=== PATIENT | male | born 1945 | race Caucasian/White ===

== ENCOUNTER 2024-06-08 10:54 | Day surgery (SDC) | payer OTHER, MEDICARE, SELFPAY ==
--- OUTSIDE RECORDS SUMMARY | 2024-06-02 03:49 | XMS_ITS | Continuity of Care Document ---
Author Name [facility] Organization [facility] Care Team Providers Care Memorandum Statement Clerk Name Role Phone [facility] Unavailable Unavailable Problems Combined list of problems from Department of Defense and Veterans Affairs facilities. It does not include entries that were removed or entered in error. 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) Active 976 Condition Aug 16, 2012 Entered By: GAURAV IYER Comment: s/p Photo Therapeutic Keratotomy in 2012 Entered By: GAURAV IYER Comment: Corneal transplant for recurrent ulcers in 2012 Entered By: GAURAV IYER Comment: Catract extraction in 2012 Entered By: GAURAV IYER Comment: Bleropheroplasty in 04/2011 [facility] Adjustment Disorder with Anxiety (ICD-9-CM 309.24) Active Condition [facility] Benign essential hypertension (SNOMED CT 1933798) Active Condition [facility] DJD * (ICD-9-CM 715.90) Active Condition [facility] F5 (Coagulation factor V) (eg, Hereditary Hypercoagulabilit y) Gene Analysis, Lei Active Condition Aug 16, 2012 Entered By: GAURAV IYER Comment: dx in 2009 prior to knee replaceement [facility] History of male erectile disorder (SNOMED CT 380522996) Active Condition [facility] HTN * (ICD-9-CM 401.9) Active Condition [facility] Hyperglycemia * (ICD-9-CM 790.29) Active Condition [facility] Hyperlipidemia (SNOMED CT 80759178) Active Condition [facility] Hyperlipidemia * (ICD-9-CM 272.4) Active Condition [facility] Inguinal hernia, without mention of obstruction or gangrene Active Condition Aug 16, 2012 Entered By: GAURAV IYER Comment: s/p L hernioraphy in 2007 and Rt in 2010 [facility] Keratoconus Nos Active Condition [facility] Kidney stone (SNOMED CT 28209203) Active Condition Aug 16, 2012 Entered By: GAURAV IYER Comment: s/p cystoscopy in 2012 Entered By: GAURAV IYER Comment: recurrence in 2007 but no further interventionsAug 16, 2012 Entered By: GAURAV IYER Comment: CT scan in 01/30 Stable [facility] Nephrolithiasis * (ICD-9-CM 592.0) Active Condition [facility] Osteoarthritis (SNOMED CT 345134652) Active Condition Aug 16, 2012 Entered By: GAURAV IYER Comment: Rt knee injury in 1968. 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 Medication Details Route Status Patient Instructions Prescription Expires Prescription Number Last Dispense Date Ordering Provider Order Date Order Qty Source ASCORBIC ACID 500MG TAB TAKE ONE TABLET BY MOUTH EVERY DAY ORAL ACTIVE JAYLON,ARS HAD 2012 [facility] ASPIRIN 81MG TAB,EC TAKE ONE TABLET BY MOUTH ORAL ACTIVE JAYLON,ARS HAD 2012 [facility] ATORVASTATI N CA 20MG TAB TAKE ONE TABLET BY MOUTH AT BEDTIME (FULL TABLET DOSE) FOR CHOLESTE ROL ORAL ACTIVE 09/21/2024 [id number] JAYLON,ARS HAD 2023 90 [facility] ATORVASTATI N CA 20MG TAB TAKE ONE TABLET BY MOUTH AT BEDTIME (FULL TABLET DOSE) FOR CHOLESTE ROL ORAL DISCONT INUED 01/28/2024 [id number] 4 JAYLON,ARS HAD 2022 90 [facility] EPINEPHRINE (EQV-EPI-PE N) 0.3MG/0.3ML INJECTOR INJECT 1 PEN DIRECTED NEEDED FOR ALLERGIC REACTION ACTIVE 11/24/2024 [id number] 4 JAYLON,ARS HAD 2023 2 [facility] GLUCOSAMINE CAP/TAB TAKE ACTIVE JAYLON,ARS HAD 2012 [facility] HYDROCHLORO THIAZIDE 12.5MG/GAYE NOPRIL 20MG TAB TAKE 1 TABLET BY MOUTH EVERY DAY ORAL DISCONT INUED 05/01/2023 [id number] 3 JAYLON,ARS HAD 2021 90 [facility] HYDROCHLORO THIAZIDE 12.5MG/GAYE NOPRIL 20MG TAB TAKE 1 TABLET BY MOUTH EVERY DAY ORAL 05/05/2024 [id number] 4 JAYLON,ARS HAD 2022 90 [facility] MARINE LIPID (FISH OIL) CAP,ORAL TAKE 3000GRAM BY MOUTH ORAL ACTIVE JAYLON,ARS HAD 2012 [facility] MULTIVITAMI NS CAP/TAB TAKE ONE TABLET BY MOUTH EVERY DAY ORAL ACTIVE JAYLON,ARS HAD 2012 [facility] SILDENAFIL CITRATE 100MG TAB TAKE ONE TABLET BY MOUTH NEEDED 1 HOUR BEFORE ANTICIPA HIGINIO SEXUAL ACTIVITY ORAL 05/05/2024 [id number] 4 JAYLON,ARS HAD 2022 18 [facility] Allergies, Adverse Reactions, Alerts Combined list of allergies from Department of Defense and Veterans Affairs facilities. It does not include entries that were removed or entered in error. Substance Category Reaction Severity Reaction type Status Date Reported Comments Source BEE STINGS Propensity to adverse reaction (finding) active 7 [facility] BEE STINGS Propensity to adverse reaction (finding) Anaphylaxis active 3 [facility] Immunizations Combined list of available immunizations from the Department of Defense and Veterans Affairs facilities. Immunization Series Date Given Administered By Site Reaction Lot Number CVX Code Drug Engraver Apprentice Decorative Status Comments Source INFLUENZA, SPLIT VIRUS, TRIVALENT, PF 2023 KEKE VELIZ LEFT DELTO ID [id number] 140 complet ed [place] [facility] COVID-19 (PFIZER), MRNA, LNP-S, PF, NEAL-SUCROSE, 30 MCG/0.3 ML (AGES 12+ YEARS) 1 2022 SERJIO LAW RIGHT DELTO ID [id number] 309 complet ed [place] [facility] INFLUENZA, HIGH-DOSE, QUADRIVALENT 2022 SERJIO LAW RIGHT DELTO ID [id number] 197 complet ed [facility] [facility] COVID-19 (PFIZER), MRNA, LNP-S, BIVALENT BOOSTER, PF, 30 MCG/0.3 ML DOSE 1 2021 300 complet ed PFR; [id number]; 3 [facility] INFLUENZA VACCINE, QUADRIVALENT, ADJUVANTED 2021 205 complet ed [facility] COVID-19 (PFIZER), MRNA, LNP-S, PF, 30 MCG/0.3 ML DOSE, NEAL-SUCROSE (AGES 12+ YEARS) 4 2021 217 complet ed PFR; [id number]; 2 [place] [facility] COVID-19 (PFIZER), MRNA, LNP-S, PF, 30 MCG/0.3 ML DOSE 3 2020 208 complet ed PFR; [id number]; 1 [place] [facility] INFLUENZA, INJECTABLE, QUADRIVALENT, PRESERVATIVE FREE 2020 150 complet ed [facility] COVID-19 (PFIZER), MRNA, LNP-S, PF, 30 MCG/0.3 ML DOSE 2 2020 208 complet ed PFR; [id number]; 1 [facility] COVID-19 (PFIZER), MRNA, LNP-S, PF, 30 MCG/0.3 ML DOSE 1 2020 208 complet ed PFR; [id number]; 1 [facility] INFLUENZA, INJECTABLE, QUADRIVALENT, PRESERVATIVE FREE 2019 150 complet ed [place] [facility] INFLUENZA, HIGH DOSE SEASONAL 2018 135 complet ed [facility] TD (ADULT) 2015 138 complet ed [employer], [id number], 7 [facility] ZOSTER LIVE 2014 121 complet ed [employer] lot# [id number], expiratio n 06-14-15 [facility] TD (ADULT), 2 LF TETANUS TOXOID, PRESERVATIVE FREE, ADSORBED 2010 09 complet ed [facility] TDAP 2005 115 complet ed [facility] TD(ADULT) UNSPECIFIED FORMULATION 2002 139 complet ed [facility] TD (ADULT), 2 LF TETANUS TOXOID, PRESERVATIVE FREE, ADSORBED 1993 09 complet ed [facility] Results Combined list of recent chemistry, hematology and other laboratory results from Department of Defense and Veterans Affairs, ranging from 15 months to all on record, depending upon the facility. Order Name Results Value Reference Range Date Interpretation Specimen Comments Source PSA PROSTATE SPECIFIC AG [MASS/VOLUM E] IN SERUM OR PLASMA <0.01n g/mL <4.00 - 4.00 09/17 Specimen Type: SERUM No comment entered. Ordering Provider: ANGIE IYER Report Released Date/Time: Aug 05, 2023 05:03 PM Reporting Lab: [facility] [address] Performing Lab: [facility] [address] [facility] HEMOGLOBI N A1C HEMOGLOBIN A1C/HEMOGLO BIN.TOTAL IN BLOOD 5.3 4.0 - 6.0 09/17 Specimen Type: BLOOD Comment: Values obtained from A1C measurement s can vary. For typical A1C assays, a reported value of 7.0 could actually be between 6.7 and 7.3 if measured by a reference method. A reported value of 9.0 could actually be between 8.7 and 9.3. Ref: http://www. ngsp.org/[place] Pdata.asp Ordering Provider: ANGIE IYER Report Released Date/Time: Aug 05, 2023 05:03 PM Reporting Lab: [facility] [address] Performing Lab: [facility] [address] [facility] TSH W/REFLEX TO FREE T4 THYROTROPIN [UNITS/VOLU ME] IN SERUM OR PLASMA 1.61 u[IU]/ mL 0.35 - 4.94 09/17 Specimen Type: PLASMA No comment entered. Ordering Provider: ANGIE IYER Report Released Date/Time: Aug 05, 2023 05:03 PM Reporting Lab: [facility] [address] Performing Lab: [facility] [address] [facility] COMPREHEN SIVE METABOLIC PANEL+MG CREATININE [MASS/VOLUM E] IN SERUM OR PLASMA 1.0 mg/dL 0.7 - 1.2 09/17 Specimen Type: PLASMA No comment entered. Ordering Provider: ANGIE IYER Report Released Date/Time: Aug 05, 2023 05:03 PM Reporting Lab: [facility] [address] Performing Lab: [facility] [address] [facility] COMPREHEN SIVE METABOLIC PANEL+MG UREA NITROGEN [MASS/VOLUM E] IN SERUM OR PLASMA 19 mg/dL 8 - 26 09/17 Specimen Type: PLASMA No comment entered. Ordering Provider: ANGIE IYER Report Released Date/Time: Aug 05, 2023 05:03 PM Reporting Lab: [facility] [address] Performing Lab: [facility] [address] [facility] COMPREHEN SIVE METABOLIC PANEL+MG GLUCOSE [MASS/VOLUM E] IN SERUM OR PLASMA 109 mg/dL 70 - 100 09/17 H Specimen Type: PLASMA No comment entered. Ordering Provider: ANGIE IYER Report Released Date/Time: Aug 05, 2023 05:03 PM Reporting Lab: [facility] [address] Performing Lab: [facility] [address] [facility] COMPREHEN SIVE METABOLIC PANEL+MG SODIUM [MOLES/VOLU ME] IN SERUM OR PLASMA 138 mmol/L 136 - 145 09/17 Specimen Type: PLASMA No comment entered. Ordering Provider: ANGIE IYER Report Released Date/Time: Aug 05, 2023 05:03 PM Reporting Lab: [facility] [address] Performing Lab: [facility] [address] [facility] COMPREHEN SIVE METABOLIC PANEL+MG POTASSIUM [MOLES/VOLU ME] IN SERUM OR PLASMA 4.0 mmol/L 3.5 - 5.1 09/17 Specimen Type: PLASMA No comment entered. Ordering Provider: ANGIE IYER Report Released Date/Time: Aug 05, 2023 05:03 PM Reporting Lab: [facility] [address] Performing Lab: [facility] [address] [facility] COMPREHEN SIVE METABOLIC PANEL+MG CHLORIDE [MOLES/VOLU ME] IN SERUM OR PLASMA 102 mmol/L 98 - 107 09/17 Specimen Type: PLASMA No comment entered. Ordering Provider: ANGIE IYER Report Released Date/Time: Aug 05, 2023 05:03 PM Reporting Lab: [facility] [address] Performing Lab: [facility] [address] [facility] COMPREHEN SIVE METABOLIC PANEL+MG CARBON DIOXIDE, TOTAL [MOLES/VOLU ME] IN SERUM OR PLASMA 26 mmol/L 22 - 29 09/17 Specimen Type: PLASMA No comment entered. Ordering Provider: ANGIE IYER Report Released Date/Time: Aug 05, 2023 05:03 PM Reporting Lab: [facility] [address] Performing Lab: [facility] [address] [facility] COMPREHEN SIVE METABOLIC PANEL+MG CALCIUM [MASS/VOLUM E] IN SERUM OR PLASMA 9.9 mg/dL 8.4 - 10.2 09/17 Specimen Type: PLASMA No comment entered. Ordering Provider: ANGIE IYER Report Released Date/Time: Aug 05, 2023 05:03 PM Reporting Lab: [facility] [address] Performing Lab: [facility] [address] [facility] COMPREHEN SIVE METABOLIC PANEL+MG PROTEIN [MASS/VOLUM E] IN SERUM OR PLASMA 7.1 g/dL 6.0 - 8.3 09/17 Specimen Type: PLASMA No comment entered. Ordering Provider: ANGIE IYER Report Released Date/Time: Aug 05, 2023 05:03 PM Reporting Lab: [facility] [address] Performing Lab: [facility] [address] [facility] COMPREHEN SIVE METABOLIC PANEL+MG ALBUMIN [MASS/VOLUM E] IN SERUM OR PLASMA 4.3 g/dL 3.5 - 5.2 09/17 Specimen Type: PLASMA No comment entered. Ordering Provider: ANGIE IYER Report Released Date/Time: Aug 05, 2023 05:03 PM Reporting Lab: [facility] [address] Performing Lab: [facility] [address] [facility] COMPREHEN SIVE METABOLIC PANEL+MG BILIRUBIN.T OTAL [MASS/VOLUM E] IN SERUM OR PLASMA 0.9 mg/dL 0.2 - 1.2 09/17 Specimen Type: PLASMA No comment entered. Ordering Provider: ANGIE IYER Report Released Date/Time: Aug 05, 2023 05:03 PM Reporting Lab: [facility] [address] Performing Lab: [facility] [address] [facility] COMPREHEN SIVE METABOLIC PANEL+MG MAGNESIUM [MASS/VOLUM E] IN SERUM OR PLASMA 1.8 mg/dL 1.6 - 2.6 09/17 Specimen Type: PLASMA No comment entered. Ordering Provider: ANGIE IYER Report Released Date/Time: Aug 05, 2023 05:03 PM Reporting Lab: [facility] [address] Performing Lab: [facility] [address] [facility] COMPREHEN SIVE METABOLIC PANEL+MG ANION GAP IN SERUM OR PLASMA 10 mmol/L 5 - 15 09/17 Specimen Type: PLASMA No comment entered. Ordering Provider: ANGIE IYER Report Released Date/Time: Aug 05, 2023 05:03 PM Reporting Lab: [facility] [address] Performing Lab: [facility] [address] [facility] COMPREHEN SIVE METABOLIC PANEL+MG ALKALINE PHOSPHATASE [ENZYMATIC ACTIVITY/VO LUME] IN SERUM OR PLASMA 63 U/L 40 - 150 09/17 Specimen Type: PLASMA No comment entered. Ordering Provider: ANGIE IYER Report Released Date/Time: Aug 05, 2023 05:03 PM Reporting Lab: [facility] [address] Performing Lab: [facility] [address] [facility] COMPREHEN SIVE METABOLIC PANEL+MG ALANINE AMINOTRANSF ERASE [ENZYMATIC ACTIVITY/VO LUME] IN SERUM OR PLASMA 27 U/L <55 - 55 09/17 Specimen Type: PLASMA No comment entered. Ordering Provider: ANGIE IYER Report Released Date/Time: Aug 05, 2023 05:03 PM Reporting Lab: [facility] [address] Performing Lab: [facility] [address] [facility] COMPREHEN SIVE METABOLIC PANEL+MG ASPARTATE AMINOTRANSF ERASE [ENZYMATIC ACTIVITY/VO LUME] IN SERUM OR PLASMA 25 U/L <34 - 34 09/17 Specimen Type: PLASMA No comment entered. Ordering Provider: ANGIE IYER Report Released Date/Time: Aug 05, 2023 05:03 PM Reporting Lab: [facility] [address] Performing Lab: [facility] [address] [facility] COMPREHEN SIVE METABOLIC PANEL+MG GLOMERULAR FILTRATION RATE/1.73 SQ M.PREDICTED [VOLUME RATE/AREA] IN SERUM, PLASMA OR BLOOD BY CREATININE- BASED FORMULA (CKD-EPI 2020) 77 60 09/17 Specimen Type: PLASMA No comment entered. Ordering Provider: ANGIE IYER Report Released Date/Time: Aug 05, 2023 05:03 PM Reporting Lab: [facility] [address] Performing Lab: [facility] [address] [facility] LIPID PANEL,NON -FASTING CHOLESTEROL [MASS/VOLUM E] IN SERUM OR PLASMA 174 mg/dL <199 - 199 09/17 Specimen Type: PLASMA No comment entered. Ordering Provider: ANGIE IYER Report Released Date/Time: Aug 05, 2023 05:03 PM Reporting Lab: [facility] [address] Performing Lab: [facility] [address] [facility] LIPID PANEL,NON -FASTING CHOLESTEROL IN HDL [MASS/VOLUM E] IN SERUM OR PLASMA 46 mg/dL 40 09/17 Specimen Type: PLASMA No comment entered. Ordering Provider: ANGIE IYER Report Released Date/Time: Aug 05, 2023 05:03 PM Reporting Lab: [facility] [address] Performing Lab: [facility] [address] [facility] LIPID PANEL,NON -FASTING CHOLESTEROL IN LDL [MASS/VOLUM E] IN SERUM OR PLASMA BY CALCULATION 96 mg/dL <99 - 99 09/17 Specimen Type: PLASMA No comment entered. Ordering Provider: ANGIE IYER Report Released Date/Time: Aug 05, 2023 05:03 PM Reporting Lab: [facility] [address] Performing Lab: [facility] [address] [facility] LIPID PANEL,NON -FASTING CHOLESTEROL IN VLDL [MASS/VOLUM E] IN SERUM OR PLASMA BY CALCULATION 32 mg/dL <29 - 29 09/17 H Specimen Type: PLASMA No comment entered. Ordering Provider: ANGIE IYER Report Released Date/Time: Aug 05, 2023 05:03 PM Reporting Lab: [facility] [address] Performing Lab: [facility] [address] [facility] LIPID PANEL,NON -FASTING CHOLESTEROL NON HDL [MASS/VOLUM E] IN SERUM OR PLASMA 128 mg/dL <129 - 129 09/17 Specimen Type: PLASMA No comment entered. Ordering Provider: ANGIE IYER Report Released Date/Time: Aug 05, 2023 05:03 PM Reporting Lab: [facility] [address] Performing Lab: [facility] [address] [facility] LIPID PANEL,NON -FASTING TRIGLYCERID E [MASS/VOLUM E] IN SERUM OR PLASMA 162 mg/dL <149 - 149 09/17 H Specimen Type: PLASMA No comment entered. Ordering Provider: ANGIE IYER Report Released Date/Time: Aug 05, 2023 05:03 PM Reporting Lab: [facility] [address] Performing Lab: [facility] [address] [facility] Vital Signs Combined list of inpatient and outpatient Vital Signs from Department of Defense and Veterans Affairs, ranging from 12 months to all on record, depending upon the facility. Vital Sign Value Date Comments Source SYSTOLIC BLOOD PRESSURE 162 09/21/2023 13:38:43 [facility] DIASTOLIC BLOOD PRESSURE 96 09/21/2023 13:38:43 [facility] PULSE OXIMETRY 96 09/21/2023 13:38:43 [facility] WEIGHT 206.2 09/21/2023 13:38:43 [facility] BMI 31kg/m2 09/21/2023 13:38:43 [facility] PAIN 0 09/21/2023 13:38:43 [facility] HEIGHT 68.5 09/21/2023 13:38:43 [facility] TEMPERATURE 97.4 09/21/2023 13:38:43 [facility] PULSE 64 09/21/2023 13:38:43 [facility] RESPIRATION 17 09/21/2023 13:38:43 [facility] Encounters Combined list of: 1) Encounters from Department of Veterans Affairs facilities going back up to thelast 18 months. 2) Encounters from the Department of Defense facilities going back up to 280 months. Location Location Details Encounter Type Encounter Number Reason For Visit Attending Provider ADM Date DC Date Status Disposition Source [place] [facility] ADMN SARSCOV2 VACC 1 DOSE [id number] Diagnos is: ICD-10- CM Z23 Encount er for immuniz ation<b r/> Lucy LAW 05/22 [place] [facility] [place] [facility] Outpatient Encounter [id number] 05/22 [facility] [place] [facility] Outpatient Encounter [id number] 06/02 [facility] [place] [facility] Outpatient Encounter [id number] 08/05 [facility] [place] [facility] Outpatient Encounter [id number] DIGNA JACQUES 09/17 [facility] Outpatient Encounter [id number] Diagnos is: ICD-10- CM D07.5 Carcino ma in situ of prostat e
FLORENCIO IYER 09/20 [facility] [place] [facility] Outpatient Encounter [id number] CORBY LOPEZ 01/10 [place] [place] [facility] Outpatient Encounter [id number] Vince GRAHAM 01/11 [place] [facility] [place] [facility] Outpatient Encounter [id number] HERMELINDA MCCULLOUGH SA 01/12 [facility] [place] [facility] Outpatient Encounter [id number] 01/21 [place] [facility] [place] [facility] Outpatient Encounter [id number] Kimberly JAIMES 02/03 [place] [facility] [place] [facility] Outpatient Encounter [id number] 02/03 [place] [facility] [place] [facility] Outpatient Encounter [id number] 03/15 [place] [facility] [facility] OFF/OP EST OCTOBER X REQ PHY/QHP [id number] Diagnos is: ICD-10- CM Z23 Encount er for immuniz ation<b r/> FABIEN VELIZ 03/16 [place] [facility] Social History Combined list of available smoking, tobacco, and other social history from Department of Defense and [facility] facilities. Social History Type Response Date Comment [facility] e Tobacco smoking status [facility]-TOBACCO NEVER USED 09/18/2023 GEORGE Clarke [facility] History of tobacco use [place]-TOBACCO NEVER USED 04/30/2022 [facility] History of tobacco use [place]-TOBACCO NEVER USED 03/04/2021 [facility] History of tobacco use [place]-TOBACCO NEVER USED 09/27/2018 [facility] History of tobacco use 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 [employer] USER 10/14/2017 [facility] History of tobacco use 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 [employer]ENT USER 11/03/2016 [facility] History of tobacco use 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 [employer]ENT USER 10/23/2015 [facility] History of tobacco use 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 [employer]ENT USER 10/25/2014 [facility] History of tobacco use 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 [employer]ENT USER 09/28/2013 [facility] History of tobacco use 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 [employer]ENT USER 08/16/2012 [facility] History of tobacco use 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-USER OF TOBACCO 01/07/2010 [facility] History of tobacco use 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 [employer] USER 07/20/2006 [facility] Advance Directives List of completed, amended, or rescinded Advance Directives on record at Department of [facility] Affairs facilities. An actual copy of the Directive is not included. Date Advance Directive Provider Source 10/08/2021 ADVANCE DIRECTIVE KRISTINE [facility] 06/27/2011 ADVANCE DIRECTIVE DISCUSSION [facility] 06/27/2011 ADVANCE DIRECTIVE KENYA AVILA [facility]
--- OUTSIDE RECORDS SUMMARY | 2024-06-02 03:49 | XMS_ITS | Encounter Summary ---
Author Name [facility] [place] Address [address] [place] [address] Care Team Providers Care Employee Benefits Director Name Role Phone GAURAV IYER Primary Care Provider Unavailabl e Insurance Providers: All historical and current Section Date Range: From patient's date of to the date document was created. This section includes the names of all active insurance providers for the patient. Insurance Provider Type of Coverage Plan Name Start of Policy Coverage End of Policy Coverage Group Number Member ID Insurance Provider's Telephone Number Policy Cazares's Name Patient's Relationship to Policy Cazares BCBS [facility] (WNR) MEDICARE ADVANTAGE [facility]) Jun 22, 2022 [id number] [phone] OLESYA REDDY PATIENT CIGNA RETIREE XOG May 22, 2010 [id number] [phone] OLESYA REDDY PATIENT CIGNA MEDICARE SUPPLEMENT MEDICARE SUPPLEMEN RADHIKA MEDIC ARE SUPPL EMENT Jun 22, 2016 PLAN [place] BASIC [id number] OLESYA REDDY PATIENT MEDICARE (WNR) MEDICARE (M) PART A May 22, 2010 PART A [id number] [phone] OLESYA REDDY PATIENT MEDICARE (WNR) MEDICARE (M) PART B May 22, 2010 PART B [id number] [phone] OLESYA REDDY PATIENT MEDICARE (WNR) MEDICARE (M) PART A May 22, 2010 PART A [id number] [phone] OLESYA REDDY PATIENT MEDICARE (WNR) MEDICARE (M) PART B May 22, 2010 PART B [id number] [phone] OLESYA REDDY PATIENT Selected Encounter This section includes the information on record at [place] for the Encounter. Date/Time Encounter Type Encounter Description Reason Provider Source Sep 18, 2023 03:06 PM Outpatient Encounter PRIMARY CARE/MEDICINE CORI JACQUES Pradeep Encounter Template Text not used by [place] Plan of Treatment: Future Appointments (+ 6 months) and Future Tests (+/- 45 days) The Plan of Treatment section includes future care activities for the patient from all [place] treatmentfacilities. This section includes future appointments and future orders which are active, pending or scheduled. Future Appointments This section includes appointments that were scheduled to occur 6 months from the date of the Encounter, up to a maximum of 20 appointments. The data comes from all [place] treatment facilities. Appointment Date/Time Appointment Type Appointme nt Facility Name Sep 21, 2023 01:30 PM AMBULATORY - MEDICINE [facility] Jan 13, 2024 08:11 AM AMBULATORY - NONE [facility] Lab Results: +/- 30 days of the encounter This section includes the Chemistry and Hematology Lab Results on record with [place] for the patient. Radiology Reports and Pathology Reports are provided separately, in subsequent sections. Lab Results This section contains the Chemistry/Hematology Results that were resulted 30 days before or 30 daysafter the date of the Encounter. Date/Time Source Result Type Result - Unit Interpretation Reference Range Comment Sep 18, 2023 09:46 AM [facility] HEMOGLOBIN A1C Specimen Type: BLOOD Comment: Values obtained from A1C measurements can vary. For typical A1C assays, a reported value of 7.0 could actually be between 6.7 and 7.3 if measured by a reference method. A reported value of 9.0 could actually be between 8.7 and 9.3. Ref: http://www.ngs p.org/CAPdata. asp Ordering Provider: GAURAV IYER Report Released Date/Time: Aug 05, 2023 05:03 PM Reporting Lab: [facility] [id number] Performing Lab: [facility] [id number] HEMOGLOBIN A1C 5.3 4.0-6.0 Sep 18, 2023 09:46 AM [facility] PSA Specimen Type: SERUM No comment entered. Ordering Provider: GAURAV IYER Report Released Date/Time: Aug 05, 2023 05:03 PM Reporting Lab: [facility] [phone] Performing Lab: [facility] [id number] PSA <0.01 ng/mL <4.00 Sep 18, 2023 09:46 AM [facility] TSH W/REFLEX TO FREE T4 Specimen Type: PLASMA No comment entered. Ordering Provider: GAURAV IYER Report Released Date/Time: Aug 05, 2023 05:03 PM Reporting Lab: [facility] [id number] Performing Lab: [facility] [id number] TSH 1.61 u[IU]/mL 0.35-4.94 Sep 18, 2023 09:46 AM [facility] LIPID PANEL,NON-FASTING Specimen Type: PLASMA No comment entered. Ordering Provider: GAURAV IYER Report Released Date/Time: Aug 05, 2023 05:03 PM Reporting Lab: [facility] [id number] Performing Lab: [facility] [phone] CHOLESTEROL 174 mg/dL <199 .HDL 46 mg/dL >40 LDL CALCULATION 96 mg/dL <99 VLDL CALCULATION 32 mg/dL H <29 NON HDL CHOLESTEROL 128 mg/dL <129 TRIG(NON FASTING) 162 mg/dL H <149 Sep 18, 2023 09:46 AM [facility] COMPREHENSIVE METABOLIC PANEL+MG Specimen Type: PLASMA No comment entered. Ordering Provider: GAURAV IYER Report Released Date/Time: Aug 05, 2023 05:03 PM Reporting Lab: [facility] [phone] Performing Lab: [facility] [phone] CREATININE 1.0 mg/dL 0.7-1.2 UREA NITROGEN 19 mg/dL 8-26 GLUCOSE 109 mg/dL H 70-100 SODIUM 138 mmol/L 136-145 POTASSIUM 4.0 mmol/L 3.5-5.1 CHLORIDE 102 mmol/L 98-107 CO2 26 mmol/L 22-29 CALCIUM 9.9 mg/dL 8.4-10.2 PROTEIN,TOTAL 7.1 g/dL 6.0-8.3 ALBUMIN 4.3 g/dL 3.5-5.2 BILIRUBIN, TOTAL 0.9 mg/dL 0.2-1.2 MAGNESIUM 1.8 mg/dL 1.6-2.6 ANION GAP 10 mmol/L 5-15 ALKALINE PHOSPHATASE 63 U/L 40-150 ALT/SGPT 27 U/L <55 AST/SGOT 25 U/L <34 .CREAT EGFR(CKD-EPI) 77 >60 Social History: Smoking Status (Most current) and Tobacco Use (All prior to encounter date) This section includes the most current, and the historical, smoking and tobacco- related health factors from the [place] facility where the Encounter took place. Current Smoking Status This section includes the most current smoking, or tobacco-related health factor, from the [place] facility where the Encounter took place. Date/Time Current Smoking Status Comment Facil ity Sep 18, 2023 03:06 PM [place]-TOBAC[place] NEVER USED [facility] Tobacco Use History This section includes a history of the smoking, or tobacco-related health factors, that were collected on or before the date of the Encounter. The data comes from the [place] facility where the Encounter took place. Date/Time Smoking Status/Tobacco Use Comment F krystal Mar 04, 2021 12:55 PM [place]-TOBAC[place] NEVER USED [facility] Advance Directives: All historical and current Section Date Range: From patient's date of to the date document was created. This section includes ALL of a patient's completed or amended [place] Advance and Rescinded Directives. The entries below indicate that a directive exists for the patient, but an actual copy is not included with this document. The data comes from all [place] facilities. Date Advance Directives Provider Source Oct 08, 2021 ADVANCE DIRECTIVE KRISTINE PINK [facility] Oct 08, 2021 ADVANCE DIRECTIVE DISCUSSION Patsy PINK [facility] Jun 27, 2011 ADVANCE DIRECTIVE DISCUSSION [facility] Jun 27, 2011 ADVANCE DIRECTIVE KENYA AVILA [facility] Encounter Notes: All associated encounter notes This section contains the clinical notes associated to the Encounter. Date/Time Encounter Note(s) Provider Source Sep 18, 2023 03:12 PM ADVANCE DIRECTIVE: LOCAL TITLE: AD NOTIFICATION AND SCREENING STANDARD TITLE: ADVANCE DIRECTIVE DATE OF NOTE: SEP 18, 2023@15:12 ENTRY DATE: SEP 18, 2023@15:12:19 AUTHOR: CORI JACQUES EXP COSIGNER: URGENCY: STATUS: COMPLETED ADVANCE DIRECTIVE NOTIFICATION: Patient was given written notification of the following rights: 1. Accept or refuse any medical treatment. 2. Complete a durable power of commonwealth attorney for health care. 3. Complete a living will. ADVANCE DIRECTIVE SCREENING: Does patient have an Advance Directive? The patient has an Advance Directive. Does the patient wish to make any changes or revoke their current Advance Directive? No changes requested at this time. /brissa/ CORI JACQUES LPN INSTALLER APPRENTICE Signed: 09/18/2023 15:12 [facility] Sep 18, 2023 03:06 PM PRIMARY CARE NURSI NG NOTE: LOCAL TITLE: [facility] NURSING PROGRESS NOTE STANDARD TITLE: PRIMARY CARE NURSING NOTE DATE OF NOTE: SEP 18, 2023@15:06 ENTRY DATE: SEP 18, 2023@15:06:29 AUTHOR: CORI JACQUES EXP COSIGNER: URGENCY: STATUS: COMPLETED [facility] NURSING PROGRESS NOTE Has ADDENDA Alcohol Use Screen (AUDIT-C): Alcohol Screen: SCREEN FOR ALCOHOL (AUDIT-C) An alcohol screening test (AUDIT-C) was negative (score=1). 1. How often did you have a drink containing alcohol in the past year? Consider a drink to be a 12 ounce can or bottle of regular beer, 8 ounces of malt liquor, a 5 ounce glass of table wine, or a 1.5 ounce shot of liquor (like scotch, gin, or vodka). Monthly or less 2. How many drinks containing alcohol did you have on a typical day when you were drinking in the past year? One or two drinks 3. How often did you have six or more drinks on one occasion in the past year? Never PTSD Screening: PC-PTSD-5 A PTSD screening test (PC-PTSD-5) was negative (score=0). IN THE PAST MONTH, have you ever had any experience that was so frightening, horrible or traumatic. For example: A serious accident or fire a physical or sexual assault or abuse An earthquake or flood A war Seeing someone be killed or seriously injured Having a loved one through homicide or suicide 1. Have you ever experienced this kind of event? NO 2. Had nightmares about the event(s) or thought about the event(s) when you did not want to? Response not required due to responses to other questions. 3. Tried hard not to think about the event(s) or went out of your way to avoid situations that reminded you of the event(s)? Response not required due to responses to other questions. 4. Been constantly on guard, watchful, or easily startled? Response not required due to responses to other questions. 5. Chancellor numb or detached from people, activities, or your surroundings? Response not required due to responses to other questions. 6. Chancellor guilty or unable to stop blaming yourself or others for the event(s) or any problems the event(s) may have caused? Response not required due to responses to other questions. Nursing Annual Screening: Fall History Screen During the past 12 months, have you had any falls? Patient reports having had 2 or more falls within the past 12 months. MEDICATIONS: Patient is on one of the following medication classes: Antihypertensives, Antidepressants, Antipsychotics, Diuretics, or Controlled substance medication used for pain. Script Talk Screen Are you able to read your prescription bottles with your glasses, magnifiers or other aids? Yes or patient not taking any prescriptions. Skin Screen Patient reports any current pressure ulcers, a history of pressure ulcers, or a wound from a nurses medical assistants phlebotomists or Patient is bed-confined or a wheelchair-user or Patient requires assistance to transfer/change position No, Skin Screen is Negative Home Abuse/Violence Screen Is your home free of abuse and violence? Yes MOVE! Program Screen Body Mass Index (BMI)= 29.7 [place]: Collection DT Specimen Test Name Result Units Ref Range 04/30/2022 13:42 BLOOD !! HEMOGLOBIN A1C 5.0 % 4.0 - 6.0 !! Indicates COMMENTS AVAILABLE...Refer to Interim Lab Report. [place] Hgb A1C: No data available Ramer Hgb A1C: No data available Point of Care Hgb A1C: POC HGB A1C____ Outpatient Nutrition Screen Body Mass Index (BMI)= 29.7 [place]: Collection DT Specimen Test Name Result Units Ref Range 04/30/2022 13:42 BLOOD !! HEMOGLOBIN A1C 5.0 % 4.0 - 6.0 !! Indicates COMMENTS AVAILABLE...Refer to Interim Lab Report. Bakari Frias Hgb A1C: No data available Ramer Hgb A1C: No data available Point of Care Hgb A1C: POC HGB A1C____ Is patient's BMI less than 18.5? No Does patient have swallowing, coughing, or chewing problems affecting oral intake? No Has patient experienced unplanned weight loss or gain greater than 10 pounds over the last 2 months? No Is patient's Hgb A1C (Glycosylated Hemoglobin) greater than 9.5? Information not available Is patient receiving Total Parenteral Nutrition (TPN) or Tube Feedings? No Patient Health Education Screen BARRIERS/SPECIAL NEEDS: No barriers identified PREFERRED STYLE OF LEARNING: No preference stated Client Assistive Service (LYNNE) Screen Does the patient require assistance with outpatient visit? No Tobacco Use Screening: The patient has never used tobacco. Homelessness/Food Insecurity Screen: In the past 2 months, have you been living in stable housing that you own, rent, or stay in as part of a household? Yes - Living in stable housing. Are you worried or concerned that in the next 2 months you may NOT have stable housing that you own, rent, or stay in as part of a household? No - Not worried about housing near future The reports the following: Within the past 12 months, you worried whether your food would run out before you got money to buy more. Never true Within the past 12 months, the food you bought just didn't last and you didn't have money to get more. Never true Food Assistance Programs [facility] Food Assistance Programs [facility] /brissa/ CORI JACQUES LPN, LPN Signed: 09/18/2023 15:09 09/18/2023 ADDENDUM STATUS: COMPLETED Sexual Orientation: The patient thinks of their sexual orientation as: Straight or Heterosexual /brissa/ CORI JACQUES LPN, LPN Signed: 09/18/2023 15:[address] [facility]
--- OUTSIDE RECORDS SUMMARY | 2024-06-02 03:49 | XMS_ITS | Encounter Summary ---
Author Name [facility] [place] Address [address] [place] [address] Care Team Providers Care Business Development Executive Name Role Phone GAURAV IYER Primary Care [...] Name Patient's Relationship to Policy Cazares BCBS [facility] ([facility]) MEDICARE ADVANTAGE [facility] ([facility]) Jun 22, 2022 [id number] [phone] OLESYA REDDY PATIENT CIGNA RETIREE ALLIA [employer] May 22, 2010 [id number] OLESYA REDDY PATIENT CIGNA MEDICARE SUPPLEMENT MEDICARE SUPPLEMEN RADHIKA MEDIC ARE SUPPL EMENT Jun 22, 2016 PLAN [place] BASIC [id number] OLESYA REDDY PATIENT MEDICARE (WNR) MEDICARE (M) PART A May 22, 2010 PART A [id number] [phone] OLESYA REDDY PATIENT MEDICARE (WNR) MEDICARE (M) PART B May 22, 2010 PART B [id number] [phone] OLESYA REDDY PATIENT MEDICARE (WNR) MEDICARE (M) PART A May 22, 2010 PART A [id number] OLESYA REDDY PATIENT MEDICARE (WNR) MEDICARE (M) PART B May 22, 2010 PART B [id number] OLESYA REDDY PATIENT Selected Encounter This section includes the information on record at [place] for the Encounter. Date/Time Encounter Type Encounter Description Reason Pro vider Source Aug 05, 2023 09:16 AM Outpatient Encounter TELEPHONE TRIAGE IHE Encounter Template Text not used by [place] Plan of Treatment: Future Appointments (+ 6 months) and Future Tests (+/- 45 days) The Plan of Treatment section includes future care activities for the patient from all [place] treatmentfacilities. This section includes future appointments and future orders which are active, pending or scheduled. Future Appointments This section includes appointments that were scheduled to occur 6 months from the date of the Encounter, up to a maximum of 20 appointments. The data comes from all [place] treatment facilities. Appointment Date/Time Appointment Type Appointme nt Facility Name Sep 18, 2023 09:45 AM AMBULATORY - NONE [facility] Sep 21, 2023 01:30 PM [facility]ATORY - MEDICINE [facility] Jan 13, 2024 08:11 AM AMBULATORY - NONE [facility] Social History: Smoking Status (Most current) and Tobacco Use (All prior to encounter date) This section includes the most current, and the historical, smoking and tobacco- related health factors from the [place] facility where the Encounter took place. Current Smoking Status This section includes the most current smoking, or tobacco-related health factor, from the [place] facility where the Encounter took place. Date/Time Current Smoking Status Comment Facil ity Mar 04, 2021 12:55 PM [place]TO[place] NEVER USED [facility] Advance Directives: All historical and current Section Date Range: From patient's date of to the date document was created. This section includes ALL of a patient's completed or amended [place] Advance and Rescinded Directives. The entries below indicate that a directive exists for the patient, but an actual copy is not included with this document. The data comes from all [place] facilities. Date Advance Directives Provider Source Oct 08, 2021 ADVANCE DIRECTIVE DISCUSSION WILKEMEYER,Patsy BOTELLO [facility] Oct 08, 2021 ADVANCE DIRECTIVE CATERINAKRISTINE SCHOFIELD [facility] Jun 27, 2011 ADVANCE DIRECTIVE DISCUSSION KENYA AVILA [facility] Jun 27, 2011 ADVANCE DIRECTIVE KENYA AVILA [facility] Encounter Notes: All associated encounter notes This section contains the clinical notes associated to the Encounter. Date/Time Encounter Note(s) Provider Source Aug 05, 2023 05:04 PM ADDENDUM: LOCAL TITLE: Addendum STANDARD TITLE: ADDENDUM DATE OF NOTE: AUG 05, 2023@17:04:03 ENTRY DATE: AUG 05, 2023@17:04:03 AUTHOR: GAURAV IYER EXP COSIGNER: URGENCY: STATUS: COMPLETED annual' labs ordered as requested [place] interested in getting labs PRIOR to his visit on 09/21/23 Will request PACT MSA to please reach out to and schedule a lab appointment. /brissa/ GAURAV IYER MD STAFF PHYSICAN Signed: 08/05/2023 17:05 Receipt Acknowledged By: 08/06/2023 12:10 /brissa/ DIVINA DUKE MSA --- Original Document --- 08/05/23 CCC: SCHEDULING ADMINISTRATION: Primary Care Call Center Primary Care Provider Call. Please contact at the following number:[phone] called in to schedule annual and requested to have labs prior to appt. Notified the that no lab orders were in at this time but I would put in a note for him requesting them. can be reached at the phone number above. This note was created by a V23 [facility] AMSA/LUIS. Please do not alert this insurance underwriter sales by adding as a signer for future communications. Alerts are not monitored by this user, please reach out to [facility] Leadership instead if indicated. /brissa/ JOSE CARMONA [facility] AMSA Signed: 08/05/2023 09:18 Receipt Acknowledged By: 08/05/2023 16:59 /brissa/ EPHRAIM HURD REGISTERED NURSE 08/05/2023 ADDENDUM STATUS: COMPLETED will alert pcp of request. /brissa/ EPHRAIM HURD REGISTERED NURSE Signed: 08/05/2023 17:00 Receipt Acknowledged By: 08/05/2023 17:03 /brissa/ GAURAV IYER MD STAFF GAURAV HERNANDEZ [facility] Aug 05, 2023 05:00 PM ADDENDUM: LOCAL TITLE: Addendum STANDARD TITLE: ADDENDUM DATE OF NOTE: AUG 05, 2023@17:00:01 ENTRY DATE: AUG 05, 2023@17:00:01 AUTHOR: EPHRAIM HURD COSIGNER: URGENCY: STATUS: COMPLETED will alert pcp of request. /phoenix HURD REGISTERED NURSE Signed: 08/05/2023 17:00 Receipt Acknowledged By: 08/05/2023 17:03 /brissa/ GAURAV IYER MD STAFF LARRY --- Original Document --- 08/05/23 CCC: SCHEDULING ADMINISTRATION: Primary Care Call Center Primary Care Provider Call. Please contact at the following number:[phone] called in to schedule annual and requested to have labs prior to appt. Notified the that no lab orders were in at this time but I would put in a note for him requesting them. [place] can be reached at the phone number above. This note was created by a 3 [facility] Call [facility] ELIAS/LUIS. Please do not alert this insurance underwriter sales by adding as a signer for future communications. Alerts are not monitored by this user, please reach out to [facility] Leadership instead if indicated. /es/ JOSE CARMONA [facility] ELIAS Signed: 08/05/2023 09:18 Receipt Acknowledged By: 08/05/2023 16:59 /brissa/ EPHRAIM HURD REGISTERED NURSE 08/05/2023 ADDENDUM STATUS: UNSIGNED You may not VIEW this UNSIGNED Addendum. SEBREEEPHRAIM [facility] Aug 05, 2023 09:16 AM ADMINISTRATIVE NOT E: LOCAL TITLE: CCC: SCHEDULING ADMINISTRATION STANDARD TITLE: ADMINISTRATIVE NOTE DATE OF NOTE: AUG 05, 2023@09:16 ENTRY DATE: AUG 05, 2023@09:16:13 AUTHOR: JOSE BUCKLEY EXP COSIGNER: URGENCY: STATUS: COMPLETED CCC: SCHEDULING ADMINISTRATION Has ADDENDA Primary Care Call Center Primary Care Provider Call. Please contact at the following number:[phone] [place] called in to schedule annual and requested to have labs prior to appt. Notified the that no lab orders were in at this time but I would put in a note for him requesting them. can be reached at the phone number above. This note was created by a [facility]23 [facility] AMSA/LUIS. Please do not alert this insurance underwriter sales by adding as a signer for future communications. Alerts are not monitored by this user, please reach out to [facility] Leadership instead if indicated. /phoenix CARMONA [facility] AMSA Signed: 08/05/2023 09:18 Receipt Acknowledged By: 08/05/2023 16:59 /brissa/ EPHRAIM HURD REGISTERED NURSE 08/05/2023 ADDENDUM STATUS: COMPLETED will alert pcp of request. /phoenix HURD REGISTERED NURSE Signed: 08/05/2023 17:00 Receipt Acknowledged By: 08/05/2023 17:03 /brissa/ GAURAV IYER MD STAFF PHYSICAN 08/05/2023 ADDENDUM STATUS: COMPLETED annual' labs ordered as requested [place] interested in getting labs PRIOR to his visit on 09/21/23 Will request PACT MSA to please reach out to and schedule a lab appointment. /phoenix IYER MD STAFF PHYSICWENDY Signed: 08/05/2023 17:05 Receipt Acknowledged By: * AWAITING SIGNATURE * DIVINA EDWARDS DAJEE Z [facility]
--- OUTSIDE RECORDS SUMMARY | 2024-06-02 03:51 | XMS_ITS | Encounter Summary ---
Author Name [facility] [place] Address [address] [place] [address] Care Team Providers Care Poultry Hatchery Supervisor Name Role Phone GAURAV IYER Primary Care [...] Name Patient's Relationship to Policy Cazares BCBS [facility] (WNR) MEDICARE ADVANTAGE [facility] ([facility] Jun 22, 2022 [id number] [phone] OLESYA REDDY PATIENT CIGNA RETIREE ALLIA NT TECH May 22, 2010 [id number] [phone] OLESYA REDDY PATIENT CIGNA MEDICARE SUPPLEMENT MEDICARE SUPPLEMEN RADHIKA MEDIC ARE SUPPL EMENT Jun 22, 2016 PLAN [place] BASIC [id number] OLESYA REDDY PATIENT MEDICARE (WNR) MEDICARE (M) PART A May 22, 2010 PART A [id number] OLESYA REDDY PATIENT MEDICARE (WNR) MEDICARE (M) PART B May 22, 2010 PART B [id number] [phone] OLESYA REDDY PATIENT MEDICARE (WNR) MEDICARE (M) PART A May 22, 2010 PART A [id number] OLESYA REDDY PATIENT MEDICARE (WNR) MEDICARE (M) PART B May 22, 2010 PART B [id number] OLESYA REDDY PATIENT Selected Encounter This section includes the information on record at [place] for the Encounter. Date/Time Encounter Type Encounter Description Reason Provider Source Mar 16, 2024 02:11 PM OFF/OP EST OCTOBER X REQ PHY/QHP PRIMARY CARE/MEDICINE ICD-10-CM Z23 Encounter for immunization KEKE MCNEIL Patsy Terrazas IHE Encounter Template Text not used by [place] Assessments - Encounter Diagnoses This section includes the primary and secondary diagnoses documented for the Encounter. Date/Time Primary/Secondary Diagnosis Diagnosis Name Provider Source Mar 16, 2024 02:12 PM PRIMARY Encounter for immunization FABIEN MCNEILORAPatsy Terrazas [place] ([facility]) Plan of Treatment: Future Appointments (+ 6 months) and Future Tests (+/- 45 days) The Plan of Treatment section includes future care activities for the patient from all [place] treatmentfacilities. This section includes future appointments and future orders which are active, pending or scheduled. Future Appointments This section includes appointments that were scheduled to occur 6 months from the date of the Encounter, up to a maximum of 20 appointments. The data comes from all [place] treatment facilities. Appointment Date/Time Appointment Type Appointme nt Facility Name Apr 19, 2024 01:10 PM AMBULATORY - NONE [facility] Immunizations: All administered on the encounter date This section contains immunizations associated to the Encounter. Immunization Series Date Issued Reaction Comments INFLUENZA, SPLIT VIRUS, TRIVALENT, PF Mar 16 Advance Directives: All historical and current Section Date Range: From patient's date of to the date document was created. This section includes ALL of a patient's completed or amended [place] Advance and Rescinded Directives. The entries below indicate that a directive exists for the patient, but an actual copy is not included with this document. The data comes from all [place] facilities. Date Advance Directives Provider Source Oct 08, 2021 ADVANCE DIRECTIVE DISCUSSION Patsy PINK [facility] Oct 08, 2021 ADVANCE DIRECTIVE KRISTINE PINK [facility] Jun 27, 2011 ADVANCE DIRECTIVE DISCUSSION [facility] Jun 27, 2011 ADVANCE DIRECTIVE KENYA AVILA [facility] Encounter Notes: All associated encounter notes This section contains the clinical notes associated to the Encounter. 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 The patient/caregiver denied any prior severe reaction to this vaccine or its components or a severe allergic reaction, such as anaphylaxis, to any vaccine or any injectable therapy. The patient/caregiver gave verbal consent to receive the vaccine. /brissa/ SELMA MCNEIL LPN LPN Signed: 03/16/2024 14:12 SELMA MCNEIL ([facility])
--- OUTSIDE RECORDS SUMMARY | 2024-06-02 03:51 | XMS_ITS | Encounter Summary ---
Author Name [facility] [place] Organization [facility] [place] Address [address] [place] [address] Care Team Providers Care Metal Bending Machine Operator Name Role Phone GAURAV IYER Primary Care [...] Name Patient's Relationship to Policy Cazares BCBS [facility] (WNR) MEDICARE ADVANTAGE [facility] ([facility]) Jun 22, 2022 [id number] [phone] OLESYA REDDY PATIENT CIGNA RETIREE [employer] May 22, 2010 [id number] OLESYA REDDY PATIENT CIGNA MEDICARE SUPPLEMENT MEDICARE SUPPLEMEN RADHIKA MEDIC ARE SUPPL EMENT Jun 22, 2016 PLAN [place] BASIC [id number] OLESYA REDDY PATIENT MEDICARE (WNR) MEDICARE (M) PART A May 22, 2010 PART A [id number] OLESYA REDDY PATIENT MEDICARE (WNR) MEDICARE (M) PART B May 22, 2010 PART B [id number] OLESYA REDDY PATIENT MEDICARE (WNR) MEDICARE (M) PART A May 22, 2010 PART A [id number] [phone] OLESYA REDDY PATIENT MEDICARE (WNR) MEDICARE (M) PART B May 22, 2010 PART B [id number] [phone] OLESYA REDDY PATIENT Selected Encounter This section includes the information on record at [place] for the Encounter. Date/Time Encounter Type Encounter Description Reason Provider Source Feb 04, 2024 09:41 AM Outpatient Encounter COMMUNITY CARE CONSULT ROCHELLE JAIMES Pradeep Encounter Template Text not used by [place] Plan of Treatment: Future Appointments (+ 6 months) and Future Tests (+/- 45 days) The Plan of Treatment section includes future care activities for the [facility] [place] [facility]. This section includes future appointments and future orders which are active, pending or scheduled. Future Appointments This section includes appointments that were scheduled to occur 6 months from the date of the Encounter, up to a maximum of 20 appointments. The data comes from all [place] treatment facilities. Appointment Date/Time Appointment Type Appointme nt Facility Name Apr 19, 2024 01:10 PM [facility] Active, Pending, and Scheduled Orders This section includes a listing of several types of active, pending, and scheduled orders, including clinic medications orders, diagnostic test orders, procedure orders and consult orders; where the start date of the order is 45 days before the date of the Encounter or 45 days after the date of theEncounter. The data comes from all [facility]. Test Date/Time Test Type Test Details Facility Name Jan 13, 2024 04:15 PM Consult Order COMMUNITY CARE-ORTHO SURG Cons Silvering Applicator's Choice [facility] Social History: Smoking Status (Most current) and Tobacco Use (All prior to encounter date) This section includes the most current, and the historical, smoking and tobacco- related health factors from the [place] facility where the Encounter took place. Current Smoking Status This section includes the most current smoking, or tobacco-related health factor, from the [place] facility where the Encounter took place. Date/Time Current Smoking Status Comment Garett rowley Sep 18, 2023 03:06 PM VA-TOBACCO NEVER USED [facility] Tobacco Use History This section includes a history of the smoking, or tobacco-related health factors, that were collected on or before the date of the Encounter. The data comes from the [place] facility where the Encounter took place. Date/Time Smoking Status/Tobacco Use Comment F acility Mar 04, 2021 12:55 PM VA-TOBACCO NEVER USED [facility] Advance Directives: All historical and current Section Date Range: From patient's date of to the date document was created. This section includes ALL of a patient's completed or amended [place] Advance and Rescinded Directives. The entries below indicate that a directive exists for the patient, but an actual copy is not included with this document. The data comes from all [facility]. Date Advance Directives Provider Source Oct 08, 2021 ADVANCE DIRECTIVE [facility]RISTINE [facility]INK [facility] Oct 08, 2021 ADVANCE DIRECTIVE DISCUSSION Patsy PINK [facility] Jun 27, 2011 ADVANCE DIRECTIVE DISCUSSION KENYA AVILA [facility] Jun 27, 2011 ADVANCE DIRECTIVE KENYA AVILA [facility] Radiology Reports: +/- 30 days of the encounter Radiology Reports For cases when an order for radiology services may have been completed prior to the date of the Encounter, the report list includes the Radiology Reports that were completed up to 30 days before dateof the Encounter. For cases when an order for radiology services may have been completed after the date of the Encounter, the report list also includes the Radiology Reports that were completed up to30 days after date of the Encounter. The data comes from all [place] treatment facilities. Date/Time Radiology Report Provider Source Jan 11, 2024 01:12 PM NON [place] KNEE LEFT: OLESYA REDDY [id number] -[id number] M Ex Date: JAN 11, 2024@13:12 Req Phys: GAURAV IYER Loc: [facility] XRAY GENERAL AM (Req'g Loc Img Loc: OUTSOURCE MAIN X-RAY Service: Unknown (Case [id number] COMPLETE) NON VA KNEE LEFT (RAD Detailed) CPT:26594 Reason for Study: OUTSIDE STUDY Clinical History: OUTSIDE STUDY Report Status: Electronically Filed Date Reported: JAN 13, 2024 Report: This is an outside Imaging study and/or report imported for continuity of patient care. This Imaging study and/or report was not reviewed or verified by a [place] Radiologist. Impression: This is an outside Imaging study and/or report imported for continuity of patient care. This Imaging study and/or report was not reviewed or verified by a [place] Radiologist. Primary Diagnostic Code: VERIFIED BY: / *ELECTRONICALLY FILED* [facility] Encounter Notes: All associated encounter notes This section contains the clinical notes associated to the Encounter. Date/Time Encounter Note(s) Provider Source Feb 04, 2024 09:41 AM NONVA NOTE: LOCAL TITLE: COMMUNITY CARE-CARE COORDINATION PLAN NOTE STANDARD TITLE: NONVA NOTE DATE OF NOTE: FEB 04, 2024@09:41 ENTRY DATE: FEB 04, 2024@09:41:15 AUTHOR: ROCHELLE JAIMES EXP COSIGNER: URGENCY: STATUS: COMPLETED SUBJECT: Community Care Orthopedic Surgery Consult No: [id number] Community Care Consult: Community Care Orthopedic Surgery Consult No: [id number] Chief Complaint: 78 years Male left knee giving out on him, tenderness and swelling to entire knee; Patient Admitted? No Level of Care Coordination Moderate Care Coordination was determined from: Chart Review Facility Community Care Office Contact Care Coordination Point of Contact: Rosanne Springer Services: Basic Care Coordination Services Monitoring and coordination of Rehab/PT Services Direct communication to referring provider Care management, if appropriate Plan: assessed as needing moderate care coordination which may include disease management, health/wellness promotion and education concerning this episode of care. and/or caregiver provided direct contact information for community care department by letter. This letter assists with any follow up needs or additional requests for services. [place] to schedule and attend appt. Records will be reviewed by clinical staff and future needs/updated plan of care determined at that time. Multiple comorbidities noted. Proceed with scheduling Placed as HR-High risk consult Placed on [facility] Same Day Tracker Recent ER visit. /brissa/ Rochelle Jaimes RN, BSN, CCM mini bar attendant Dryer Operator Signed: 02/04/2024 09:43 ROCHELLE JAIMES [facility]
--- OUTSIDE RECORDS SUMMARY | 2024-06-02 03:51 | XMS_ITS | Encounter Summary ---
Author Name [facility] [place] Organization [facility] [place] Address [address] [place] [address] Care Team Providers Care Transcription Specialist Name Role Phone GAURAV IYER Primary Care [...] Name Patient's Relationship to Policy Cazares BCBS [facility] (WNR) MEDICARE ADVANTAGE [facility] ([facility]) Jun 22, 2022 [id number] [phone] OLESYA REDDY PATIENT CIGNA RETIREE [employer] May 22, 2010 [id number] [phone] OLESYA REDDY PATIENT CIGNA MEDICARE SUPPLEMENT MEDICARE SUPPLEMEN RADHIKA MEDIC ARE SUPPL EMENT Jun 22, 2016 PLAN [place] BASIC [id number] OLESYA REDDY PATIENT MEDICARE (WNR) MEDICARE (M) PART A May 22, 2010 PART A [id number] OLESYA REDDY PATIENT MEDICARE (WNR) MEDICARE (M) PART B May 22, 2010 PART B [id number] OLESYA REDDY PATIENT MEDICARE (WNR) MEDICARE (M) PART A May 22, 2010 PART A [id number] [phone] OLESYA REDDY PATIENT MEDICARE (WNR) MEDICARE (M) PART B May 22, 2010 PART B [id number] [phone] OLESYA REDDY PATIENT Selected Encounter This section includes the information on record at [place] for the Encounter. Date/Time Encounter Type Encounter Description Reason Pro vider Source Mar 15, 2024 02:59 PM Outpatient Encounter COMMUNITY CARE CONSULT IHE Encounter Template Text not used by [place] Plan of Treatment: Future Appointments (+ 6 months) and Future Tests (+/- 45 days) The Plan of Treatment section includes future care activities for the patient from all [place] treatmentfacilities. This section includes future appointments and future orders which are active, pending or scheduled. Future Appointments This section includes appointments that were scheduled to occur 6 months from the date of the Encounter, up to a maximum of 20 appointments. The data comes from all [place] treatment facilities. Appointment Date/Time Appointment Type Appointme nt Facility Name Apr 19, 2024 01:10 PM AMBULATORY - NONE [facility] Social History: Smoking Status (Most current) and Tobacco Use (All prior to encounter date) This section includes the most current, and the historical, smoking and tobacco- related health factors from the [place] facility where the Encounter took place. Current Smoking Status This section includes the most current smoking, or tobacco-related health factor, from the [place] facility where the Encounter took place. Date/Time Current Smoking Status Comment Garett itmicky Sep 18, 2023 03:06 PM VA-TOBACCO NEVER USED [facility] Tobacco Use History This section includes a history of the smoking, or tobacco-related health factors, that were collected on or before the date of the Encounter. The data comes from the [place] facility where the Encounter took place. Date/Time Smoking Status/Tobacco Use Comment F acility Mar 04, 2021 12:55 PM [place]-TOBACCO NEVER USED [facility] Advance Directives: All historical and current Section Date Range: From patient's date of to the date document was created. This section includes ALL of a patient's completed or amended [place] Advance and Rescinded Directives. The entries below indicate that a directive exists for the patient, but an actual copy is not included with this document. The data comes from all [place] facilities. Date Advance Directives Provider Source Oct 08, 2021 ADVANCE DIRECTIVE KRISTINE PINK [facility] Oct 08, 2021 ADVANCE DIRECTIVE DISCUSSION Patsy PINK [facility] Jun 27, 2011 ADVANCE DIRECTIVE DISCUSSION [facility] Jun 27, 2011 ADVANCE DIRECTIVE KENYA AVILA [facility] Encounter Notes: All associated encounter notes This section contains the clinical notes associated to the Encounter. Date/Time Encounter Note(s) Provider Source Mar 15, 2024 02:59 PM NONVA NOTE: LOCAL TITLE: COMMUNITY CARE PRE-AUTH LETTER (AUTOPRINT) STANDARD TITLE: NONVA NOTE DATE OF NOTE: MAR 15, 2024@14:59 ENTRY DATE: MAR 15, 2024@14:59:19 AUTHOR: ELVIS RUBIO COSIGNER: URGENCY: STATUS: COMPLETED Feb OLESYA REDDY [address] [place] [address] [address] [place], [place] [address] Dear OLESYA REDDY, Your VA provider has referred you to a provider within the community for care. Your medical care for Orthopedic has been authorized with the community care provider listed below. DO NOT REPORT TO THE [place] [facility] Provider info: Care has been approved for the following vendor: Office name, address, and phone number: [address] [address] PH: [phone] Please contact the identified provider to schedule your community appointment. If you need assistance with this appointment, please call your facility community care office [facility] Office of Community Care at [phone] during the hours of 8:30AM - 3:00PM. Please follow up with your local [facility] community care office once this is scheduled. This step is needed to ensure your referral duration is maximized and the [place] has accurate referral information for billing purposes. Authorization Number: [id number] Referral Issue Date: Jan Expiration Date: Jul (subject to change based on first appointment) If you are unable to schedule this appointment or the appointment is no longer needed, please contact the community provider above for notification/rescheduling and then call the [facility] Office of Community Care at [phone] during the hours of 8:30AM - 3:00PM. If you need additional care/services not mentioned above or your authorization has and additional care is needed, please contact your primary care provider for a new referral. To review all care/service(s) approved under your referral, please go to the following link: [employer] Portal([email or web address]) Co-Payments: If you are required to pay a VA co-payment, you will be billed by the [place] for each authorized visit that you attend. However, you are NOT REQUIRED to make co-payments to a community provider. Thank you for the opportunity to serve you. Sincerely, [place] Community Care ([facility]) /brissa/ ELVIS RUBIO Signed: 03/15/2024 15:00 ELVIS RUBIO [facility]
--- OUTSIDE RECORDS SUMMARY | 2024-06-02 03:53 | XMS_ITS | Encounter Summary ---
Author Name [facility] [place] Organization [facility] [place] [facility] [place] Address [address] [place] [address] Care Team Providers Care Industrial Maintenance Technician Name Role Phone GAURAV IYER Primary Care [...] Name Patient's Relationship to Policy Cazares BCBS [facility] (WNR) MEDICARE ADVANTAGE [facility] Jun 22, 2022 [id number] [phone] OLESYA REDDY PATIENT CIGNA RETIREE [employer] May 22, 2010 [id number] OLESYA REDDY PATIENT CIGNA MEDICARE SUPPLEMENT MEDICARE SUPPLEMEN [place] MEDIC ARE SUPPL EMENT Jun 22, 2016 PLAN [place] BASIC [id number] OLESYA REDDY PATIENT MEDICARE (WNR) MEDICARE (M) PART A May 22, 2010 PART A [id number] OLESYA REDDY PATIENT MEDICARE (WNR) MEDICARE (M) PART B May 22, 2010 PART B [id number] OLESYA REDDY PATIENT MEDICARE (WNR) MEDICARE (M) PART A May 22, 2010 PART A [id number] [phone] OLESYA REDDY PATIENT MEDICARE (WNR) MEDICARE (M) PART B May 22, 2010 PART B [id number] [phone] OLESYA REDDY PATIENT Selected Encounter This section includes the information on record at [place] for the Encounter. 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 Date/Time Primary/Secondary Diagnosis Diagnosis Name Provider Source Sep 21, 2023 02:13 PM PRIMARY Carcinoma in situ of prostate JAYLONGAURAV [facility] Sep 21, 2023 02:13 PM SECONDARY Calculus of kidney ANGIE IYERD [facility] Sep 21, 2023 02:13 PM SECONDARY Essential (primary) hypertension JAYLONGAURAV [facility] Sep 21, 2023 02:13 PM SECONDARY Hyperlipidemia, unspecified JAYLON,GAURAV [facility] Sep 21, 2023 02:13 PM SECONDARY Other male erectile dysfunction JAYLONGAURAV [facility] Plan of Treatment: Future Appointments (+ 6 months) and Future Tests (+/- 45 days) The Plan of Treatment section includes future care activities for the patient from all [place] treatmentfacilities. This section includes future appointments and future orders which are active, pending or scheduled. Future Appointments This section includes appointments that were scheduled to occur 6 months from the date of the Encounter, up to a maximum of 20 appointments. The data comes from all [place] treatment facilities. Appointment Date/Time Appointment Type Appointme nt Facility Name Jan 13, 2024 08:11 AM AMBULATORY - [facility] Lab Results: +/- 30 days of the encounter This section includes the Chemistry and Hematology Lab Results on record with [place] for the patient. Radiology Reports and Pathology Reports are provided separately, in subsequent sections. Lab Results This section contains the Chemistry/Hematology Results that were resulted 30 days before or 30 daysafter the date of the Encounter. Date/Time Source Result Type Result - Unit Interpretation Reference Range Comment Sep 18, 2023 09:46 AM [facility] HEMOGLOBIN A1C Specimen Type: BLOOD Comment: Values [...] Aug 05, 2023 05:03 PM Reporting Lab: [facility] [id number] Performing Lab: [facility] [id number] HEMOGLOBIN A1C 5.3 4.0-6.0 Sep 18, 2023 09:46 AM [facility] PSA Specimen Type: SERUM No comment entered. Ordering Provider: GAURAV IYER Report Released Date/Time: Aug 05, 2023 05:03 PM Reporting Lab: [facility] [address] Performing Lab: [facility] [address] PSA <0.01 ng/mL <4.00 Sep 18, 2023 09:46 AM [facility] TSH W/REFLEX TO FREE T4 Specimen Type: PLASMA No comment entered. Ordering Provider: GAURAV IYER Report Released Date/Time: Aug 05, 2023 05:03 PM Reporting Lab: [facility] [id number] Performing Lab: [facility] [address] TSH 1.61 u[IU]/mL 0.35-4.94 Sep 18, 2023 09:46 AM [facility] LIPID PANEL,NON-FASTING Specimen Type: PLASMA No comment entered. Ordering Provider: GAURAV IYER Report Released Date/Time: Aug 05, 2023 05:03 PM Reporting Lab: [facility] [address] Performing Lab: [facility] [address] CHOLESTEROL 174 mg/dL <199 .HDL 46 mg/dL >40 LDL CALCULATION 96 mg/dL <99 VLDL CALCULATION 32 mg/dL H <29 NON HDL CHOLESTEROL 128 mg/dL <129 TRIG(NON FASTING) 162 mg/dL H <149 Sep 18, 2023 09:[address] [facility] COMPREHENSIVE METABOLIC PANEL+MG Specimen Type: PLASMA No comment entered. Ordering Provider: GAURAV IYER Report Released Date/Time: Aug 05, 2023 05:03 PM Reporting Lab: [facility] [phone] Performing Lab: [facility] [address] CREATININE 1.0 mg/dL 0.7-1.2 UREA NITROGEN 19 [...] 25 U/L <34 .CREAT EGFR(CKD-EPI) 77 >60 Vital Signs: All taken on the encounter date This section contains inpatient and outpatient Vital Signs collected on the date of the Encounter. Date/Time Temperature Pulse Blood Pressure Respiratory Rate SP02 Pain Height Weight Body Mass Index Source Sep 21, 2023 01:43 PM 151/97 [facility] Sep 21, 2023 01:38 PM 97.4 64 162/96 17 96 0 68.5 206.2 31 [facility] Social History: Smoking Status (Most current) and Tobacco Use (All prior to encounter date) This section includes the most current, and the historical, smoking and tobacco- related health factors from the [place] facility where the Encounter took place. Current Smoking Status This section includes the most current smoking, or tobacco-related health factor, from the [place] facility where the Encounter took place. Date/Time Current Smoking Status Comment Garett rowley Apr 30, 2022 01:00 PM VA-TOBACCO NEVER USED [facility] Tobacco Use History This section includes a history of the smoking, or tobacco-related health factors, that were collected on or before the date of the Encounter. The data comes from the [place] facility where the Encounter took place. Date/Time Smoking Status/Tobacco Use Comment F acility Sep 27, 2018 11:23 AM VA-TOBACCO NEVER USED [facility] Oct 14, 2017 09:48 AM 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CCO USER [facility] November 03, 2016 07:58 AM 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CCO USER [facility] October 23, 2015 02:00 PM 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CCO USER [facility] October 25, 2014 10:45 AM 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CCO USER [facility] Sep 28, 2013 10:25 AM 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CCO USER [facility] Aug 16, 2012 09:37 AM 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CCO USER [facility] Advance Directives: All historical and current Section Date Range: From patient's date of to the date document was created. This section includes ALL of a patient's completed or amended [place] Advance and Rescinded Directives. The entries below indicate that a directive exists for the patient, but an actual copy is not included with this document. The data comes from all [place] facilities. Date Advance Directives Provider Source Oct 08, 2021 ADVANCE DIRECTIVE KRISTINE PINK [facility] Oct 08, 2021 ADVANCE DIRECTIVE DISCUSSION Patsy PINK [facility] Jun 27, 2011 ADVANCE DIRECTIVE DISCUSSION KENYA AVILA [facility] Jun 27, 2011 ADVANCE DIRECTIVE KENYA AVILA [facility] Encounter Notes: All associated encounter notes This section contains the clinical notes associated to the Encounter. Date/Time Encounter Note(s) Provider Source Sep 21, 2023 01:50 PM INTERNAL MEDICINE NOTE: LOCAL TITLE: MEDICINE CLINIC NOTE STANDARD TITLE: INTERNAL MEDICINE NOTE DATE OF NOTE: SEP 21, 2023@13:50 ENTRY DATE: SEP 21, 2023@13:50:34 AUTHOR: GAURAV IYER EXP COSIGNER: URGENCY: STATUS: COMPLETED Nurse's notes reviewed. Chief complaint: Comanage care HPI/ROS: 78 years old comanaged with Amarilis López/ [facility] Still at [facility] Known h/o prostate cancer, HTN, HL, osteoarthritis, ED No new health issues or medications. 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) Kidney stone ([facility] 25710847) Prostate cancer ([facility] 581353056) Inguinal hernia, without mention of obstruction or gangrene (ICD-9-CM 550.90) Osteoarthritis ([facility] 597775740) Pain in joint involving shoulder region (ICD-9-CM 719.41) F5 (Coagulation factor V) (eg, HereditarBenign essential hypertension ([facility] 1527667) Hyperlipidemia ([facility] 29787081) History of male erectile disorder ([facility] 334859987) Partner relationship problem ([facility] 600481Swbvyiwj to potentially hazardous substance ([facility] [id number]) Allergies: BEE STINGS (Aug 16, 2012) Active and Recently Outpatient Medications (including Supplies): Active Outpatient Medications Status 1) ATORVASTATIN CALCIUM 20MG TAB TAKE ONE TABLET BY ACTIVE MOUTH AT BEDTIME (FULL TABLET DOSE) FOR CHOLESTEROL 2) EPINEPHRINE (EQV-EPI-PEN) 0.3MG/0.3ML INJECT 1 PEN ACTIVE DIRECTED NEEDED FOR ALLERGIC REACTION 3) HCTZ 12.5/LISINOPRIL 20MG TAB TAKE 1 TABLET BY MOUTH ACTIVE EVERY DAY 4) SILDENAFIL CITRATE 100MG TAB TAKE ONE TABLET BY MOUTH ACTIVE NEEDED 1 HOUR BEFORE ANTICIPATED SEXUAL ACTIVITY Active Non-VA Medications Status 1) Non-VA ASCORBIC ACID 500MG TAB 500 MG MOUTH EVERY DAY ACTIVE 2) Non-VA ASPIRIN 81MG EC TAB 81 MG MOUTH ACTIVE 3) Non-VA GLUCOSAMINE CAP/TAB ACTIVE 4) Non-VA MARINE LIPID (FISH OIL) CAP,ORAL 3000GRAM ACTIVE MOUTH 5) Non-VA MULTIVITAMIN CAP/TAB 1 TABLET MOUTH EVERY DAY ACTIVE 10 Total Medications Family/Social History: () Not applicable to today's visit. EXAM: VS: Temp: 97.4 F [36.3 C] (09/21/2023 13:38) BP: 151/97 (09/21/2023 13:43) Pulse:64 (09/21/2023 13:38) Resp: 17 (09/21/2023 13:38) Pain: 0 (09/21/2023 13:38) Weight: WEIGHTS IN LAST 6 MONTHS: 206.2 (SEP 21, 2023@13:38:43) General Appearance:NAD Mental Status:Alert and oriented Neck:No JVD Cardiac:RRR No murmur JVP: Lungs:Clear No wheezing Abdomen:Soft NT Extremities:No edema Data/Labs: The OBJECT HEMOGLOBIN Z3A--LYY is INACTIVE...Contact IRM. Lipids: CHOLESTEROL 174 (09/18/23) HDL 46 (09/18/23) LDL CALCULATION 96 (09/18/23) LDL Measured: TRIGLYCERIDE____ SMA-7: SODIUM 138 (09/18/23) POTASSIUM 4.0 (09/18/23) CHLORIDE 102 (09/18/23) CO2 26 (09/18/23) UREA NITROGEN 19 (09/18/23) CREATININE 1.0 (09/18/23) GLUCOSE 109 H (09/18/23) LFTs: SGOT 25 (09/18/23) SGPT 27 (09/18/23) Assessment and Plan: 78 years old here for re establish care comanaged care - LMD Dr Ang [[facility] clinic . Also followed by multiple subspecialists in community HTN currently on lisinopril /hctz BP borderline But home BP reported optimal Feels his home monitor us accurate. He will monitor home BP and CB if elevated. H/o Nephrolithisis inital episode 05/2006 requiring cystoscopic removal. Then had another spell 6 mm stone which required removal again by Urogoist at [facility] Had another episode in 07/2016 when sponatneously passed 3 mm stone. He seen Urologist at [facility] . Another ureteroscopy in december [address] Quiroz at [facility] in [facility] removed a 10 mm stone. Most recent intervention in October 2020 required Cystourethroscopy with retrograde pyelogram, holmium laser lithotripsy of urethral calculus with stent on left. He stays well hydrated. Urine and stone analysis was done through Urologist also H/o Bee sting allergy Dx after allergy testing in 1998.Recieved desensitization through [facility] in [id number]. Carries Epipen. HL Now on atorvastatin Tolerating well. Recent LDL optimal CaP s/p Radical prostatectomy in 11/2004- Dr Palmer of [facility]. His PSA stable [low] Seen urology in community. PSA < 0.01. 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 He has seen orthopedics at [place]. Then seen Dr Viramontes at [facility] for second opinion. 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 TKA in 2009 by Ezequiel Manning in [place], [place] Doing well. No recent knee injection H/o Factor V leiden with sister and Niece also has Hetrozygous Factor V Leiden defiency. 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 F/u in 04/2018 No polyps removed but advised f/u after 5 years.He declined f/u /brissa/ GAURAV IYER MD STAFF PHYSICAN Signed: 09/21/2023 14:13 GAURAV IYER [facility] Sep 21, 2023 01:40 PM PRIMARY CARE NURSI MALICK NOTE: LOCAL TITLE: [facility] NURSING PROGRESS NOTE STANDARD TITLE: PRIMARY CARE NURSING NOTE DATE OF NOTE: SEP 21, 2023@13:40 ENTRY DATE: SEP 21, 2023@13:41 AUTHOR: JERRY,HIEN R EXP COSIGNER: URGENCY: STATUS: COMPLETED TYPE OF VISIT: Appointment Check In Type of appointment: In-person appointment REASON FOR VISIT: Annual. Comanged [facility]. ALLERGIES: BEE STINGS (Aug 16, 2012) VITAL SIGNS: Blood Pressure: 162/96 (09/21/2023 13:38) Pulse: 64 (09/21/2023 13:38) Respiration: 17 (09/21/2023 13:38) Temperature: 97.4 F [36.3 C] (09/21/2023 13:38) Weight: 206.2 lb [93.53 kg] (09/21/2023:38) Height: 68.5 in [174.0 cm] (09/21/2023:) BMI: 31.0 O2 Sat: 96% (09/21/2023:38) Pain: 0 (09/21/2023:) PAIN SCREEN: Patient is not having significant pain that they wish to discuss with their provider today. MEDICATION Active Outpatient Medications (including Supplies): ATORVASTATIN CALCIUM 20MG TAB TAKE ONE TABLET BY MOUTH AT ACTIVE BEDTIME (FULL TABLET DOSE) FOR CHOLESTEROL EPINEPHRINE (EQV-EPI-PEN) 0.3MG/0.3ML INJECT 1 PEN ACTIVE DIRECTED NEEDED FOR ALLERGIC REACTION HCTZ 12.5/LISINOPRIL 20MG TAB TAKE 1 TABLET BY MOUTH EVERY ACTIVE DAY SILDENAFIL CITRATE 100MG TAB TAKE ONE TABLET BY MOUTH ACTIVE NEEDED 1 HOUR BEFORE ANTICIPATED SEXUAL ACTIVITY Non-VA ASCORBIC ACID 500MG TAB 500 MG MOUTH EVERY DAY ACTIVE Non-VA ASPIRIN 81MG EC TAB 81 MG MOUTH ACTIVE Non-VA GLUCOSAMINE CAP/TAB ACTIVE Non-VA MARINE LIPID (FISH OIL) CAP,ORAL 3000GRAM MOUTH ACTIVE Non-VA MULTIVITAMIN CAP/TAB 1 TABLET MOUTH EVERY DAY ACTIVE Non-VA ZZINV-PAXLOVID [id number] DAILY PKT ACCORDING ACTIVE TO DIRECTIONS IN PACKAGE MOUTH TWICE A DAY Over the Counter/Herbal Medications: The patient states that they take some outside medications and/or herbals. Suicide Screen: C-SSRS Screening [place] Suicide Severity Rating Scale (C-SSRS) screener 1. Over the past month, have you wished you were or wished you could go to sleep and not wake up? No 2. Over the past month, have you had any actual thoughts of killing yourself? No 3. Over the past month, have you been thinking about how you might do this? Response not required due to responses to other questions. 4. Over the past month, have you had these thoughts and had some intention of acting on them? Response not required due to responses to other questions. 5. Over the past month, have you started to work out or worked out the details of how to kill yourself? Response not required due to responses to other questions. 6. If yes, at any time in the past month did you intend to carry out this plan? Response not required due to responses to other questions. 7. In your lifetime, have you ever done anything, started to do anything, or prepared to do anything to end your life (for example, collected pills, obtained a gun, gave away valuables, went to the roof but didn't jump)? No 8. If YES, was this within the past 3 months? Response not required due to responses to other questions. Depression Screening: Perform PHQ-2 A PHQ-2 screen was performed. The score was 0 which is a negative screen for depression. Over the past two weeks, how often have you been bothered by the following problems? 1. Little interest or pleasure in doing things Not at all 2. Feeling down, depressed, or hopeless Not at all Herpes Zoster (Shingles) Vaccine: The patient declines to receive the recommended dose of zoster (shingles) vaccine. Immunization: ZOSTER RECOMBINANT Refusal Reason: PATIENT DECISION Patient refuses all immunization(s) in the ZOSTER group Date Documented: 09/21/23 13:42 Pneumococcal Conjugate Vaccine (PCV15/PCV20): Refuses PCV vaccine Immunization: PNEUMOCOCCAL CONJUGATE, UNSPECIFIED FORMULATION Refusal Reason: PATIENT DECISION Patient refuses all immunization(s) in the PneumoPCV group Date Documented: 09/21/23 13:42 /brissa/ HIEN EDWARDS LPN LICENSED PRACTICAL NURSE Signed: 09/21/2023 13:42 HIEN EDWARDS OC
[2024-06-08] VITALS (23 sets, daily range): BP systolic 71–167; BP diastolic 51–102; PULSE 55–89; RESP 12–20; TEMP 35.5–37.1; O2SAT 90–98; BMI 28.8
--- OUTSIDE RECORDS SUMMARY | 2024-06-08 10:59 | XMS_ITS | Encounter Summary ---
Author Name [facility] Organization [facility] [place] Address [address] [place] [address] Care Team Providers Care Mounting Inspector Name Role Phone GAURAV IYER Primary Care [...] Name Patient's Relationship to Policy Cazares BCBS [facility] (WNR) MEDICARE ADVANTAGE [facility] Jun 22, 2022 [id number] [phone] OLESYA REDDY PATIENT CIGNA RETIREE [employer] May 22, 2010 [id number] [phone] OLESYA REDDY PATIENT CIGNA MEDICARE SUPPLEMENT MEDICARE SUPPLEMEN RADHIKA MEDIC ARE SUPPL EMENT Jun 22, 2016 PLAN [place] BASIC [id number] OLESYA REDDY PATIENT MEDICARE (WNR) MEDICARE (M) PART B May 22, 2010 PART B [id number] OLESYA REDDY PATIENT MEDICARE (WNR) MEDICARE (M) PART A May 22, 2010 PART A [id number] OLESYA REDDY PATIENT MEDICARE (WNR) MEDICARE (M) PART A May 22, 2010 PART A [id number] OLESYA REDDY PATIENT MEDICARE (WNR) MEDICARE (M) PART B May 22, 2010 PART B [id number] [phone] OLESYA REDDY PATIENT Selected Encounter This section includes the information on record at MD for the Encounter. Date/Time Encounter Type Encounter Description Reason Provider Source Feb 04, 2024 09:41 AM Outpatient Encounter COMMUNITY CARE CONSULT ROCHELLE JAIMES Pradeep Encounter Template Text not used by MD Plan of Treatment: Future Appointments (+ 6 months) and Future Tests (+/- 45 days) The Plan of Treatment section includes future care activities for the [facility] This section includes future appointments and future orders which are active, pending or scheduled. Future Appointments This section includes appointments that were scheduled to occur 6 months from the date of the Encounter, up to a maximum of 20 appointments. The data comes from all MD treatment facilities. Appointment Date/Time Appointment Type Appointme nt Facility Name Apr 19, 2024 01:10 PM [facility] Active, Pending, and Scheduled Orders This section includes a listing of several types of active, pending, and scheduled orders, including clinic medications orders, diagnostic test orders, procedure orders and consult orders; where the start date of the order is 45 days before the date of the Encounter or 45 days after the date of theEncounter. The data comes from all [facility]. Test Date/Time Test Type Test Details Facility Name Jan 13, 2024 04:15 PM Consult Order COMMUNITY CARE-ORTHO SURG Cons Divorce Attorney's Choice [facility] Social History: Smoking Status (Most current) and Tobacco Use (All prior to encounter date) This section includes the most current, and the historical, smoking and tobacco- related health factors from the MD facility where the Encounter took place. Current Smoking Status This section includes the most current smoking, or tobacco-related health factor, from the MD facility where the Encounter took place. Date/Time Current Smoking Status Comment Garett rowley Sep 18, 2023 03:06 PM VA-TOBACCO NEVER USED [facility] Tobacco Use History This section includes a history of the smoking, or tobacco-related health factors, that were collected on or before the date of the Encounter. The data comes from the MD facility where the Encounter took place. Date/Time Smoking Status/Tobacco Use Comment F acility Mar 04, 2021 12:55 PM VA-TOBACCO NEVER USED [facility] Advance Directives: All historical and current Section Date Range: From patient's date of to the date document was created. This section includes ALL of a patient's completed or amended MD Advance and Rescinded Directives. The entries below indicate that a directive exists for the patient, but an actual copy is not included with this document. The data comes from all [facility]. Date Advance Directives Provider Source Oct 08, 2021 ADVANCE DIRECTIVE KRISTINE PINK [facility] Oct 08, 2021 ADVANCE DIRECTIVE DISCUSSION Patsy PINK [facility] Jun 27, 2011 ADVANCE DIRECTIVE DISCUSSION KENYA AVILA [facility] Jun 27, 2011 ADVANCE DIRECTIVE KENYA AVILA [facility] Radiology Reports: +/- 30 days of the [...] the Encounter. The data comes from all MD treatment facilities. Date/Time Radiology Report Provider Source Jan 11, 2024 01:12 PM NON MD KNEE LEFT: OLESYA REDDY [id number] M Ex Date: JAN 11, 2024@13:12 Req Phys: GAURAV IYER Loc: [facility] XRAY GENERAL AM (Req'g Loc Img Loc: OUTSOURCE MAIN X-RAY Service: Unknown (Case [id number] COMPLETE) NON VA KNEE LEFT (RAD Detailed) CPT:02130 Reason for Study: OUTSIDE STUDY Clinical History: OUTSIDE STUDY Report Status: Electronically Filed Date Reported: JAN 13, 2024 Report: This is an outside Imaging study and/or report imported for continuity of patient care. This Imaging study and/or report was not reviewed or verified by a MD Radiologist. Impression: This is an outside Imaging study and/or report imported for continuity of patient care. This Imaging study and/or report was not reviewed or verified by a MD Radiologist. Primary Diagnostic Code: VERIFIED BY: / *ELECTRONICALLY FILED* [facility] Encounter Notes: All associated encounter [...] SUBJECT: Community Care Orthopedic Surgery Consult No: [id number] Community Care Consult: Community Care Orthopedic Surgery Consult No: [id number] Chief Complaint: 78 years Male left knee [...] up needs or additional requests for services. [place] to schedule and attend appt. Records will be reviewed by clinical staff and future needs/updated plan of care determined at that time. Multiple comorbidities noted. Proceed with scheduling Placed as HR-High risk consult Placed on [facility] Same Day Tracker Recent ER visit. /brissa/ Rochelle Jaimes RN, BSN, CCM post doc fellowship Operations And Maintenance Technican Signed: 02/04/2024 09:43 ROCHELLE JAIMES [facility]
--- OUTSIDE RECORDS SUMMARY | 2024-06-08 10:59 | XMS_ITS | Encounter Summary ---
Author Name [facility] ([place]) Organization [facility] [place] Address [address] [place] [address] Care Team Providers Care Crusher Tender Name Role Phone GAURAV IYER Primary Care [...] Name Patient's Relationship to Policy Cazares BCBS [facility] (WN) MEDICARE ADVANTAGE [facility] ([facility]) Jun 22, 2022 [id number] [phone] OLESYA REDDY PATIENT CIGNA RETIREE ALLIA [employer] May 22, 2010 [id number] OLESYA REDDY PATIENT CIGNA MEDICARE SUPPLEMENT MEDICARE SUPPLEMEN RADHIKA MEDIC ARE SUPPL EMENT Jun 22, 2016 [place]AN [place] BASIC [id number] OLESYA REDDY PATIENT MEDICARE (WNR) MEDICARE (M) PART B May 22, 2010 PART B [id number] OLESYA REDDY PATIENT MEDICARE (WN) MEDICARE (M) PART A May 22, 2010 PART A [id number] OLESYA REDDY PATIENT MEDICARE (WNR) MEDICARE (M) PART A May 22, 2010 PART A [id number] OLESYA REDDY PATIENT MEDICARE (WNR) MEDICARE (M) PART B May 22, 2010 PART B [id number] [phone] OLESYA REDDY PATIENT Selected Encounter This section includes the information on record at MD for the Encounter. Date/Time Encounter Type Encounter Description Reason Pro vider Source Aug 05, 2023 09:16 AM Outpatient Encounter TELEPHONE TRIAGE IHE Encounter Template Text not used by MD Plan of Treatment: Future Appointments (+ 6 months) and Future Tests (+/- 45 days) The Plan of Treatment section includes future care activities for the patient from all MD treatmentfacilities. This section includes future appointments and [...] 2024 08:11 AM AMBULATORY - NONE [facility] Social History: Smoking Status (Most current) and [...] this document. The data comes from all MD facilities. Date Advance Directives Provider Source Oct 08, 2021 ADVANCE DIRECTIVE KRISTINE PINK [facility] Oct 08, 2021 ADVANCE DIRECTIVE DISCUSSION Patsy PINK [facility] Jun 27, 2011 ADVANCE DIRECTIVE DISCUSSION KENYA AVILA [facility] Jun 27, 2011 ADVANCE DIRECTIVE KENYA AVILA [facility] Encounter Notes: All associated encounter notes This section contains the clinical notes associated to the Encounter. Date/Time Encounter Note(s) Provider Source Aug 05, 2023 05:04 PM ADDENDUM: LOCAL TITLE: Addendum STANDARD TITLE: ADDENDUM DATE OF NOTE: AUG 05, 2023@17:04:03 ENTRY DATE: AUG 05, 2023@17:04:03 AUTHOR: GAURAV IYER EXP COSIGNER: URGENCY: STATUS: COMPLETED annual' labs ordered as requested [place] interested in getting labs PRIOR to his visit on 09/21/23 Will request PACT MSA to please reach out to and schedule a lab appointment. /brissa/ GAURAV IYER MD STAFF PHYSICAN Signed: 08/05/2023 17:05 Receipt Acknowledged By: 08/06/2023 12:10 /brissa/ DIVINA DUKE MSA --- Original Document --- 08/05/23 CCC: SCHEDULING ADMINISTRATION: Primary Care Call Center Primary Care Provider Call. Please contact at the following number:[phone] called in to schedule annual and requested to have labs prior to appt. Notified the that no lab orders were in at this time but I would put in a note for him requesting them. can be reached at the phone number above. This note was created by a V23 [facility] Call Center AMSA/LUIS. Please do not alert this automatic typewriter inspector by adding as a signer for future communications. Alerts are not monitored by this user, please reach out to [facility] Leadership instead if indicated. /brissa/ JOSE CARMONA 23 [facility] AMSA Signed: 08/05/2023 09:18 Receipt Acknowledged By: [...] Provider Call. Please contact at the following number:[phone] called in to schedule annual and requested to have labs prior to appt. Notified the that no lab orders were in at this time but I would put in a note for him requesting them. [place] can be reached at the phone number above. This note was created by a 3 [facility] Call Center ELIAS/LUIS. Please do not alert this automatic typewriter inspector by adding as a signer for future communications. Alerts are not monitored by this user, please reach out to [facility] Leadership instead if indicated. /es/ JOSE CARMONA 23 [facility] ELIAS Signed: 08/05/2023 09:18 Receipt Acknowledged By: 08/05/2023 16:59 /brissa/ EPHRAIM HURD REGISTERED NURSE 08/05/2023 ADDENDUM STATUS: UNSIGNED You may not VIEW this UNSIGNED Addendum. [facility] Aug 05, 2023 09:16 AM ADMINISTRATIVE NOT E: LOCAL TITLE: CCC: SCHEDULING ADMINISTRATION STANDARD TITLE: ADMINISTRATIVE NOTE DATE OF NOTE: AUG 05, 2023@09:16 ENTRY DATE: AUG 05, 2023@09:16:13 AUTHOR: JOSE BUCKLEY EXP COSIGNER: URGENCY: STATUS: COMPLETED CCC: SCHEDULING ADMINISTRATION Has ADDENDA Primary Care Call Center Primary Care Provider Call. Please contact at the following number:[phone] [place] called in to schedule annual and requested to have labs prior to appt. Notified the that no lab orders were in at this time but I would put in a note for him requesting them. can be reached at the phone number above. This note was created by a V23 [facility] AMSA/LUIS. Please do not alert this automatic typewriter inspector by adding as a signer for future communications. Alerts are not monitored by this user, please reach out to [facility] Leadership instead if indicated. /phoenix CARMONA 23 [facility] AMSA Signed: 08/05/2023 09:18 Receipt Acknowledged By: 08/05/2023 16:59 /brissa/ EPHRAIM HURD REGISTERED NURSE 08/05/2023 ADDENDUM STATUS: COMPLETED will alert pcp of request. /phoneix HURD REGISTERED NURSE Signed: 08/05/2023 17:00 Receipt Acknowledged By: 08/05/2023 17:03 /brissa/ GAURAV IYER MD STAFF PHYSICAN 08/05/2023 ADDENDUM STATUS: COMPLETED annual' labs ordered as requested [place] interested in getting labs PRIOR to his visit on 09/21/23 Will request PACT MSA to please reach out to and schedule a lab appointment. /phoenix IYER MD STAFF PHYSICWENDY Signed: 08/05/2023 17:05 Receipt Acknowledged By: * AWAITING SIGNATURE * DIVINA EDWARDS DAJEE Z [facility]
--- OUTSIDE RECORDS SUMMARY | 2024-06-08 10:59 | XMS_ITS | Encounter Summary ---
Author Name [facility] [facility] [place] Organization [facility] [place] Address [address] [place] [address] Care Team Providers Care Asset Protection Agent Name Role Phone GAURAV IYER Primary Care [...] Name Patient's Relationship to Policy Cazares BCBS [facility] (WNR) MEDICARE ADVANTAGE [facility] ([facility]) Jun 22, 2022 [id number] [phone] OLESYA REDDY PATIENT CIGNA RETIREE [email or web address] May 22, 2010 [id number] OLESYA REDDY PATIENT CIGNA MEDICARE SUPPLEMENT MEDICARE SUPPLEMEN RADHIKA MEDIC ARE SUPPL EMENT Jun 22, 2016 PLAN [place] BASIC [id number] OLESYA REDDY PATIENT MEDICARE (WNR) MEDICARE (M) PART A May 22, 2010 PART A [id number] OLESYA REDDY PATIENT MEDICARE (WNR) MEDICARE (M) PART B May 22, 2010 PART B [id number] OLESYA REDDY PATIENT MEDICARE (WNR) MEDICARE (M) PART A May 22, 2010 PART A [id number] OLESYA REDDY PATIENT MEDICARE (WNR) MEDICARE (M) PART B May 22, 2010 PART B [id number] OLESYA REDDY PATIENT Selected Encounter This section includes the information on record at SD for the Encounter. Date/Time Encounter Type Encounter Description Reason Provider Source Sep 18, 2023 03:06 PM Outpatient Encounter PRIMARY CARE/MEDICINE CORI JACQUES Pradeep Encounter Template Text not used by SD Plan of Treatment: Future Appointments (+ 6 months) and Future Tests (+/- 45 days) The Plan of Treatment section includes future care activities for the patient from all [place] treatmentfacilities. This section includes future appointments and future orders which are active, pending or scheduled. Future Appointments This section includes appointments that were scheduled to occur 6 months from the date of the Encounter, up to a maximum of 20 appointments. The data comes from all [place] treatment facilities. Appointment Date/Time Appointment Type Appointme nt Facility Name Sep 21, 2023 01:30 PM [facility] Jan 13, 2024 08:11 AM AMBULATORY - NONE [place] [facility] Lab Results: +/- 30 days of the encounter This section includes the Chemistry and Hematology Lab Results on record with SD for the patient. Radiology Reports and Pathology Reports are provided separately, in subsequent sections. Lab Results This section contains the Chemistry/Hematology Results that were resulted 30 days before or 30 daysafter the date of the Encounter. Date/Time Source Result Type Result - Unit Interpretation Reference Range Comment Sep 18, 2023 09:46 AM [facility] PSA Specimen Type: SERUM No comment entered. Ordering Provider: GAURAV IYER Report Released Date/Time: Aug 05, 2023 05:03 PM Reporting Lab: [facility] [phone] Performing Lab: [facility] [id number] PSA <0.01 ng/mL <4.00 Sep 18, 2023 09:46 AM [facility] HEMOGLOBIN A1C Specimen Type: BLOOD Comment: Values [...] Aug 05, 2023 05:03 PM Reporting Lab: [facility] [id number] Performing Lab: [facility] [phone] HEMOGLOBIN A1C 5.3 4.0-6.0 Sep 18, 2023 09:46 AM [facility] TSH W/REFLEX TO FREE T4 Specimen Type: PLASMA No comment entered. Ordering Provider: GAURAV IYER Report Released Date/Time: Aug 05, 2023 05:03 PM Reporting Lab: [facility] [id number] Performing Lab: [facility] [phone] TSH 1.61 u[IU]/mL 0.35-4.94 Sep 18, 2023 09:46 AM [facility] LIPID PANEL,NON-FASTING Specimen Type: PLASMA No comment entered. Ordering Provider: GAURAV IYER Report Released Date/Time: Aug 05, 2023 05:03 PM Reporting Lab: [facility] [id number] Performing Lab: [facility] [address] CHOLESTEROL 174 mg/dL <199 .HDL 46 mg/dL >40 LDL CALCULATION 96 mg/dL <99 VLDL CALCULATION 32 mg/dL H <29 NON HDL CHOLESTEROL 128 mg/dL <129 TRIG(NON FASTING) 162 mg/dL H <149 Sep 18, 2023 09:46 AM [facility] COMPREHENSIVE METABOLIC PANEL+MG Specimen Type: PLASMA No comment entered. Ordering Provider: GAURAV IYER Report Released Date/Time: Aug 05, 2023 05:03 PM Reporting Lab: [facility] [address] Performing Lab: [facility] [address] CREATININE 1.0 mg/dL 0.7-1.2 UREA NITROGEN 19 [...] and tobacco- related health factors from the [place] facility where the Encounter took place. Current Smoking Status This section includes the most current smoking, or tobacco-related health factor, from the [place] facility where the Encounter took place. Date/Time Current Smoking Status Comment Facil ity Sep 18, 2023 03:06 PM SD-TOBACCO NEVER USED [facility] Tobacco Use History This section includes a history of the smoking, or tobacco-related health factors, that were collected on or before the date of the Encounter. The data comes from the SD facility where the Encounter took place. Date/Time Smoking Status/Tobacco Use Comment F krystal Mar 04, 2021 12:55 PM SD-TOBACCO NEVER USED [facility] Advance Directives: All historical and current Section Date Range: From patient's date of to the date document was created. This section includes ALL of a patient's completed or amended [place] Advance and Rescinded Directives. The entries below indicate that a directive exists for the patient, but an actual copy is not included with this document. The data comes from all [place] facilities. Date Advance Directives Provider Source Oct 08, 2021 ADVANCE DIRECTIVE KRISTINE PINK [facility] Oct 08, 2021 ADVANCE DIRECTIVE DISCUSSION Patsy PINK [facility] Jun 27, 2011 ADVANCE DIRECTIVE DISCUSSION [facility] Jun 27, 2011 ADVANCE DIRECTIVE KENYA AVILA [facility] Encounter Notes: All associated encounter notes [...] treatment. 2. Complete a durable power of estate attorney for health care. 3. Complete a living will. ADVANCE DIRECTIVE SCREENING: Does patient have an Advance Directive? The patient has an Advance Directive. Does the patient wish to make any changes or revoke their current Advance Directive? No changes requested at this time. /brissa/ CORI JACQUES LPN HAMMERER HELPER Signed: 09/18/2023 15:12 [facility]I [facility] Sep 18, 2023 03:06 PM PRIMARY [...] due to responses to other questions. 5. [place] numb or detached from people, activities, or your surroundings? Response not required due to responses to other questions. 6. [place] guilty or unable to stop blaming yourself [...] pressure ulcers, or a wound from a medical services coordinator or Patient is bed-confined or a wheelchair-user or Patient requires assistance to transfer/change position No, Skin Screen is Negative Home Abuse/Violence Screen Is your home free of abuse and violence? Yes MOVE! Program Screen Body Mass Index (BMI)= 29.7 [place]: Collection DT Specimen Test Name Result Units Ref Range 04/30/2022 13:42 BLOOD !! HEMOGLOBIN A1C 5.0 % 4.0 - 6.0 !! Indicates COMMENTS AVAILABLE...Refer to Interim Lab Report. [place] Hgb A1C: No data available [place] Hgb A1C: No data available Point of Care Hgb A1C: POC HGB A1C____ Outpatient Nutrition Screen Body Mass Index (BMI)= 29.7 [place]: Collection DT Specimen Test Name Result Units Ref Range 04/30/2022 13:42 BLOOD !! HEMOGLOBIN A1C 5.0 % 4.0 - 6.0 !! Indicates COMMENTS AVAILABLE...Refer to Interim Lab Report. Bakari Frias Hgb A1C: No data available [place] Hgb A1C: No data available Point of [...] LEARNING: No preference stated Client Assistive Service (YLNNE) Screen Does the patient require assistance with [...] get more. Never true Food Assistance Programs [facility] Food Assistance Programs [facility] /brissa/ CORI JACQUES LPN, LPN Signed: 09/18/2023 15:09 09/18/2023 ADDENDUM STATUS: COMPLETED Sexual Orientation: The patient thinks of their sexual orientation as: Straight or Heterosexual /brissa/ CORI JACQUES LPN, LPN Signed: 09/18/2023 15:12 CORI JACQUES [facility]
--- OUTSIDE RECORDS SUMMARY | 2024-06-08 10:59 | XMS_ITS | Encounter Summary ---
Author Name Department of [place] Organization [place] Address [address] [place] [address] Care Team Providers Care Application Trainer Name Role Phone GAURAV IYER Primary Care [...] Name Patient's Relationship to Policy Cazares BCBS [facility] (WNR) MEDICARE ADVANTAGE [facility] ([facility]) Jun 22, 2022 [id number] [phone] OLESYA REDDY PATIENT CIGNA RETIREE ALLIA NT TECH May 22, 2010 [id number] OLESYA REDDY PATIENT CIGNA MEDICARE SUPPLEMENT MEDICARE SUPPLEMEN RADHIKA MEDIC ARE SUPPL EMENT Jun 22, 2016 [place]AN [place] BASIC [id number] OLESYA REDDY PATIENT MEDICARE (WNR) MEDICARE (M) PART A May 22, 2010 PART A [id number] OLESYA REDDY PATIENT MEDICARE (WNR) MEDICARE (M) PART B May 22, 2010 PART B [id number] OLESYA REDDY PATIENT MEDICARE (WNR) MEDICARE (M) PART A May 22, 2010 PART A [id number] [phone] OLESYA REDDY PATIENT MEDICARE (WNR) MEDICARE (M) PART B May 22, 2010 PART B [id number] [phone] OLESYA REDDY PATIENT Selected Encounter This section includes the information on record at [place] for the Encounter. Date/Time Encounter Type Encounter Description Reason Provider Source Mar 16, 2024 02:11 PM OFF/OP EST OCTOBER X REQ PHY/QHP PRIMARY CARE/MEDICINE ICD-10-CM Z23 Encounter for immunization KEKE MCNEIL Patsy Terrazas IHE Encounter Template Text not used by [place] Assessments - Encounter Diagnoses This section includes [...] care activities for the patient from all [place] treatmentfacilities. This section includes future appointments and future orders which are active, pending or scheduled. Future Appointments This section includes appointments that were scheduled to occur 6 months from the date of the Encounter, up to a maximum of 20 appointments. The data comes from all [place] treatment facilities. Appointment Date/Time Appointment Type Appointme nt Facility Name Apr 19, 2024 01:10 PM AMBULATORY - NONE [facility] Immunizations: All administered on the encounter date This section contains immunizations associated to the Encounter. Immunization Series Date Issued Reaction Comments INFLUENZA, SPLIT VIRUS, TRIVALENT, PF Mar 16 Advance Directives: All historical and current Section Date Range: From patient's date of to the date document was created. This section includes ALL of a patient's completed or amended [place] Advance and Rescinded Directives. The entries below indicate that a directive exists for the patient, but an actual copy is not included with this document. The data comes from all [place] facilities. Date Advance Directives Provider Source Oct 08, 2021 ADVANCE DIRECTIVE DISCUSSION Patsy PINK [facility] Oct 08, 2021 ADVANCE DIRECTIVE KRISTINE PINK [facility] Jun 27, 2011 ADVANCE DIRECTIVE DISCUSSION [facility] Jun 27, 2011 ADVANCE DIRECTIVE KENYA AVILA [facility] Encounter Notes: All associated encounter [...] PF Date Administered: Mar 16, 2024 14:11 Fur Floor Worker: [employer]ov[employer] Lot: [id number] Exp Date: Dec 19, 2024 NDC: [id number] Admin Route/Site: INTRAMUSCULAR/LEFT DELTOID Dosage: 0.5mL Vaccine Information Statement(s): INFLUENZA(FLU) VACC(INACTIVATED OR RECOMBINANT)VIS Jan 25, 2021 ([place]) Order By: Policy Administered By: Selma Mcneil [...] LPN LPN Signed: 03/16/2024 14:12 SELMA MCNEIL ([facility])
--- OUTSIDE RECORDS SUMMARY | 2024-06-08 10:59 | XMS_ITS | Encounter Summary ---
Author Name [facility] [facility] [place] Address [address] [place] [address] Care Team Providers Care Heating Repair Technician Name Role Phone GAURAV IYER Primary [...] Name Patient's Relationship to Policy Cazares BCBS [facility] (WNR) MEDICARE ADVANTAGE [facility] ([facility]) Jun 22, 2022 [id number] [phone] OLESYA REDDY PATIENT CIGNA RETIREE Tagstr May 22, 2010 [id number] [phone] OLESYA REDDY PATIENT CIGNA MEDICARE SUPPLEMENT MEDICARE SUPPLEMEN [facility] MEDIC ARE SUPPL EMENT Jun 22, 2016 [place]AN [place] [id number] OLESYA REDDY PATIENT MEDICARE (WNR) MEDICARE (M) PART A May 22, 2010 PART A [id number] [phone] OLESYA REDDY PATIENT MEDICARE (WNR) MEDICARE (M) PART B May 22, 2010 PART B [id number] [phone] OLESYA REDDY PATIENT MEDICARE (WNR) MEDICARE (M) PART A May 22, 2010 PART A [id number] [phone] OLESYA REDDY PATIENT MEDICARE (WNR) MEDICARE (M) PART B May 22, 2010 PART B [id number] OLESYA REDDY PATIENT Selected Encounter This section includes the information on record at [place] for the Encounter. Date/Time Encounter Type Encounter Description Reason Pro vider Source Mar 15, 2024 02:59 PM Outpatient Encounter COMMUNITY CARE CONSULT IHE Encounter Template Text not used by [place] Plan of Treatment: Future Appointments (+ 6 months) and Future Tests (+/- 45 days) The Plan of Treatment section includes future care activities for the patient from all [place] treatmentfacilities. This section includes future appointments and future orders which are active, pending or scheduled. Future Appointments This section includes appointments that were scheduled to occur 6 months from the date of the Encounter, up to a maximum of 20 appointments. The data comes from all [place] treatment facilities. Appointment Date/Time Appointment Type Appointme nt Facility Name Apr 19, 2024 01:10 PM AMBULATORY - NONE [facility] Social History: Smoking Status (Most current) and Tobacco Use (All prior to encounter date) This section includes the most current, and the historical, smoking and tobacco- related health factors from the [place] facility where the Encounter took place. Current Smoking Status This section includes the most current smoking, or tobacco-related health factor, from the [place] facility where the Encounter took place. Date/Time Current Smoking Status Comment Garett itmicky Sep 18, 2023 03:06 PM VA-TOBACCO NEVER USED [facility] Tobacco Use History This section includes a history of the smoking, or tobacco-related health factors, that were collected on or before the date of the Encounter. The data comes from the [place] facility where the Encounter took place. Date/Time Smoking Status/Tobacco Use Comment F acility Mar 04, 2021 12:55 PM [place]-TO[place] NEVER USED [facility] Advance Directives: All historical and current Section Date Range: From patient's date of to the date document was created. This section includes ALL of a patient's completed or amended [place] Advance and Rescinded Directives. The entries below indicate that a directive exists for the patient, but an actual copy is not included with this document. The data comes from all [place] facilities. Date Advance Directives Provider Source Oct 08, 2021 ADVANCE DIRECTIVE KRISTINE PINK [facility] Oct 08, 2021 ADVANCE DIRECTIVE DISCUSSION Patsy PINK [facility] Jun 27, 2011 AD[facility] DIRECT[facility] Jun 27, 2011 ADVANCE DIRECTIVE KENYA AVILA [facility] Encounter Notes: All associated encounter notes This section contains the clinical notes associated to the Encounter. Date/Time Encounter Note(s) Provider Source Mar 15, 2024 02:59 PM NONVA NOTE: LOCAL TITLE: COMMUNITY CARE PRE-AUTH LETTER (AUTOPRINT) STANDARD TITLE: NONVA NOTE DATE OF NOTE: MAR 15, 2024@14:59 ENTRY DATE: MAR 15, 2024@14:59:19 AUTHOR: ELVIS RUBIO COSIGNER: URGENCY: STATUS: COMPLETED Feb OLESYA REDDY [address] [place] [address] [address] [place], [place] [address] Dear OLESYA REDDY, Your VA provider has referred you to a provider within the community for care. Your medical care for Orthopedic has been authorized with the community care provider listed below. DO NOT REPORT TO THE [place] [facility] Provider info: Care has been approved for the following vendor: Office name, address, and phone number: [address] [address] PH: [phone] Please contact the identified provider to schedule your community appointment. If you need assistance with this appointment, please call your facility community care office [facility] Office of Community Care at [phone] during the hours of 8:30AM - 3:00PM. Please follow up with your local [facility] community care office once this is scheduled. This step is needed to ensure your referral duration is maximized and the [place] has accurate referral information for billing purposes. Authorization Number: [id number] Referral Issue Date: Jan Expiration Date: Jul (subject to change based on first appointment) If you are unable to schedule this appointment or the appointment is no longer needed, please contact the community provider above for notification/rescheduling and then call the [facility] Office of Community Care at [phone] during the hours of 8:30AM - 3:00PM. If you need additional care/services not mentioned above or your authorization has and additional care is needed, please contact your primary care provider for a new referral. To review all care/service(s) approved under your referral, please go to the following link: [employer] [facility]([email or web address]) Co-Payments: If you are required to pay a VA co-payment, you will be billed by the [place] for each authorized visit that you attend. However, you are NOT REQUIRED to make co-payments to a community provider. Thank you for the opportunity to serve you. Sincerely, [place] Community [facility] ([facility]) /brissa/ ELVIS RUBIO Signed: 03/15/2024 15:00 ELVIS RUBIO [facility]
--- OUTSIDE RECORDS SUMMARY | 2024-06-08 10:59 | XMS_ITS | Continuity of Care Document ---
Author Name [facility] Organization [facility] Care Team Providers Care Calibration Laboratory Technician Name Role Phone [facility] Unavailable Unavailable Problems Combined list of problems from Department of Defense and Veterans Affairs facilities. It does not include entries that were removed or entered in error. 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) Active 976 Condition Aug 16, 2012 Entered By: GAURAV IYER Comment: s/p Photo Therapeutic Keratotomy in 2012 Entered By: GAURAV IYER Comment: Corneal transplant for recurrent ulcers in 2012 Entered By: GAURAV IYER Comment: Catract extraction in 2012 Entered By: GAURAV IYER Comment: Bleropheroplasty in 04/2011 [facility] Adjustment Disorder with Anxiety (ICD-9-CM 309.24) Active Condition [facility] Benign essential hypertension (SNOMED CT 5674902) Active Condition [facility] DJD * (ICD-9-CM 715.90) Active Condition [facility] F5 (Coagulation factor V) (eg, Hereditary Hypercoagulabilit y) Gene Analysis, Lei Active Condition Aug 16, 2012 Entered By: GAURAV IYER Comment: dx in 2009 prior to knee replaceement [facility] History of male erectile disorder (SNOMED CT 379907518) Active Condition [facility] HTN * (ICD-9-CM 401.9) Active Condition [facility] Hyperglycemia * (ICD-9-CM 790.29) Active Condition [facility] Hyperlipidemia (SNOMED CT 17383988) Active Condition [facility] Hyperlipidemia * (ICD-9-CM 272.4) Active Condition [facility] Inguinal hernia, without mention of obstruction or gangrene Active Condition Aug 16, 2012 Entered By: GAURAV IYER Comment: s/p L hernioraphy in 2007 and Rt in 2010 [facility] Keratoconus Nos Active Condition [facility] Kidney stone (SNOMED CT 47568465) Active Condition Aug 16, 2012 Entered By: GAURAV IYER Comment: s/p cystoscopy in 2012 Entered By: GAURAV IYER Comment: recurrence in 2007 but no further interventionsAug 16, 2012 Entered By: GAURAV IYER Comment: CT scan in 01/30 Stable [facility] Nephrolithiasis * (ICD-9-CM 592.0) Active Condition [facility] Osteoarthritis (SNOMED CT 573955142) Active Condition Aug 16, 2012 Entered By: GAURAV IYER Comment: Rt knee injury in 1968. 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 [facility] Medications Combined list of outpatient medications from [...] DOSE) FOR CHOLESTE ROL ORAL ACTIVE 09/21/2024 [id number] 4 JAYLON,ARS HAD 2023 90 [facility] ATORVASTATI N CA 20MG TAB TAKE ONE TABLET BY MOUTH AT BEDTIME (FULL TABLET DOSE) FOR CHOLESTE ROL ORAL DISCONT INUED 01/28/2024 [id number] 4 JAYLON,ARS HAD 2022 90 [facility] EPINEPHRINE (EQV-EPI-PE N) 0.3MG/0.3ML INJECTOR INJECT 1 PEN DIRECTED NEEDED FOR ALLERGIC REACTION ACTIVE 11/24/2024 [id number] 4 JAYLON,ARS HAD 2023 2 [facility] GLUCOSAMINE CAP/TAB TAKE ACTIVE JAYLON,ARS HAD 2012 [facility] HYDROCHLORO THIAZIDE 12.5MG/GAYE NOPRIL 20MG TAB TAKE 1 TABLET BY MOUTH EVERY DAY ORAL 05/05/2024 [id number] JAYLON,ARS HAD 2022 90 [facility] MARINE LIPID (FISH OIL) CAP,ORAL TAKE 3000GRAM BY MOUTH ORAL ACTIVE JAYLON,ARS HAD 2012 [facility] MULTIVITAMI NS CAP/TAB TAKE ONE TABLET BY MOUTH EVERY DAY ORAL ACTIVE JAYLON,ARS HAD 2012 [facility] SILDENAFIL CITRATE 100MG TAB TAKE ONE TABLET BY MOUTH NEEDED 1 HOUR BEFORE ANTICIPA HIGINIO SEXUAL ACTIVITY ORAL 05/05/2024 [id number] 4 JAYLON,ARS HAD 2022 18 [facility] Allergies, Adverse Reactions, Alerts Combined list of allergies from Department of Defense and Veterans Affairs facilities. It does not include entries that were removed or entered in error. Substance Category Reaction Severity Reaction type Status Date Reported Comments Source [place] Propensity to adverse reaction (finding) active 7 [facility] BEE STINGS Propensity to adverse reaction (finding) Anaphylaxis active 3 [facility] Immunizations Combined list of available immunizations from the Department of Defense and Veterans Affairs facilities. Immunization Series Date Given Administered By Site Reaction Lot Number CVX Code Drug Program Specialist Status Comments Source INFLUENZA, SPLIT VIRUS, TRIVALENT, PF 2023 KEKE VELIZ LEFT DELTO ID [id number] 140 complet ed [place] [facility] COVID-19 (PFIZER), MRNA, LNP-S, PF, NEAL-SUCROSE, 30 MCG/0.3 ML (AGES 12+ YEARS) 1 2022 SERJIO LAW RIGHT DELTO ID [id number] 309 complet ed [place] [facility] INFLUENZA, HIGH-DOSE, QUADRIVALENT 2022 SERJIO LAW RIGHT DELTO ID [id number] 197 complet ed [place] [facility] COVID-19 (PFIZER), MRNA, LNP-S, BIVALENT BOOSTER, PF, 30 MCG/0.3 ML DOSE 1 2021 300 complet ed PFR; [id number]; 3 [facility] INFLUENZA VACCINE, QUADRIVALENT, ADJUVANTED 2021 205 complet ed [facility] COVID-19 (PFIZER), MRNA, LNP-S, PF, 30 MCG/0.3 ML DOSE, NEAL-SUCROSE (AGES 12+ YEARS) 4 2021 217 complet ed PFR; [id number]; 2 [place] [facility] COVID-19 (PFIZER), MRNA, LNP-S, PF, 30 MCG/0.3 ML DOSE 3 2020 208 complet ed PFR; [id number]; 1 [place] [facility] INFLUENZA, INJECTABLE, QUADRIVALENT, PRESERVATIVE FREE 2020 150 complet ed [facility] COVID-19 (PFIZER), MRNA, LNP-S, PF, 30 MCG/0.3 ML DOSE 2 2020 208 complet ed PFR; [id number]; 1 [facility] COVID-19 (PFIZER), MRNA, LNP-S, PF, 30 MCG/0.3 ML DOSE 1 2020 208 complet ed PFR; [id number]; 1 [facility] INFLUENZA, INJECTABLE, QUADRIVALENT, PRESERVATIVE FREE 2019 150 complet ed [place] [facility] INFLUENZA, HIGH DOSE SEASONAL 2018 135 complet ed [facility] TD (ADULT) 2015 138 complet ed [employer], [id number], 7 [facility] ZOSTER LIVE 2014 121 complet ed [employer] lot# [id number], expiratio n 06-14- [facility] TD (ADULT), 2 LF TETANUS TOXOID, PRESERVATIVE FREE, ADSORBED 2010 09 complet ed [facility] TDAP 2005 115 complet ed [facility] TD(ADULT) UNSPECIFIED FORMULATION 2002 139 complet ed [facility] TD (ADULT), 2 LF TETANUS TOXOID, PRESERVATIVE FREE, ADSORBED 1993 09 complet ed [facility] Results Combined list of recent chemistry, hematology and other laboratory results from Department of Defense and Veterans Affairs, ranging from 15 months to all on record, depending upon the facility. Order Name Results Value Reference Range Date Interpretation Specimen Comments Source HEMOGLOBI N A1C HEMOGLOBIN A1C/HEMOGLO BIN.TOTAL IN [...] Aug 05, 2023 05:03 PM Reporting Lab: [facility] [address] Performing Lab: [facility] [address] [facility] PSA PROSTATE SPECIFIC AG [MASS/VOLUM E] IN SERUM OR PLASMA <0.01n g/mL <4.00 - 4.00 09/17 Specimen Type: SERUM No comment entered. Ordering Provider: ANGIE IYER Report Released Date/Time: Aug 05, 2023 05:03 PM Reporting Lab: [facility] [address] Performing Lab: [facility] [address] [facility] TSH W/REFLEX TO FREE T4 THYROTROPIN [UNITS/VOLU ME] IN SERUM OR PLASMA 1.61 u[IU]/ mL 0.35 - 4.94 09/17 Specimen Type: PLASMA No comment entered. Ordering Provider: ANGIE IYER Report Released Date/Time: Aug 05, 2023 05:03 PM Reporting Lab: [facility] [address] Performing Lab: [facility] [address] [facility] COMPREHEN SIVE METABOLIC PANEL+MG CREATININE [MASS/VOLUM E] IN SERUM OR PLASMA 1.0 mg/dL 0.7 - 1.2 09/17 Specimen Type: PLASMA No comment entered. Ordering Provider: ANIGE IYER Report Released Date/Time: Aug 05, 2023 05:03 PM Reporting Lab: [facility] [address] Performing Lab: [facility] [address] [facility] COMPREHEN SIVE METABOLIC PANEL+MG UREA NITROGEN [MASS/VOLUM E] IN SERUM OR PLASMA 19 mg/dL 8 - 26 09/17 Specimen Type: PLASMA No comment entered. Ordering Provider: ANGIE IYER Report Released Date/Time: Aug 05, 2023 05:03 PM Reporting Lab: [facility] [address] Performing Lab: [facility] [address] [facility] COMPREHEN SIVE METABOLIC PANEL+MG GLUCOSE [MASS/VOLUM E] IN SERUM OR PLASMA 109 mg/dL 70 - 100 09/17 H Specimen Type: PLASMA No comment entered. Ordering Provider: ANGIE IYER Report Released Date/Time: Aug 05, 2023 05:03 PM Reporting Lab: [facility] [address] Performing Lab: [facility] [address] [facility] COMPREHEN SIVE METABOLIC PANEL+MG SODIUM [MOLES/VOLU ME] IN SERUM OR PLASMA 138 mmol/L 136 - 145 09/17 Specimen Type: PLASMA No comment entered. Ordering Provider: ANGIE IYER Report Released Date/Time: Aug 05, 2023 05:03 PM Reporting Lab: [facility] [address] Performing Lab: [facility] [address] [facility] COMPREHEN SIVE METABOLIC PANEL+MG POTASSIUM [MOLES/VOLU ME] IN SERUM OR PLASMA 4.0 mmol/L 3.5 - 5.1 09/17 Specimen Type: PLASMA No comment entered. Ordering Provider: ANGIE IYER Report Released Date/Time: Aug 05, 2023 05:03 PM Reporting Lab: [facility] [address] Performing Lab: [facility] [address] [facility] COMPREHEN SIVE METABOLIC PANEL+MG CHLORIDE [MOLES/VOLU ME] IN SERUM OR PLASMA 102 mmol/L 98 - 107 09/17 Specimen Type: PLASMA No comment entered. Ordering Provider: ANGIE IYER Report Released Date/Time: Aug 05, 2023 05:03 PM Reporting Lab: [facility] [address] Performing Lab: [facility] [address] [facility] COMPREHEN SIVE METABOLIC PANEL+MG CARBON DIOXIDE, TOTAL [MOLES/VOLU ME] IN SERUM OR PLASMA 26 mmol/L 22 - 29 09/17 Specimen Type: PLASMA No comment entered. Ordering Provider: ANGIE IYER Report Released Date/Time: Aug 05, 2023 05:03 PM Reporting Lab: [facility] [address] Performing Lab: [facility] [address] [facility] COMPREHEN SIVE METABOLIC PANEL+MG CALCIUM [MASS/VOLUM E] IN SERUM OR PLASMA 9.9 mg/dL 8.4 - 10.2 09/17 Specimen Type: PLASMA No comment entered. Ordering Provider: ANGIE IYER Report Released Date/Time: Aug 05, 2023 05:03 PM Reporting Lab: [facility] [address] Performing Lab: [facility] [address] [facility] COMPREHEN SIVE METABOLIC PANEL+MG PROTEIN [MASS/VOLUM E] IN SERUM OR PLASMA 7.1 g/dL 6.0 - 8.3 09/17 Specimen Type: PLASMA No comment entered. Ordering Provider: ANGIE IYER Report Released Date/Time: Aug 05, 2023 05:03 PM Reporting Lab: [facility] [address] Performing Lab: [facility] [address] [facility] COMPREHEN SIVE METABOLIC PANEL+MG ALBUMIN [MASS/VOLUM E] IN SERUM OR PLASMA 4.3 g/dL 3.5 - 5.2 09/17 Specimen Type: PLASMA No comment entered. Ordering Provider: ANGIE IYER Report Released Date/Time: Aug 05, 2023 05:03 PM Reporting Lab: [facility] [address] Performing Lab: [facility] [address] [facility] COMPREHEN SIVE METABOLIC PANEL+MG BILIRUBIN.T OTAL [MASS/VOLUM E] IN SERUM OR PLASMA 0.9 mg/dL 0.2 - 1.2 09/17 Specimen Type: PLASMA No comment entered. Ordering Provider: ANGIE IYER Report Released Date/Time: Aug 05, 2023 05:03 PM Reporting Lab: [facility] [address] Performing Lab: [facility] [address] [facility] COMPREHEN SIVE METABOLIC PANEL+MG MAGNESIUM [MASS/VOLUM E] IN SERUM OR PLASMA 1.8 mg/dL 1.6 - 2.6 09/17 Specimen Type: PLASMA No comment entered. Ordering Provider: ANGIE IYER Report Released Date/Time: Aug 05, 2023 05:03 PM Reporting Lab: [facility] [address] Performing Lab: [facility] [address] [facility] COMPREHEN SIVE METABOLIC PANEL+MG ANION GAP IN SERUM OR PLASMA 10 mmol/L 5 - 15 09/17 Specimen Type: PLASMA No comment entered. Ordering Provider: ANGIE IYER Report Released Date/Time: Aug 05, 2023 05:03 PM Reporting Lab: [facility] [address] Performing Lab: [facility] [address] [facility] COMPREHEN SIVE METABOLIC PANEL+MG ALKALINE PHOSPHATASE [ENZYMATIC ACTIVITY/VO LUME] IN SERUM OR PLASMA 63 U/L 40 - 150 09/17 Specimen Type: PLASMA No comment entered. Ordering Provider: ANGIE IYER Report Released Date/Time: Aug 05, 2023 05:03 PM Reporting Lab: [facility] [address] Performing Lab: [facility] [address] [facility] COMPREHEN SIVE METABOLIC PANEL+MG ALANINE AMINOTRANSF ERASE [ENZYMATIC ACTIVITY/VO LUME] IN SERUM OR PLASMA 27 U/L <55 - 55 09/17 Specimen Type: PLASMA No comment entered. Ordering Provider: ANGIE IYER Report Released Date/Time: Aug 05, 2023 05:03 PM Reporting Lab: [facility] [address] Performing Lab: [facility] [address] [facility] COMPREHEN SIVE METABOLIC PANEL+MG ASPARTATE AMINOTRANSF ERASE [ENZYMATIC ACTIVITY/VO LUME] IN SERUM OR PLASMA 25 U/L <34 - 34 09/17 Specimen Type: PLASMA No comment entered. Ordering Provider: ANGIE IYER Report Released Date/Time: Aug 05, 2023 05:03 PM Reporting Lab: [facility] [address] Performing Lab: [facility] [address] [facility] COMPREHEN SIVE METABOLIC PANEL+MG GLOMERULAR FILTRATION RATE/1.73 SQ M.PREDICTED [VOLUME RATE/AREA] IN SERUM, PLASMA OR BLOOD BY CREATININE- BASED FORMULA (CKD-EPI 2020) 77 60 09/17 Specimen Type: PLASMA No comment entered. Ordering Provider: ANGIE IYER Report Released Date/Time: Aug 05, 2023 05:03 PM Reporting Lab: [facility] [address] Performing Lab: [facility] [address] [facility] LIPID PANEL,NON -FASTING CHOLESTEROL [MASS/VOLUM E] IN SERUM OR PLASMA 174 mg/dL <199 - 199 09/17 Specimen Type: PLASMA No comment entered. Ordering Provider: ANGIE IYER Report Released Date/Time: Aug 05, 2023 05:03 PM Reporting Lab: [facility] [address] Performing Lab: [facility] [address] [facility] LIPID PANEL,NON -FASTING CHOLESTEROL IN HDL [MASS/VOLUM E] IN SERUM OR PLASMA 46 mg/dL 40 09/17 Specimen Type: PLASMA No comment entered. Ordering Provider: ANGIE IYER Report Released Date/Time: Aug 05, 2023 05:03 PM Reporting Lab: [facility] [address] Performing Lab: [facility] [address] [facility] LIPID PANEL,NON -FASTING CHOLESTEROL IN LDL [MASS/VOLUM E] IN SERUM OR PLASMA BY CALCULATION 96 mg/dL <99 - 99 09/17 Specimen Type: PLASMA No comment entered. Ordering Provider: ANGIE IYER Report Released Date/Time: Aug 05, 2023 05:03 PM Reporting Lab: [facility] [address] Performing Lab: [facility] [address] [facility] LIPID PANEL,NON -FASTING CHOLESTEROL IN VLDL [MASS/VOLUM E] IN SERUM OR PLASMA BY CALCULATION 32 mg/dL <29 - 29 09/17 H Specimen Type: PLASMA No comment entered. Ordering Provider: ANGIE IYER Report Released Date/Time: Aug 05, 2023 05:03 PM Reporting Lab: [facility] [address] Performing Lab: [facility] [address] [facility] LIPID PANEL,NON -FASTING CHOLESTEROL NON HDL [MASS/VOLUM E] IN SERUM OR PLASMA 128 mg/dL <129 - 129 09/17 Specimen Type: PLASMA No comment entered. Ordering Provider: ANGIE IYER Report Released Date/Time: Aug 05, 2023 05:03 PM Reporting Lab: [facility] [address] Performing Lab: [facility] [address] [facility] LIPID PANEL,NON -FASTING TRIGLYCERID E [MASS/VOLUM E] IN SERUM OR PLASMA 162 mg/dL <149 - 149 09/17 H Specimen Type: PLASMA No comment entered. Ordering Provider: ANGIE IYER Report Released Date/Time: Aug 05, 2023 05:03 PM Reporting Lab: [facility] [address] Performing Lab: [facility] [address] [facility] Vital Signs Combined list of inpatient and [...] [facility] RESPIRATION 17 09/21/2023 13:38:43 [facility] Encounters Combined list of: 1) Encounters from Department of Veterans Affairs facilities going back up to thelast 18 months. 2) Encounters from the Department of Defense facilities going back up to 280 months. Location Location Details Encounter Type Encounter Number Reason For Visit Attending Provider ADM Date DC Date Status Disposition Source [place] [facility] ADMN SARSCOV2 VACC 1 DOSE [id number] Diagnos is: ICD-10- CM Z23 Encount er for immuniz ation<b r/> Lucy LAW 05/22 [place] [facility] [place] [facility] Outpatient Encounter [id number] 05/22 [facility] [place] [facility] Outpatient Encounter [id number] 06/02 [place] [facility] [place] [facility] Outpatient Encounter [id number] 08/05 [facility] [place] [facility] Outpatient Encounter [id number] DIGNA JACQUES 09/17 [facility] Outpatient Encounter [id number] Diagnos is: ICD-10- CM D07.5 Carcino ma in situ of prostat e
FLORENCIO IYER 09/20 [facility] [place] [facility] Outpatient Encounter [id number] CORBY LOPEZ 01/10 [place] [facility] [place] [facility] Outpatient Encounter [id number] Vince GRAHAM 01/11 [facility] [place] [facility] Outpatient Encounter [id number] HERMELINDA MCCULLOUGH SA 01/12 [facility] [place] [facility] Outpatient Encounter [id number] 01/21 [place] [facility] [place] [facility] Outpatient Encounter [id number] Kimberly JAIMES 02/03 [facility] [place] [facility] Outpatient Encounter [id number] 02/03 [facility] [place] [facility] Outpatient Encounter [id number] 03/15 [facility] [place] [facility] OFF/OP EST MAY X REQ PHY/QHP [id number] Diagnos is: ICD-10- CM Z23 Encount er for immuniz ation<b r/> KEREN,FABIEN ORAH A 03/16 [place] [facility] Social History Combined list of available smoking, tobacco, and other social history from Department of Defense and [facility] facilities. Social History Type Response Date Comment [facility] e 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 11/03/2016 [facility] History of tobacco use 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 10/23/2015 [facility] History of tobacco use 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 10/25/2014 [facility] History of tobacco use 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 An actual copy of the Directive is not included. Date Advance Directive Provider Source 10/08/2021 ADVANCE DIRECTIVE KRISTINE PINK [facility] 06/27/2011 ADVANCE DIRECTIVE DISCUSSION KENYA AVILA [facility] 06/27/2011 ADVANCE DIRECTIVE KENYA AVILA [facility]
--- OUTSIDE RECORDS SUMMARY | 2024-06-08 10:59 | XMS_ITS | Encounter Summary ---
Author Name [facility] [place] [facility] [place] Address [address] [place] [address] Care Team Providers Care Spray I Painter Name Role Phone GAURAV IYER Primary Care [...] Name Patient's Relationship to Policy Cazares BCBS [facility] (WNR) MEDICARE ADVANTAGE [facility] Jun 22, 2022 [id number] [phone] OLESYA REDDY PATIENT CIGNA RETIREE [employer] May 22, 2010 [id number] OLESYA REDDY PATIENT CIGNA MEDICARE SUPPLEMENT MEDICARE SUPPLEMEN [place] MEDIC ARE SUPPL EMENT Jun 22, 2016 PLAN [place] BASIC [id number] OLESYA REDDY PATIENT MEDICARE (WNR) MEDICARE (M) PART A May 22, 2010 PART A [id number] [phone] OLESYA REDDY PATIENT MEDICARE (WNR) MEDICARE (M) PART B May 22, 2010 PART B [id number] [phone] OLESYA REDDY PATIENT MEDICARE (WNR) MEDICARE (M) PART A May 22, 2010 PART A [id number] [phone] OLESYA REDDY PATIENT MEDICARE (WNR) MEDICARE (M) PART B May 22, 2010 PART B [id number] OLESYA REDDY PATIENT Selected Encounter This section includes the information on record at [place] for the Encounter. Date/Time Encounter Type Encounter Description Reason Pro vider Source Feb 04, 2024 11:57 AM Outpatient Encounter COMMUNITY CARE CONSULT IHE Encounter Template Text not used by [place] Plan of Treatment: Future Appointments (+ 6 months) and Future Tests (+/- 45 days) The Plan of Treatment section includes future care activities for the patient from all [place] [facility]. This section includes future appointments and future orders which are active, pending or scheduled. Future Appointments This section includes appointments that were scheduled to occur 6 months from the date of the Encounter, up to a maximum of 20 appointments. The data comes from all [place] treatment facilities. Appointment Date/Time Appointment Type Appointme nt Facility Name Apr 19, 2024 01:10 PM [facility] Active, Pending, and Scheduled Orders This section includes a listing of several types of active, pending, and scheduled orders, including clinic medications orders, diagnostic test orders, procedure orders and consult orders; where the start date of the order is 45 days before the date of the Encounter or 45 days after the date of theEncounter. The data comes from all [place] treatment [facility]. Test Date/Time Test Type Test Details Facility Name Jan 13, 2024 04:15 PM Consult Order COMMUNITY CARE-ORTHO SURG Cons [employer] Choice [facility] Social History: Smoking Status (Most current) and Tobacco Use (All prior to encounter date) This section includes the most current, and the historical, smoking and tobacco- related health factors from the [place] facility where the Encounter took place. Current Smoking Status This section includes the most current smoking, or tobacco-related health factor, from the [place] facility where the Encounter took place. Date/Time Current Smoking Status Comment Facil amrik Sep 18, 2023 03:06 PM VA-TOBACCO NEVER USED [facility] Tobacco Use History This section includes a history of the smoking, or tobacco-related health factors, that were collected on or before the date of the Encounter. The data comes from the [place] facility where the Encounter took place. Date/Time Smoking Status/Tobacco Use Comment F acility Mar 04, 2021 12:55 PM VA-TOBACCO NEVER USED [facility] Advance Directives: All historical and current Section Date Range: From patient's date of to the date document was created. This section includes ALL of a patient's completed or amended [place] Advance and Rescinded Directives. The entries below indicate that a directive exists for the patient, but an actual copy is not included with this document. The data comes from all [facility]. Date Advance Directives Provider Source Oct 08, 2021 ADVANCE DIRECTIVE KRISTINE PINK [facility] Oct 08, 2021 ADVANCE DIRECTIVE DISCUSSION Patsy PINK [facility] Jun 27, 2011 ADVANCE DIRECTIVE DISCUSSION KENYA AVILA [facility] Jun 27, 2011 ADVANCE DIRECTIVE KENYA AVILA [facility] Radiology Reports: +/- 30 days of the [...] the Encounter. The data comes from all [place] treatment facilities. Date/Time Radiology Report Provider Source Jan 11, 2024 01:12 PM NON [place] KNEE LEFT: OLESYA REDDY [id number] -[id number] M Ex Date: JAN 11, 2024@13:12 Req Phys: GAURAV IYER Pat Loc: [facility] XRAY GENERAL AM (Req'g Loc Img Loc: OUTSOURCE MAIN X-RAY Service: Unknown (Case [id number] COMPLETE) NON VA KNEE LEFT (RAD Detailed) CPT:47839 Reason for Study: OUTSIDE STUDY Clinical History: OUTSIDE STUDY Report Status: Electronically Filed Date Reported: JAN 13, 2024 Report: This is an outside Imaging study and/or report imported for continuity of patient care. This Imaging study and/or report was not reviewed or verified by a [place] Radiologist. Impression: This is an outside Imaging study and/or report imported for continuity of patient care. This Imaging study and/or report was not reviewed or verified by a [place] Radiologist. Primary Diagnostic Code: VERIFIED BY: / *ELECTRONICALLY FILED* [facility] Encounter Notes: All associated encounter notes This section contains the clinical notes associated to the Encounter. Date/Time Encounter Note(s) Provider Source Feb 04, 2024 11:57 AM NONVA NOTE: LOCAL TITLE: COMMUNITY CARE PRE-AUTH LETTER (AUTOPRINT) STANDARD TITLE: NONVA NOTE DATE OF NOTE: FEB 04, 2024@11:57 ENTRY DATE: FEB 04, 2024@11:57:52 AUTHOR: YASMEEN MEJIAS COSIGNER: URGENCY: STATUS: COMPLETED Jan OLESYA REDDY [address] [place] [address] [place] [address] Dear OLESYA REDDY, Your [facility] provider has referred you to a provider within the community for care. Your medical care for ORTHOPEDICS has been authorized with the community care provider listed below. DO NOT REPORT TO THE [place] [facility] Provider info: Care has been approved for the following vendor: Office name, address, and phone number: [address] [address] PH: [phone] Please contact the identified provider to schedule your community appointment. If you need assistance with this appointment, please call your facility community care office [facility] at [phone] during the hours of 8:30AM - 3:00PM. Please follow up with your local [facility] community care office once this is scheduled. This step is needed to ensure your referral duration is maximized and the [place] has accurate referral information for billing purposes. Authorization Number: [id number] Referral Issue Date: Jan Expiration Date: Jul (subject to change based on first appointment) If you are unable to schedule this appointment or the appointment is no longer needed, please contact the community provider above for notification/rescheduling and then call the [facility] Community [facility] at [phone] during the hours of 8:30AM - 3:00PM. If you need additional care/services not mentioned above or your authorization has and additional care is needed, please contact your primary care provider for a new referral. To review all care/service(s) approved under your referral, please go to the following link: [employer] Co-Payments: If you are required to pay a VA co-payment, you will be billed by the [place] for each authorized visit that you attend. However, you are NOT REQUIRED to make co-payments to a community provider. Thank you for the opportunity to serve you. Sincerely, [place] Community Care ([facility]) /brissa/ YASMEEN MEJIAS DEFENSE ANALYST Signed: 02/04/2024 11:58 YASMEEN MEJIAS [facility]
--- OUTSIDE RECORDS SUMMARY | 2024-06-08 11:00 | XMS_ITS | Encounter Summary ---
Author Name [facility] [place] Organization [facility] [place] Address [address] [place] [address] Care Team Providers Care [employer] Principal Name Role Phone GAURAV IYER Primary Care [...] Relationship to Policy Cazares BCBS [facility] ([facility]) MEDICARE ADVANTAGE [facility] ([facility]) Jun 22, 2022 [id number] [phone] OLESYA REDDY PATIENT CIGNA RETIREE ALLIA Okeyko May 22, 2010 [id number] OLESYA REDDY PATIENT CIGNA MEDICARE SUPPLEMENT MEDICARE SUPPLEMEN RADHIKA MEDIC ARE SUPPL EMENT Jun 22, 2016 PLAN AL BASIC [id number] OLESYA REDDY PATIENT MEDICARE (WNR) MEDICARE (M) PART A May 22, 2010 PART A [id number] OLESYA REDDY PATIENT MEDICARE (WNR) MEDICARE (M) PART B May 22, 2010 PART B [id number] OLESYA REDDY PATIENT MEDICARE (WNR) MEDICARE (M) PART A May 22, 2010 PART A [id number] [phone] OLESYA REDDY PATIENT MEDICARE (WNR) MEDICARE (M) PART B May 22, 2010 PART B [id number] OLESYA REDDY PATIENT Selected Encounter This section includes the information on record at [place] for the Encounter. Date/Time Encounter Type Encounter Description Reason Provider Source Jan 12, 2024 12:46 PM Outpatient Encounter TELEPHONE TRIAGE TATIANA GRAHAM [facility] Encounter Template Text not used by [place] Plan of Treatment: Future Appointments (+ 6 months) and Future Tests (+/- 45 days) The Plan of Treatment section includes future care activities for the patient from [facility] [place] [facility] This section includes future appointments and future orders which are active, pending or scheduled. Future Appointments This section includes appointments that were scheduled to occur 6 months from the date of the Encounter, up to a maximum of 20 appointments. The data comes from all [facility] facilities. Appointment Date/Time Appointment Type Appointme nt Facility Name Jan 13, 2024 08:11 AM AMBULATORY - NONE [facility] Apr 19, 2024 01:10 PM AMBULATORY - NONE [facility] Active, Pending, and Scheduled Orders This section includes a listing of several types of active, pending, and scheduled orders, including clinic medications orders, diagnostic test orders, procedure orders and consult orders; where thestart date of the order is 45 days before the date of the Encounter or 45 days after the date of the Encounter. The data comes from all [facility] facilities. Test Date/Time Test Type Test Details Facility Name Jan 13, 2024 04:15 PM Consult Order COMMUNITY CARE-ORTHO SURG Cons Computer Information Systems Instructor's Choice [facility] Social History: Smoking Status (Most current) and Tobacco Use (All prior to encounter date) This section includes the most current, and the historical, smoking and tobacco- related health factors from the [place] facility where the Encounter took place. Current Smoking Status This section includes the most current smoking, or tobacco-related health factor, from the [place] facility where the Encounter took place. Date/Time Current Smoking Status Comment Garett rowley Sep 18, 2023 03:06 PM VA-TOBACCO NEVER USED [facility] Tobacco Use History This section includes a history of the smoking, or tobacco-related health factors, that were collected on or before the date of the Encounter. The data comes from the [place] facility where the Encounter took place. Date/Time Smoking Status/Tobacco Use Comment Raman rice Mar 04, 2021 12:55 PM VA-TOBACCO NEVER USED [facility] Advance Directives: All historical and current Section Date Range: From patient's date of to the date document was created. This section includes ALL of a patient's completed or amended [place] Advance and Rescinded Directives. The entries below indicate that a directive exists for the patient, but an actual copy is not included with this document. The data comes from all [facility]. Date Advance Directives Provider Source Oct 08, 2021 ADVANCE DIRECTIVE KRISTINE PINK [facility] Oct 08, 2021 ADVANCE DIRECTIVE DISCUSSION Patsy PINK [facility] Jun 27, 2011 ADVANCE DIRECTIVE DISCUSSION KENYA AVILA [facility] Jun 27, 2011 ADVANCE DIRECTIVE KENYA AVILA [facility] Radiology Reports: +/- 30 days of the [...] the Encounter. The data comes from all [place] treatment facilities. Date/Time Radiology Report Provider Source Jan 11, 2024 01:12 PM NON VA KNEE LEFT: OLESYA REDDY [id number] -1945 M Ex Date: JAN 11, 2024@13:12 Req Phys: GAURAV IYER Pat Loc: [facility] XRAY GENERAL AM (Req'g Loc Img Loc: OUTSOURCE MAIN X-RAY Service: Unknown (Case [id number] COMPLETE) NON VA KNEE LEFT (RAD Detailed) CPT:38124 Reason for Study: OUTSIDE STUDY Clinical History: OUTSIDE STUDY Report Status: Electronically Filed Date Reported: JAN 13, 2024 Report: This is an outside Imaging study and/or report imported for continuity of patient care. This Imaging study and/or report was not reviewed or verified by a [place] Radiologist. Impression: This is an outside Imaging study and/or report imported for continuity of patient care. This Imaging study and/or report was not reviewed or verified by a [place] Radiologist. Primary Diagnostic Code: VERIFIED BY: / *ELECTRONICALLY FILED* [facility] Encounter Notes: All associated encounter notes This section contains the clinical notes associated to the Encounter. Date/Time Encounter Note(s) Provider Source Jan 13, 2024 09:08 AM ADDENDUM: LOCAL TITLE: Addendum STANDARD TITLE: ADDENDUM DATE OF NOTE: JAN 13, 2024@09:08:38 ENTRY DATE: JAN 13, 2024@09:08:39 AUTHOR: ISAIAH ORTIZ COSIGNER: URGENCY: STATUS: COMPLETED Called pt at [phone]. Apologized to pt about not calling back yesterday, was working on trying to get his imaging sent to us so Ortho consult can be place. Informed pt this sign writer letterer or painter was connecting with someone through the [place] to have the imaging transferred to us since we have the written report of it already. While on the phone with pt, imaging came through and this sign writer letterer or painter verified this. Informed pt this sign writer letterer or painter would alert to place Ortho consult to review and advise on, then Ortho would review it and consult on what could/should be done. Pt reported he understood. This sign writer letterer or painter offered to call pt once consult was placed, pt reported as long as it was ordered, he was fine with just knowing that. Pt reported that he lives in [place] 90% of the time and would like to transfer to the [facility]. This sign writer letterer or painter connected with Faculty Research Assistant and was informed that no travel consult was needed as it is in the same [place] and they will be able to see the records from [facility] and [facility]. This sign writer letterer or painter would have our MSA update his residential address to match his mailing address. Pt reported he understood everything, no questions/concerns, agreed w/plan and was thankful for all the help. Alerting to place Orhto consult. Imaging is available in [place]. x-ray report from [facility]: XR KNEE LEFT 3 VIEWS HISTORY: 78 years Male left knee giving out on him, tenderness and swelling to entire knee; WEIGHT BEARING XRAYS PLEASE COMPARISON: None TECHNIQUE: Left knee 3 views weightbearing. FINDINGS: There is severe medial compartment joint space narrowing. There is chondrocalcinosis. There is patellofemoral osteophytosis of mild severity. There is a small joint effusion. Alerting MSA to please update pt's residential address to be: [address] [place], [place] [address] [address] /es/ ISAIAH ORTIZ RN REGISTERED NURSE Signed: 01/13/2024 10:33 Receipt Acknowledged By: 01/13/2024 16:16 /es/ GAURAV IYER MD STAFF PHYSICAN 01/14/2024 13:57 /es/ DIVINA DUKE MSA --- Original Document --- 01/12/24 CCC: CLINICAL TRIAGE: Patient Demographics Patient Name: OLESYA REDDY Patient Primary Address: [address] [place] [address] [address] [place] [address] Patient Primary Phone: [phone] Patient : 1945 Patient Age: 78 Caller/Recipient Relation to Patient: Self Emergency Contact: GRACE REDDY Nursing Plan and Disposition Other course(s) of action Generated msg to PACT/Provider Nurse Summary Nurse Summary: PATIENT CONCERN/DURATION/ONSET: [place] [facility]. Got xrays done and told vet he needs to have an Ortho doc review them. How does vet get the XRays sent to his PCP? WHAT HAS PATIENT TRIED TO TREAT THE SYMPTOMS: went [place] yesterday - see 01/11/24 triage note HISTORY/PREVIOUS TREATMENT: HTN, hyperlipidemia, prostate Ca, osteoarthritis WHAT IS PATIENT GOAL FOR THE CALL: Got xrays done and told vet he needs to have an Ortho doc review them. How does hilary get the XRays sent to his PCP? Was Virtual Care Visit considered (TELE or VVC)? no PAINTER HAND DISPOSITION: Triage recommendation is: Transferred vet to [facility] Referral Case Management [phone], to initiate the process of [facility]. Provided [facility] AMADA [phone] and fax number for all [facility] PACT CBOC teams per Co Managed care SOP [phone]. [place]yt very upset about being on the phone for past 2 hours, passed from dept to dept without a resolution to his issue, offered to send to Patient advocate and vet declined. Vet angry about the inability to contact his CBOC directly as he feels this would have resolved his issue quickly, states it has affected his mental health, offered to transfer him to the mental health dept, vet declined. His voice was calm throughout the call, he expressed his frustrations to this RN, thanked RN for her assistance. Message Hair Baler to PCP to notify of this interaction and need for Ortho referral, advise contact from PACT > 24 hours. Please contact vet after getting the xrays to notify him of how to get the Ortho referral process done. Vet verbalizes understanding of plan of care. Best contact for [place] is [phone] (Verified). This note was created by a [address] director river restoration. Please do not alert this nurse by adding as a signer for future communications. Alerts are not monitored by this user, please reach out to [facility] Leadership instead if indicated. Clinical Contact Center Codes Clinic/Location: [address] PHONE [facility] RN /brissa/ TATIANA GRAHAM [employer] [address], CHARLIE MCCRARY [place] Signed: 01/12/2024 11:46 01/12/2024 ADDENDUM STATUS: COMPLETED [place] called in reference to the message below. [place] was transferred to [facility]. requesting a call EDITH> /es/ M WONG BUTLER3 [facility] MSA Signed: 01/12/2024 12:12 Receipt Acknowledged By: 01/13/2024 08:55 /brissa/ ISAIAH ORTIZ RN REGISTERED NURSE ISAIAH ORTIZ [facility] Jan 12, 2024 12:11 PM ADDENDUM: LOCAL TITLE: Addendum STANDARD TITLE: ADDENDUM DATE OF NOTE: JAN 12, 2024@12:11:17 ENTRY DATE: JAN 12, 2024@12:11:18 AUTHOR: YOANDY BACK COSIGNER: URGENCY: STATUS: COMPLETED called in reference to the message below. was transferred to [facility]. [place] requesting a call EDITH> /es/ M WONG VISN23 [facility] MSA Signed: 01/12/2024 12:12 Receipt Acknowledged By: 01/13/2024 08:55 /phoenix ORTIZ RN REGISTERED NURSE --- Original Document --- 01/12/24 CCC: CLINICAL TRIAGE: Patient Demographics Patient Name: OLESYA REDDY Patient Primary Address: [address] [place] [address] [address] [place] [address] Patient Primary Phone: [phone] Patient : 1945 Patient Age: 78 Caller/Recipient Relation to Patient: Self Emergency Contact: GRACE REDDY Nursing Plan and Disposition Other course(s) of action Generated msg to PACT/Provider Nurse Summary Nurse Summary: PATIENT CONCERN/DURATION/ONSET: [place] went [facility]. Got xrays done and told vet he needs to have an Ortho doc review them. How does vet get the XRays sent to his PCP? WHAT HAS PATIENT TRIED TO TREAT THE SYMPTOMS: went to non [place] yesterday - see 01/11/24 triage note HISTORY/PREVIOUS TREATMENT: HTN, hyperlipidemia, prostate Ca, osteoarthritis WHAT IS PATIENT GOAL FOR THE CALL: Got xrays done and told vet he needs to have an Ortho doc review them. How does vet get the XRays sent to his PCP? Was Virtual Care Visit considered (TELE or VVC)? no PAINTER HAND DISPOSITION: Triage recommendation is: Transferred vet to [facility] Referral Case Management [phone], to initiate the process of getting [facility]. Provided [facility] AMADA [phone] and fax number for all [facility] PACT CBOC teams per [facility] Managed care SOP [phone]. Vet very upset about being on the phone for past 2 hours, passed from dept to dept without a resolution to his issue, offered to send to Patient advocate and vet declined. Vet angry about the inability to contact his CBOC directly as he feels this would have resolved his issue quickly, states it has affected his mental health, offered to transfer him to the mental health dept, vet declined. His voice was calm throughout the call, he expressed his frustrations to this RN, thanked RN for her assistance. Message Hair Baler to PCP to notify of this interaction and need for Ortho referral, advise contact from PACT > 24 hours. Please contact vet after getting the xrays to notify him of how to get the Ortho referral process done. Vet verbalizes understanding of plan of care. Best contact for is [phone] (Verified). This note was created by a [address] director river restoration. Please do not alert this nurse by adding as a signer for future communications. Alerts are not monitored by this user, please reach out to [facility] Connect Leadership instead if indicated. Clinical Contact Center Codes Clinic/Location: V23 [facility] PHONE [facility] RN /es/ CHARLIE PERAZA [place] V23 [facility], CHARLIE MCCRARY [place] Signed: 01/12/2024 11:46 01/12/2024 ADDENDUM STATUS: UNSIGNED You may not VIEW this UNSIGNED Addendum. YOANDY BACK [facility] Jan 12, 2024 11:46 AM RN PROGRESS NOTE: LOCAL TITLE: CCC: CLINICAL TRIAGE STANDARD TITLE: RN PROGRESS NOTE DATE OF NOTE: JAN 12, 2024@11:46:20 ENTRY DATE: JAN 12, 2024@11:46:20 AUTHOR: TATIANA GRAHAM EXP COSIGNER: URGENCY: STATUS: COMPLETED CCC: CLINICAL TRIAGE Has ADDENDA Patient Demographics Patient Name: OLESYA REDDY Patient Primary Address: [address] [place] [address] [address] [place] [address] Patient Primary Phone: [phone] Patient : 1945 Patient Age: 78 Caller/Recipient Relation to Patient: Self Emergency Contact: GRACE REDDY Nursing Plan and Disposition Other course(s) of action Generated msg to PACT/Provider Nurse Summary Nurse Summary: PATIENT CONCERN/DURATION/ONSET: [place] [facility]. Got xrays done and told vet he needs to have an Ortho doc review them. How does vet get the XRays sent to his PCP? WHAT HAS PATIENT TRIED TO TREAT THE SYMPTOMS: went to [facility] yesterday - see 01/11/24 triage note HISTORY/PREVIOUS TREATMENT: HTN, hyperlipidemia, prostate Ca, osteoarthritis WHAT IS PATIENT GOAL FOR THE CALL: Got xrays done and told vet he needs to have an Ortho doc review them. How does vet get the XRays sent to his PCP? Was Virtual Care Visit considered (TELE or VVC)? no PAINTER HAND DISPOSITION: Triage recommendation is: Transferred vet to [facility] Referral Case Management [phone], to initiate the process of getting [facility]. Provided [facility] [phone] and fax number for all [facility] PACT CBOC teams per [place] Managed care SOP [phone]. Hilary very upset about being on the phone for past 2 hours, passed from dept to dept without a resolution to his issue, offered to send to Patient advocate and vet declined. Vet angry about the inability to contact his CBOC directly as he feels this would have resolved his issue quickly, states it has affected his mental health, offered to transfer him to the mental health dept, vet declined. His voice was calm throughout the call, he expressed his frustrations to this RN, thanked RN for her assistance. Message Hair Baler to PCP to notify of this interaction and need for Ortho referral, advise contact from PACT > 24 hours. Please contact vet after getting the xrays to notify him of how to get the Ortho referral process done. Vet verbalizes understanding of plan of care. Best contact for [place] is [phone] (Verified). This note was created by a [address] director river restoration. Please do not alert this nurse by adding as a signer for future communications. Alerts are not monitored by this user, please reach out to [facility] Leadership instead if indicated. Clinical Contact Center Codes Clinic/Location: [address] PHONE [facility] RN /brissa/ CHARLIE PERAZA MA [facility] Health Connect, CHARLIE MCCRARY [place] Signed: 01/12/2024 11:46 01/12/2024 ADDENDUM STATUS: COMPLETED called in reference to the message below. [place] was transferred to [facility]. [place] requesting a call EDITH> /brissa/ Russ WONG VISN23 [facility] Signed: 01/12/2024 12:12 Receipt Acknowledged By: 01/13/2024 08:55 /brissa/ ISAIAH ORTIZ RN REGISTERED NURSE 01/13/2024 ADDENDUM STATUS: COMPLETED Called pt at [phone]. Apologized to pt about not calling back yesterday, was working on trying to get his imaging sent to us so Ortho consult can be place. Informed pt this sign writer letterer or painter was connecting with someone through the [place] to have the imaging transferred to us since we have the written report of it already. While on the phone with pt, imaging came through and this sign writer letterer or painter verified this. Informed pt this sign writer letterer or painter would alert to place Ortho consult to review and advise on, then Ortho would review it and consult on what could/should be done. Pt reported he understood. This sign writer letterer or painter offered to call pt once consult was placed, pt reported as long as it was ordered, he was fine with just knowing that. Pt reported that he lives in [place] 90% of the time and would like to transfer to the [facility]. This sign writer letterer or painter connected with Faculty Research Assistant and was informed that no travel consult was needed as it is in the same [place] and they will be able to see the records from [facility] and [facility]. This sign writer letterer or painter would have our MSA update his residential address to match his mailing address. Pt reported he understood everything, no questions/concerns, agreed w/plan and was thankful for all the help. Alerting to place Orhto consult. Imaging is available in [place]. x-ray report from [facility]: XR KNEE LEFT 3 VIEWS HISTORY: 78 years Male left knee giving out on him, tenderness and swelling to entire knee; WEIGHT BEARING XRAYS PLEASE COMPARISON: None TECHNIQUE: Left knee 3 views weightbearing. FINDINGS: There is severe medial compartment joint space narrowing. There is chondrocalcinosis. There is patellofemoral osteophytosis of mild severity. There is a small joint effusion. Alerting [facility] to please update pt's residential address to be: [address] [place] [id number] /brissa/ ISAIAH ORTIZ RN REGISTERED NURSE Signed: 01/13/2024 10:33 Receipt Acknowledged By: * AWAITING SIGNATURE * GAURAV IYER * AWAITING SIGNATURE * DIVINA EDWARDS,TATIANA Whatley [facility]
--- OUTSIDE RECORDS SUMMARY | 2024-06-08 11:00 | XMS_ITS | Encounter Summary ---
Author Name [facility] [place] [facility] [place] Address [address] [place] [address] Care Team Providers Care Telephone Order Clerk Room Service Name Role Phone GAURAV IYER Primary Care [...] Policy Cazares BCBS [facility] ([facility]) MEDICARE ADVANTAGE [facility] ([facility]) Jun 22, 2022 [id number] [phone] OLESYA REDDY PATIENT CIGNA RETIREE ALLIA [employer] May 22, 2010 [id number] [phone] OLESYA REDDY PATIENT CIGNA MEDICARE SUPPLEMENT MEDICARE SUPPLEMEN RADHIKA MEDIC ARE SUPPL EMENT Jun 22, 2016 PLAN [place] BASIC [id number] OLESYA REDDY PATIENT MEDICARE (WNR) MEDICARE (M) PART A May 22, 2010 PART A [id number] OLESYA REDDY PATIENT MEDICARE (WNR) MEDICARE (M) PART B May 22, 2010 PART B [id number] OLESYA REDDY PATIENT MEDICARE (WNR) MEDICARE (M) PART A May 22, 2010 PART A [id number] OLESYA REDDY PATIENT MEDICARE (WNR) MEDICARE (M) PART B May 22, 2010 PART B [id number] OLESYA REDDY PATIENT Selected Encounter This section includes the information on record at [place] for the Encounter. Date/Time Encounter Type Encounter Description Reason Provider Source Jan 11, 2024 10:53 AM Outpatient Encounter TELEPHONE TRIAGE JED LOPEZ Encounter Template Text not used by [place] Plan of Treatment: Future Appointments (+ 6 months) and Future Tests (+/- 45 days) The Plan of Treatment section includes future care activities for the patient from [facility] [place] [facility] This section includes future appointments and future [...] 13, 2024 08:11 AM [facility] Apr 19, 2024 01:10 PM AMBULATORY - NONE [facility] Active, Pending, and Scheduled Orders This section includes a listing of several types of active, pending, and scheduled orders, including clinic medications orders, diagnostic test orders, procedure orders and consult orders; where the start date of the order is 45 days before the date of the Encounter or 45 days after the date of theEncounter. The data comes from all [place] treatment facilities. Test Date/Time Test Type Test Details Facility Name Jan 13, 2024 04:15 PM Consult Order COMMUNITY CARE-ORTHO SURG Cons Donor Services Coordinator's Choice [facility] Social History: Smoking Status (Most [...] 18, 2023 03:06 PM VA-TOBACCO NEVER USED [facility] Tobacco Use History This section includes a history of the smoking, or tobacco-related health factors, that were collected on or before the date of the Encounter. The data comes from the [place] facility where the Encounter took place. Date/Time Smoking Status/Tobacco Use Comment Raman rice Mar 04, 2021 12:55 PM VA-TOBACCO NEVER USED [facility] Advance Directives: All historical and current Section Date Range: From patient's date of to the date document was created. This section includes ALL of a patient's completed or amended [place] Advance and Rescinded Directives. The entries below indicate that a directive exists for the patient, but an actual copy is not included with this document. The data comes from all [facility]. Date Advance Directives Provider Source Oct 08, 2021 ADVANCE DIRECTIVE DISCUSSION Patsy PINK [facility] Oct 08, 2021 ADVANCE DIRECTIVE KRISTINE PINK [employer] Jun 27, 2011 ADVANCE DIRECTIVE DISCUSSION KENYA AVILA [facility] Jun 27, 2011 ADVANCE DIRECTIVE KENYA AVILA [facility] Radiology Reports: +/- 30 days of [...] the Encounter. The data comes from all [place] treatment facilities. Date/Time Radiology Report Provider Source Jan 11, 2024 01:12 PM NON VA KNEE LEFT: OLESYA REDDY [id number] -1945 M Ex Date: JAN 11, 2024@13:12 Req Phys: GAURAV IYER Pat Loc: [facility] XRAY GENERAL AM (Req'g Loc Img Loc: OUTSOURCE MAIN X-RAY Service: Unknown (Case [id number] COMPLETE) NON VA KNEE LEFT (RAD Detailed) CPT:39976 Reason for Study: OUTSIDE STUDY Clinical History: OUTSIDE STUDY Report Status: Electronically Filed Date Reported: JAN 13, 2024 Report: This is an outside Imaging study and/or report imported for continuity of patient care. This Imaging study and/or report was not reviewed or verified by a [place] Radiologist. Impression: This is an outside Imaging study and/or report imported for continuity of patient care. This Imaging study and/or report was not reviewed or verified by a [place] Radiologist. Primary Diagnostic Code: VERIFIED BY: / *ELECTRONICALLY FILED* [facility] Encounter Notes: All associated encounter notes This section contains the clinical notes associated to the Encounter. Date/Time Encounter Note(s) Provider Source Jan 11, 2024 10:53 AM RN PROGRESS NOTE: LOCAL TITLE: CCC: CLINICAL TRIAGE STANDARD TITLE: RN PROGRESS NOTE DATE OF NOTE: JAN 11, 2024@10:53:34 ENTRY DATE: JAN 11, 2024@10:53:34 AUTHOR: JED LOPEZ COSIGNER: URGENCY: STATUS: COMPLETED Patient Demographics Patient Name: OLESYA REDDY Patient Primary Address: [address] [place] [address] [address] [place] [address] Patient Primary Phone: [phone] Patient : 1945 Patient Age: 78 Caller/Recipient Relation to Patient: Self Emergency Contact: GRACE REDDY Triage Summary Conducted triage/discussed symptoms Pain Score: 4 Utilized the Triage Tool: Yes Chief Complaint: Knee Injury System WHEN: Within 3 Days Nurse's Recommendation / WHEN: Within 3 Days System WHERE: Clinic Nurse's Recommendation / WHERE: [facility]gent [facility] Patient Disposition Patient/Caregiver agrees to plan of care: Yes Nursing Plan and Disposition Referred patient to higher level of care Instructed to go to Urgent Care (UC) Advised of [place] [facility] Benefits Other Other Description: Given [place] Change Release Manager number to find the closest in network UC to him. Other course(s) of action Provided guidance for worsening symptoms: *Caller/Patient* advised to call facilities [place] Clinical Contact Center or seek immediate medical attention for new or worsening symptoms Nurse Summary Nurse Summary: PATIENT CONCERN/DURATION/ONSET: c/o injury to the LEFT knee 5 days ago when he was lifting furniture and the LEFT knee ''buckled'' laterally. He reports the knee has some swelling to the lateral and medial sides, denies any redness or heat to the knee. He complains of pain at ''4''/10 at its worst, some slight discomfort when walking and he is limping. WHAT HAS PATIENT TRIED TO TREAT THE SYMPTOMS: spoke to son who is an orthopedic surgeon and was told he will need x-rays of the knee. HISTORY/PREVIOUS TREATMENT: DJD, HTN, HLD, Osteoarthritis WHAT IS PATIENT GOAL FOR THE CALL: [place]ero requesting to have knee x-rays done at a clinic close to him - he is presently at his address in [place], [place]. Was Care Now considered (TELE or VVC)? 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 [facility] declined appointment with PCP as it is over 3 hours from him, he is requesting to be seen at a closer clinic. Informed the availability approved Network Urgent Care under the [place]. Estero provided with [place] [employer] block placer number [phone], Press 1 for [place], Press 5 for location of UC/Pharmacy approved under [place] nearest them. Advised they will not pay a copayment at time of visit. A network UC provider may write a prescription for up to a 14-day supply. Call [phone] while at either facility if any issues arise. In ineligible, encouraged to seek care at nearest [facility] ER. May use local ER without guarantee of payment; provided with 72 hour non-VA ER Community Care # of [phone]. Estero verbalizes understanding. Best contact for is (Verified). also questioned how he could get a referral to an orthopedic if he should need one. He agrees to be seen at and if they recommend orthopedics, was instructed to call back to the triage line to request [facility] referral. Verbalized understanding. This note was created by a [facility] mobile device engineer. Please do not alert this nurse by adding as a signer for future communications. Alerts are not monitored by this user, please reach out to [facility] Leadership instead if indicated. Clinical Contact Center Codes Clinic/Location: [facility]SP PHONE CCC RN TXCC Triage Complete Triage Date: 01/11/2024, 10:51 AM Triage Note: Phone Triage 11 Jan 2024 15:29:15 +0000 [facility] Demographics 78 y/o Male Results CC: Knee Injury Software suggested: Within 3 Days Software suggested follow-up location: Clinic, consider [facility] care Values and Measures Duration of CC: 5 Days Positive Responses HPI: knee swelling, worsening, since the injury Negative Responses Denies: HPI: decreased range of motion in knee, unable to flex to 90 degrees since injury Denies: HPI: fibular tenderness, severe Denies: HPI: foot drop, since the injury Denies: HPI: knee erythema, worsening, since the injury Denies: HPI: knee injury, unable to move knee, since the injury Denies: HPI: knee injury, within past 2 days Denies: HPI: knee pain, severe Denies: HPI: knee pain, worsening, since the injury Denies: HPI: leg weakness, since the injury Denies: HPI: numbness, foot or leg, since the knee injury Denies: HPI: patellar tenderness, severe Denies: HPI: unable to bear weight on injury Denies: HPI: wound, skin penetration [facility] Education Verbal Education Provided for: Knee Injury Home Care Education Log Notify your provider if you have a knee injury and any of the following: Worsening knee pain Tenderness over the bones of the knee Worsening knee swelling /es/ DEMETRA DÍAZ, RN REGISTERED NURSE, 3 [facility] Signed: 01/11/2024 10:53 JED LOPEZ [facility]
--- OUTSIDE RECORDS SUMMARY | 2024-06-08 11:00 | XMS_ITS | Encounter Summary ---
Author Name [facility] [place] [facility] [place] [facility] [place] Address [address] [place] [address] Care Team Providers Care Firebrick And Refractory Tile Repairer Name Role Phone GAURAV IYER Primary Care [...] Name Patient's Relationship to Policy Cazares BCBS [facility] (WNR) MEDICARE ADVANTAGE [facility] (WN) Jun 22, 2022 [id number] [phone] OLESYA REDDY PATIENT CIGNA RETIREE ALLIA [employer] May 22, 2010 [id number] [phone] OLESYA REDDY PATIENT CIGNA MEDICARE SUPPLEMENT MEDICARE SUPPLEMEN [employer]HIKA MEDIC ARE SUPPL EMENT Jun 22, 2016 PLAN [place] BASIC [id number] OLESYA REDDY PATIENT MEDICARE (WNR) MEDICARE (M) PART A May 22, 2010 PART A [id number] OLESYA REDDY PATIENT MEDICARE (WNR) MEDICARE (M) PART B May 22, 2010 PART B [id number] OLESYA REDDY PATIENT MEDICARE (WNR) MEDICARE (M) PART A May 22, 2010 PART A [id number] 40A OLESYA REDDY PATIENT MEDICARE (WNR) MEDICARE (M) PART B May 22, 2010 PART B [id number] 40A OLESYA REDDY PATIENT Selected Encounter This section includes the information on record at [place] for the Encounter. Date/Time Encounter Type Encounter Description Reason Provider Source Jan 13, 2024 08:11 AM Outpatient Encounter ADMIN PAT ACTIVTIES (MASNONCT) SHYANN MCCULLOUGH Encounter Template Text not used by [place] Plan of Treatment: Future Appointments (+ 6 months) and Future Tests (+/- 45 days) The Plan of Treatment section includes future care activities for the patient from all [place] treatmentfacilities. This section includes future appointments and future orders which are active, pending or scheduled. Future Appointments This section includes appointments that were scheduled to occur 6 months from the date of the Encounter, up to a maximum of 20 appointments. The data comes from all [place] treatment facilities. Appointment Date/Time Appointment Type Appointme nt Facility Name Apr 19, 2024 01:10 PM [facility] Active, Pending, and Scheduled Orders This section includes a listing of several types of active, pending, and scheduled orders, including clinic medications orders, diagnostic test orders, procedure orders and consult orders; where the start date of the order is 45 days before the date of the Encounter or 45 days after the date of theEncounter. The data comes from all [place] treatment [facility]. Test Date/Time Test Type Test Details Facility Name Jan 13, 2024 04:15 PM Consult Order COMMUNITY CARE-ORTHO SURG Cons Entry Level Java Developer's Choice [facility] Social History: Smoking Status (Most current) and Tobacco Use (All prior to encounter date) This section includes the most current, and the historical, smoking and tobacco- related health factors from the [place] facility where the Encounter took place. Current Smoking Status This section includes the most current smoking, or tobacco-related health factor, from the [place] facility where the Encounter took place. Date/Time Current Smoking Status Comment Garett rowley Sep 18, 2023 03:06 PM VA-TOBACCO NEVER USED [facility] Tobacco Use History This section includes a history of the smoking, or tobacco-related health factors, that were collected on or before the date of the Encounter. The data comes from the [place] facility where the Encounter took place. Date/Time Smoking Status/Tobacco Use Comment F acility Mar 04, 2021 12:55 PM VA-TOBACCO NEVER USED [facility] Advance Directives: All historical and current Section Date Range: From patient's date of to the date document was created. This section includes ALL of a patient's completed or amended [place] Advance and Rescinded Directives. The entries below indicate that a directive exists for the patient, but an actual copy is not included with this document. The data comes from all [facility]. Date Advance Directives Provider Source Oct 08, 2021 ADVANCE DIRECTIVE [facility]INE [facility]INK [facility] Oct 08, 2021 ADVANCE DIRECTIVE DISCUSSION Patsy PINK [facility] Jun 27, 2011 ADVANCE DIRECTIVE DISCUSSION KENYA AVILA [facility] Jun 27, 2011 ADVANCE DIRECTIVE KENYA AVILA [facility] Radiology Reports: +/- 30 days of [...] the Encounter. The data comes from all [place] treatment facilities. Date/Time Radiology Report Provider Source Jan 11, 2024 01:12 PM NON [place] KNEE LEFT: OLESYA REDDY [id number] -1945 M Ex Date: JAN 11, 2024@13:12 Req Phys: GAURAV IYER Pat Loc: [facility]SP XRAY GENERAL AM (Req'g Loc Img Loc: OUTSOURCE MAIN X-RAY Service: Unknown (Case [id number] COMPLETE) NON [place] KNEE LEFT (RAD Detailed) CPT:41022 Reason for Study: OUTSIDE STUDY Clinical History: OUTSIDE STUDY Report Status: Electronically Filed Date Reported: JAN 13, 2024 Report: This is an outside Imaging study and/or report imported for continuity of patient care. This Imaging study and/or report was not reviewed or verified by a [place] Radiologist. Impression: This is an outside Imaging study and/or report imported for continuity of patient care. This Imaging study and/or report was not reviewed or verified by a [place] Radiologist. Primary Diagnostic Code: VERIFIED BY: / *ELECTRONICALLY FILED* [facility] Encounter Notes: All associated encounter notes This section contains the clinical notes associated to the Encounter. Date/Time Encounter Note(s) Provider Source Jan 13, 2024 11:56 AM ADDENDUM: LOCAL TITLE: Addendum STANDARD TITLE: ADDENDUM DATE OF NOTE: JAN 13, 2024@11:56:01 ENTRY DATE: JAN 13, 2024@11:56:01 AUTHOR: JEAN ELLIS COSIGNER: URGENCY: STATUS: COMPLETED was seen in a Community ED. Records uploaded to chart. Please review and follow up as appropriate. /brissa/ JEAN ELLIS ...Advanced Floor Clerk Signed: 01/13/2024 11:56 Receipt Acknowledged By: 01/13/2024 12:32 /es/ GAURAV IYER MD STAFF PHYSICAN 01/14/2024 11:24 /es/ ISAIAH ORTIZ RN REGISTERED NURSE --- Original Document --- 01/11/24 [facility] PRESENTING CARE COORD PLAN NOTE: Emergency Notification Intake Date Presenting to the Facility: Dec Method of Contact: Submitted to Centralized Call Center Notification ID: [id number] [facility] Referral #: [facility] Name: Hospital: [facility] Address: [address] City: [place] State: [place] Zip Code: [address] Phone : [facility] Point of Contact: Name: [facility] Chief complaint: KNEE PAIN Primary Diagnosis: Disposition Unknown at time of intake note entry /phoenix SALVADOR WORKING FOREMAN (AOD) Signed: 01/13/2024 08:15 Receipt Acknowledged By: 01/13/2024 10:33 /brissa/ SHYANN MCCULLOUGH RN replanting machine crew Title 1 Tutor 01/11/2024 ADDENDUM STATUS: COMPLETED VistA Imaging Scanned Document - Addendum. ED records 01/11/2024 [facility] SCANNED DOCUMENT SIGNATURE NOT REQUIRED Electronically Filed: 01/13/2024 by: JEAN KirklandAdvanced Floor Clerk JEAN ELLIS [facility] Jan 11, 2024 08:11 AM NONVA NOTE: LOCAL TITLE: COMMUNITY CARE-JO ANN SELF PRESENTING CARE COORD PLAN STANDARD TITLE: NONVA NOTE DATE OF NOTE: JAN 11, 2024@08:11 ENTRY DATE: JAN 13, 2024@08:11:53 AUTHOR: TARIQ SALVADOR COSIGNER: URGENCY: STATUS: COMPLETED COMMUNITY CARE-JO ANN SELF PRESENTING CARE COORD PLAN NOTE Has ADDENDA Emergency Notification Intake Date Presenting to the Facility: Dec Method of Contact: Submitted to Centralized Call Center Notification ID: [id number] [facility] Referral #: [facility] Name: Hospital: [facility] Address: [address] [place] [address] City: [place] State: [place] Zip Code: [address] Phone : [facility] Point of Contact: Name: [facility] Chief complaint: KNEE PAIN Primary Diagnosis: Disposition Unknown at time of intake note entry /brissa/ TARIQ SALVADOR WORKING FOREMAN (AOD) Signed: 01/13/2024 08:15 Receipt Acknowledged By: 01/13/2024 10:33 /brissa/ SHYANN MCCULLOUGH RN replanting machine crew Title 1 Tutor 01/11/2024 ADDENDUM STATUS: COMPLETED VistA Imaging Scanned Document - Addendum. ED records 01/11/2024 [facility] SCANNED DOCUMENT SIGNATURE NOT REQUIRED Electronically Filed: 01/13/2024 by: JEAN KirklandAdvanced Floor Clerk 01/13/2024 ADDENDUM STATUS: COMPLETED was seen in a Community ED. Records uploaded to chart. Please review and follow up as appropriate. /brissa/ JEAN ELLIS ...Advanced Floor Clerk Signed: 01/13/2024 11:56 Receipt Acknowledged By: * AWAITING SIGNATURE * GAURAV IYER * AWAITING SIGNATURE * ISAIAH ORTIZ [facility]
--- OUTSIDE RECORDS SUMMARY | 2024-06-08 11:00 | XMS_ITS | Encounter Summary ---
Author Name [facility] [facility] [place] [facility] [place] Address [address] [place] [address] Care Team Providers Care Records Management Engineer Name Role Phone GAURAV IYER Primary Care [...] to Policy [employer] BCBS [facility] (WNR) MEDICARE ADVANTAGE [facility] ([facility]) Jun 22, 2022 [id number] [phone] OLESYA REDDY PATIENT CIGNA RETIREE [employer] 5th Finger May 22, 2010 [id number] OLESYA REDDY PATIENT CIGNA MEDICARE SUPPLEMENT MEDICARE SUPPLEMEN RADHIKA MEDIC ARE SUPPL EMENT Jun 22, 2016 PLAN MD BASIC [id number] OLESYA REDDY PATIENT MEDICARE (WNR) MEDICARE (M) PART B May 22, 2010 PART B [id number] [phone] OLESYA REDDY PATIENT MEDICARE (WNR) MEDICARE (M) PART A May 22, 2010 PART A [id number] [phone] OLESYA REDDY PATIENT MEDICARE (WNR) MEDICARE (M) PART A May 22, 2010 PART A [id number] [phone] OLESYA REDDY PATIENT MEDICARE (WNR) MEDICARE (M) PART B May 22, 2010 PART B [id number] [phone] OLESYA REDDY PATIENT Selected Encounter This section includes the information on record at [place] for the Encounter. 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 Date/Time Primary/Secondary Diagnosis Diagnosis Name Provider Source Sep 21, 2023 02:13 PM PRIMARY Carcinoma in situ of prostate ANGIE IYERD [facility] Sep 21, 2023 02:13 PM SECONDARY Calculus of kidney GAURAV IYER [facility] Sep 21, 2023 02:13 [...] care activities for the patient from all [place] treatmentfacilities. This section includes future appointments and future orders which are active, pending or scheduled. Future Appointments This section includes appointments that were scheduled to occur 6 months from the date of the Encounter, up to a maximum of 20 appointments. The data comes from all [place] treatment facilities. Appointment Date/Time Appointment Type Appointme nt Facility Name Jan 13, 2024 08:11 AM AMBULATORY - [facility] Lab Results: +/- 30 days of the encounter This section includes the Chemistry and Hematology Lab Results on record with [place] for the patient. Radiology Reports and Pathology Reports are provided separately, in subsequent sections. Lab Results This section contains the Chemistry/Hematology Results that were resulted 30 days before or 30 daysafter the date of the Encounter. Date/Time Source Result Type Result - Unit Interpretation Reference Range Comment Sep 18, 2023 09:46 AM [facility] HEMOGLOBIN A1C Specimen Type: BLOOD Comment: Values [...] Aug 05, 2023 05:03 PM Reporting Lab: [facility] [id number] Performing Lab: [facility] [id number] HEMOGLOBIN A1C 5.3 4.0-6.0 Sep 18, 2023 09:46 AM [facility] PSA Specimen Type: SERUM No comment entered. Ordering Provider: GAURAV IYER Report Released Date/Time: Aug 05, 2023 05:03 PM Reporting Lab: [facility] [id number] Performing Lab: [facility] [address] PSA <0.01 ng/mL <4.00 Sep 18, 2023 09:46 AM [facility] TSH W/REFLEX TO FREE T4 Specimen Type: PLASMA No comment entered. Ordering Provider: GAURAV IYER Report Released Date/Time: Aug 05, 2023 05:03 PM Reporting Lab: [facility] [address] Performing Lab: [facility] [address] TSH 1.61 u[IU]/mL 0.35-4.94 Sep 18, 2023 09:46 AM [facility] COMPREHENSIVE METABOLIC PANEL+MG Specimen Type: PLASMA No comment entered. Ordering Provider: GAURAV IYER Report Released Date/Time: Aug 05, 2023 05:03 PM Reporting Lab: [facility] [address] Performing Lab: [facility] [address] CREATININE 1.0 mg/dL 0.7-1.2 UREA NITROGEN 19 [...] 25 U/L <34 .CREAT EGFR(CKD-EPI) 77 >60 Sep 18, 2023 09:46 AM [facility] LIPID PANEL,NON-FASTING Specimen Type: PLASMA No comment entered. Ordering Provider: GAURAV IYER Report Released Date/Time: Aug 05, 2023 05:03 PM Reporting Lab: [facility] [address] Performing Lab: [facility] [address] CHOLESTEROL 174 mg/dL <199 .HDL 46 mg/dL >40 LDL CALCULATION 96 mg/dL <99 VLDL CALCULATION 32 mg/dL H <29 NON HDL CHOLESTEROL 128 mg/dL <129 TRIG(NON FASTING) 162 mg/dL H <149 Vital Signs: All taken on the encounter date This section contains inpatient and outpatient Vital Signs collected on the date of the Encounter. Date/Time Temperature Pulse Blood Pressure Respiratory Rate SP02 Pain Height Weight Body Mass Index Source Sep 21, 2023 01:43 PM 151/97 [facility] Sep 21, 2023 01:38 PM 97.4 64 162/96 17 96 0 68.5 206.2 31 [facility] Social History: Smoking Status (Most current) and Tobacco Use (All prior to encounter date) This section includes the most current, and the historical, smoking and tobacco- related health factors from the [place] facility where the Encounter took place. Current Smoking Status This section includes the most current smoking, or tobacco-related health factor, from the [place] facility where the Encounter took place. Date/Time Current Smoking Status Comment Facil amrik Apr 30, 2022 01:00 PM VA-TOBACCO NEVER USED [facility] Tobacco Use History This section includes a history of the smoking, or tobacco-related health factors, that were collected on or before the date of the Encounter. The data comes from the [place] facility where the Encounter took place. Date/Time [...] ALL of a patient's completed or amended [place] Advance and Rescinded Directives. The entries below indicate that a directive exists for the patient, but an actual copy is not included with this document. The data comes from all [place] facilities. Date Advance Directives Provider Source Oct 08, [address] [facility] Oct 08, 2021 ADVANCE DIRECTIVE DISCUSSION Patsy PINK [facility] Jun 27, 2011 ADVANCE DIRECTIVE DISCUSSION KENYA AVILA [facility] Jun 27, 2011 ADVANCE DIRECTIVE KENYA AVILA [facility] Encounter Notes: All associated encounter notes This [...] comanaged with Amarilis López/ Suad Still at [place] Known h/o prostate cancer, HTN, HL, osteoarthritis, ED No new health issues or medications. 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) Kidney stone ([facility] 84288667) Prostate cancer ([facility] 210478244) Inguinal hernia, without mention of obstruction or gangrene (ICD-9-CM 550.90) Osteoarthritis ([facility] 107347804) Pain in joint involving shoulder region (ICD-9-CM 719.41) F5 (Coagulation factor V) (eg, HereditarBenign essential hypertension ([facility] 5608754) Hyperlipidemia ([facility] 83291846) History of male erectile disorder ([facility] 739642621) Partner relationship problem ([facility] 835510Zatieedz to potentially hazardous substance ([facility] [id number]) Allergies: BEE STINGS (Aug 16, 2012) Active [...] NT Extremities:No edema Data/Labs: The OBJECT HEMOGLOBIN T6W--LNL is INACTIVE...Contact IRM. Lipids: CHOLESTEROL 174 (09/18/23) [...] care comanaged care - LMD Dr Ang [[facility] . Also followed by multiple subspecialists in community HTN currently on lisinopril /hctz BP borderline But home BP reported optimal Feels his home monitor us accurate. He will monitor home BP and CB if elevated. H/o Nephrolithisis inital episode 05/2006 requiring cystoscopic removal. Then had another spell 6 mm stone which required removal again by Urogoist at [facility] Had another episode in 07/2016 when sponatneously passed 3 mm stone. He seen Urologist at [facility] . Another ureteroscopy in december [address] Quiroz at [facility] in [facility] removed a 10 mm stone. Most recent intervention in October 2020 required Cystourethroscopy with retrograde pyelogram, holmium laser lithotripsy of urethral calculus with stent on left. He stays well hydrated. Urine and stone analysis was done through Urologist also H/o Bee sting allergy Dx after allergy testing in 1998.Recieved desensitization through [facility] in [id number]. Carries Epipen. HL Now on atorvastatin Tolerating well. Recent LDL optimal CaP s/p Radical prostatectomy in 11/2004- Dr Palmer of [facility]. His PSA stable [low] Seen urology in community. PSA < 0.01. 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 He has seen orthopedics at [place]. Then seen Dr Viramontes at [facility] for second opinion. 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 TKA in 2009 by Ezequiel Manning in [place], [place] Doing well. No recent knee injection [...] Followed by optho at [facility] - Dr Barak Cowan [[facility]]Uses prednisolone eye drops Colon polyp - adenomatous Removed in 04/2013 At [facility][Dr Sis Archer]. F/u in 04/2018 No polyps removed but advised f/u after 5 years.He declined f/u /brissa/ GAURAV IYER MD STAFF PHYSICAN Signed: 09/21/2023 14:13 GAURAV IYER [facility] Sep 21, 2023 01:40 PM PRIMARY CARE NURSI MALICK NOTE: LOCAL TITLE: [facility] NURSING PROGRESS NOTE STANDARD TITLE: PRIMARY CARE NURSING NOTE DATE OF NOTE: SEP 21, 2023@13:40 ENTRY DATE: SEP 21, 2023@13:41 AUTHOR: JERRY,HIEN R EXP COSIGNER: URGENCY: STATUS: COMPLETED TYPE OF VISIT: Appointment Check In Type of appointment: In-person appointment REASON FOR VISIT: Annual. Comanged [facility]. ALLERGIES: BEE STINGS (Aug 16, 2012) [...] TABLET MOUTH EVERY DAY ACTIVE Non-VA ZZINV-PAXLOVID 873ADF5/553HLD3 DAILY PKT ACCORDING ACTIVE TO DIRECTIONS IN PACKAGE MOUTH TWICE A DAY Over the Counter/Herbal Medications: The patient states that they take some outside medications and/or herbals. Suicide Screen: C-SSRS Screening Ross Suicide Severity Rating Scale (C-SSRS) screener 1. [...]
[2024-06-08] MEDS: SODIUM CHLORIDE 0.9 % (FLUSH) 10 ML SYRINGE IVF (11:53)
[2024-06-08] MEDS: ACETAMINOPHEN 500 MG TABLET 1000 MG PO ×3 (11:53→23:57)
[2024-06-08] MEDS: LACTATED RINGERS 1000 ML 1,000 ML 100 ML IV (11:54)
[2024-06-08] MEDS: OXYCODONE (CR) 10 MG TAB.ER.12H PO (11:54)
[2024-06-08] MEDS: MIDAZOLAM HCL 1 MG/ML inj IVP (13:00)
[2024-06-08] MEDS: fentaNYL 100 MCG/2 ML inj IVP (13:00)
--- NOTE | 2024-06-08 13:09 | SUR.PREOP ---
TIME?OUT:?1300 PT/RN/MDA?VERIFICATION?OF?SURGICAL?SITE,?PROCEDURE,?AND?CONSENT OBTAINED?PRIOR?TO?INVASIVE?PROCEDURE.
--- NOTE | 2024-06-08 13:14 | SUR.PREOP ---
TIME?OUT:?1300 PT/RN/MDA?VERIFICATION?OF?SURGICAL?SITE,?PROCEDURE,?AND?CONSENT OBTAINED?PRIOR?TO?INVASIVE?PROCEDURE.
[2024-06-08] MEDS: CEFAZOLIN 2 GM in 0.9 % SODIUM CHLORIDE Mini-bag 100 ML IVPB ×2 (13:30→19:29)
--- NOTE | 2024-06-08 13:35 | P.ORPRC_ITS ---
Procedure Note Date of procedure: 06/08/24 Procedure: PREOPERATIVE DIAGNOSIS: 1. Left knee osteoarthritis, primary, severe POSTOPERATIVE DIAGNOSIS: 1. Left knee osteoarthritis, primary, severe PROCEDURE: 1. Left total knee arthroplasty - subvastus SURGEON: Kirk Martinez MD. RESEARCH PROFESSOR: SHEREE Case - Of note, a skilled chef's assistant was critical for this case to aid in patient positioning, tissue retraction, limb manipulation/positioning, and closure. ANESTHESIA: Spinal anesthetic EBL: 50ml IMPLANTS: DePuy J&J all cemented TKA - Attune PS femur size 8 Size 7 tibia 5 mm poly spacer 41mm patella TOURNIQUET: 90 min at 300 torr COMPLICATIONS: None evident INDICATIONS: The patient is a pleasant 78-year-old male he who has experienced severe left knee pain and difficulty bearing weight. Workup included x-rays which revealed severe osteoarthrosis in the knee. Given the deformity, the dysfunction, and the pain, as well as the failure of nonoperative management, recommendation was made for surgery. FINDINGS: Full-thickness chondral loss diffusely throughout the medial and lateral femoral condyle. Degenerative meniscus pathology medial greater than lateral. Large effusion upon entering the joint. Degenerative meniscus pathology patellofemoral compartment as well. Very dense hard bone making the saw work very hard. DESCRIPTION OF PROCEDURE: Following a thorough discussion of risks, benefits, and alternatives consent was obtained and the left knee was marked. The patient was brought to the operating room and placed supine on the operating table. Induction of anesthesia was undertaken. 2 g IV Ancef and 1 g tranexamic acid was administered within 1 hr of incision preoperatively. Proper time-out was performed identifying proper patient, site, procedure. The operative extremity was prepped and draped in the appropriate sterile fashion using ChloraPrep after the patient was positioned supine with all bony prominences well padded. A longitudinal, anterior, midline skin incision was made starting approximately 3cm proximal to the superior pole of the patella and advanced distal to the tibial tubercle. A subvastus approach was utilized. A medial subperiosteal sleeve was created with knife, traore elevator and curved osteotome. The retropatellar fatpad was resected and the synovium in the suprapatellar pouch excised to visualize the anterior femoral cortex. Femoral preparation was performed via an intramedullary guide. Step drill allowed access into the femoral canal. The distal cutting guide was placed with 5? of valgus and 10 mm cut on the distal femur. Femur was sized using a posterior referencing guide in 3? of external rotation. This found have a best fit with the sizing noted above. The 4 in 1 cutting block was then placed, and the distal femur shaped accordingly. The box cut was then created and the trial implant inserted to confirm appropriate fit. We turned our attention to the proximal tibia. Extramedullary guide was utilized for cutting with the goal of being 90 degree cut from the mechanical axis of the tibia in the varus/valgus plane utilizing tibial crest as the primary alignment. Initially a 2 mm resection was performed from the medial tibial plateau. Ultimately, balancing was achieved in both flexion and extension in both varus and valgus. The knee was able to achieve full extension as well comfortably. The patella was initially measured and found have a thickness of 25 mm. It was resected back to approximately 15 mm. It was sized to be a best fit with as noted above. This was drilled, trial placed. All trials were placed and found to have an excellent stability and balance. At this stage, trial implants were removed, the knee was thoroughly irrigated with normal saline, and the cement was mixed. After irrigation, the knee was thoroughly dried, and cement placed, with the real tibial and femoral implants placed along with the patella. Trial poly spacer was placed and confirmed to have excellent range of motion and full extension, and the real poly spacer opened and inserted. All extra cement was removed, and a 3 min Betadine soak performed. Finally, a final irrigation round with normal saline was performed. Closure performed with 0 PDS and #0 Stratafix for the quad tendon/retinaculum. 2-0 Vicryl/Stratafix for the subcutaneous and 4-0 Monocryl for subcuticular closure. Dressings were applied and the patient was awoken from anesthesia after the tourniquet deflated and transferred the PACU in stable condition. A skilled chef's assistant was critical for this case to aid in patient positioning, tissue retraction, bone exposure, limb manipulation/positioning, patient safety, and closure. PLAN: 1. Weight bear as tolerated operative extremity. 2. 23 hr perioperative antibiotics. 3. Ice. 4. PT/OT consults for ambulation assistance/mobility education. 5. Social work consult for discharge planning. 6. DVT prophylaxis with at SCDs and Eliquis (given history of factor 5 Leiden mutation) times 2 weeks and then transition to aspirin b.i.d. x2 weeks.
--- NOTE | 2024-06-08 13:35 | W.PM.H&PU ---
History & Physical Update History & Physical Update H&P Reviewed and patient assessed: No changes noted
--- NOTE | 2024-06-08 13:38 | CRLHL7_ITS ---
For Patients: As a result of the Cures Act, medical imaging exams and procedure reports are released immediately into your electronic medical record. You may view this report before your referring provider. If you have questions, please contact your health care provider. Indication: post op TKA Technique: Two views left knee Findings/Impression: Hardware from a left total knee arthroplasty is in satisfactory position. Bone alignment is normal. No sign of acute fracture. Postop changes are within normal limits. Dictated by Barak Iqbal MD @ 06/09/2024 10:15:12 AM (Electronically Signed)
[2024-06-08] MEDS: TRANEXAMIC ACID 100 MG/ML INJ 1000 MG IV (13:40)
--- NOTE | 2024-06-08 15:20 | W.ANESCHARGE ---
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
--- NOTE | 2024-06-08 15:24 | W.ANESCHARGE ---
Anesthesia Charges Start Date/Time Anesthesia Start Date: 06/08/24 Anesthesia Start Time: 13:24 Stop Date/Time Anesthesia Stop Date: 06/08/24 Anesthesia Stop Time: 15:16 Summary Extremes of Age - Over 70 or under 1: MDA
--- NOTE | 2024-06-08 15:24 | W.PM.NB ---
Nerve Block Nerve Block Time Seen by Provider: 13:05 Date Seen: 06/08/24 Type of block requested by surgeon for post-operative analgesia: adductor canal Side: left Time out performed: Yes Verification of patient name: Yes Verification of date of : Yes Site marking: site marked Name of person performing procedure: Dex Continuous monitoring Was continuous monitoring of O2 sat, B/P, cardiac cath lab technologist, recorded every 15 minutes?: Yes Procedure Checklist: sterile prep, needles and gloves Ultrasound guided. Images saved: Yes Medications given in 5ml increments after negative aspiration: Marcaine %: 0.25 mL: 15 Needle gauge: 20 Precedex (mcg): 25 Patient tolerated procedure well: Yes Block Charges Block Charge (with Pro Fee): Femoral Nerve Use of Ultrasound Machine for Block: Yes- US Guidance/pain block
--- NOTE | 2024-06-08 15:25 | W.PM.NB ---
Nerve Block Nerve Block Time Seen by Provider: 13:05 Date Seen: 06/08/24 Type of block requested by surgeon for post-operative analgesia: geniculars Side: left Time out performed: Yes Verification of patient name: Yes Verification of date of : Yes Site marking: site marked Name of person performing procedure: Dex Continuous monitoring Was continuous monitoring of O2 sat, B/P, energy trading analyst, recorded every 15 minutes?: Yes Procedure Checklist: sterile prep, needles and gloves Ultrasound guided. Images saved: Yes Medications given in 5ml increments after negative aspiration: Marcaine %: 0.25 mL: 9 Needle gauge: 25 Patient tolerated procedure well: Yes Block Charges Block Charge (with Pro Fee): Genicular Nerve Block
--- NOTE | 2024-06-08 15:57 | SUR.PHASEI ---
patient met discharge criteria per anesthesia
[2024-06-08] MEDS: LACTATED RINGERS 1000 ML 1,000 ML 75 ML IV (16:53)
--- NOTE | 2024-06-08 16:54 | P.IMCN_ITS ---
Date of Consult Patient: Other Consult date: 06/08/24 Primary Care Provider: Not a Local Provider Consult Narrative Reason for consult: Medical management of comorbidities Narrative: Randall Collins is a 78 year old male who presented to the hospital today for an elective L TKA with Dr. Martinez of Orthopedic Surgery. There were no surgical or anesthetic complications noted during procedure. Patient's H&P reviewed, PCP is [facility], had preoperative visit with Dr. Mccord locally. Past medical history significant for: Essential HTN, hyperlipidemia, prostate cancer remotely, Factor V Leiden mutation (heterozygous). History of blood clots: No Postoperative plan: Home with - has condo in [place], primary residence in [place], [place]. Review of Systems Status of ROS: Reports: 10 or more systems reviewed and unremarkable except as noted in History and below [facility] Medical History (Updated 06/08/24 @ 17:06 by Kimberly Marie MD) Factor V Leiden ?D68.51 - Activated protein C resistance (ICD-10) Prostate cancer (2004) ?C61 - Malignant neoplasm of prostate (ICD-10) Hyperlipidemia ?E78.5 - Hyperlipidemia, unspecified (ICD-10) Hypertension ?I10 - Essential (primary) hypertension (ICD-10) Surgical History (Updated 06/08/24 @ 17:06 by Kimberly Marie MD) History of left knee replacement ?Z96.652 - Presence of left artificial knee joint (ICD-10) History of prostatectomy (2004) ?Z90.79 - Acquired absence of other genital organ(s) (ICD-10) History of eye surgery (12/14/13) ?Z98.890 - Other specified postprocedural states (ICD-10) H/O hernia repair ?Z98.890 - Other specified postprocedural states (ICD-10) ?Z87.19 - Personal history of other diseases of the digestive system (ICD-10) History of total right knee replacement (11/09/12) ?Z96.651 - Presence of right artificial knee joint (ICD-10) Social History (Updated 04/21/24 @ 11:37 by Eduarda Bruno ~ [facility], [facility]) What is your current living situation?: I presently have a place to live Problems where you live: no known problems In the past 12 months, utilities in danger of being shut off: no In past 12 months, lack of transportation kept you from medical appts, meetings, work, or getting things needed for daily living: no In the past 12 mos, have been you worried that your food would run out before you had money to buy more?: often true In the past 12 mos, the food you bought just didn't last and you didn't have money to buy more?: often true Smoking Status: Never smoker Do you use any of these nicotine containing products: None Second hand tobacco smoke exposure: No How often do you have a drink containing alcohol: never AUDIT-C Alcohol total score: 0 Non-prescribed substance use: denies use Caffeine: Yes (2) How often does anyone, including family, friends and others, physically hurt you : never How often does anyone, including family, friends and others, insult or talk down to you: never How often does anyone, including family, friends and others, threaten you with harm: never How often does anyone, including family, friends and others, scream or curse at you: never service: Yes Health Related Social Needs: food insecurity (Z59.41) Meds Home Medications and Allergies Home Medications ?Medication ?Instructions ?Recorded ?Confirmed ?Type ascorbic acid (vitamin C) 500 mg 1 g PO QDAY 04/21/24 06/08/24 History tablet (Vitamin C) aspirin 81 mg tablet,delayed 81 mg PO QDAY 04/21/24 06/08/24 History release atorvastatin 40 mg tablet 40 mg PO QDAY 04/21/24 06/08/24 History coenzyme Q10 100 mg capsule 100 mg PO QDAY 04/21/24 06/08/24 History (CoQ-10) lisinopril 20 1 tab PO QDAY 04/21/24 06/08/24 History mg-hydrochlorothiazide 12.5 mg tablet multivitamin 1 tab PO QAM 04/21/24 06/08/24 History naproxen sodium 220 mg tablet 440 mg PO BID PRN 04/21/24 06/08/24 History (Aleve) omega 8-qzc-fya-fish oil 1,000 mg 1 cap PO QDAY 04/21/24 06/08/24 History (120 mg-180 mg) capsule (Fish Oil) prednisolone acetate 1 % eye 1 drp ophthalmic (eye) QDAY 04/21/24 06/08/24 History drops,suspension Allergies Allergy/AdvReac Type Severity Reaction Status Date / Time bee venom protein (honey bee) Allergy Verified 06/08/24 11:15 Exam Narrative: Exam Narrative: GEN: Alert HEENT: No scleral icterus CV: RRR, No concerning murmurs, rubs, or gallops R: LCTA bilaterally without concerning wheezing, rales, or rhonchi Ext: wwp, no concerning edema Skin: No concerning skin lesions or rashes on exposed skin Neuro: Nonfocal Psych: Appropriate Const: Vital Signs, click to edit/add: Vital Signs - 24 hr 06/08/24 12:30 06/08/24 13:00 06/08/24 13:05 Temperature 98.7 F 98.7 F Pulse Rate 62 70 76 Respiratory Rate 16 16 16 Blood Pressure 167/101 H 152/97 H 139/89 Pulse Oximetry 97 96 91 Oxygen Delivery Me thod Room Air Nasal Cannula Nasal Cannula Oxygen Flow Rate 2 2 06/08/24 15:13 06/08/24 15:15 06/08/24 15:20 Temperature 97.6 F 97.6 F 97.6 F Pulse Rate 75 89 83 Respiratory Rate 15 13 16 Blood Pressure 78/51 L 108/88 80/59 L Pulse Oximetry 94 95 94 Oxygen Delivery Me thod OxyMask OxyMask OxyMask Oxygen Flow Rate 10 10 10 06/08/24 15:25 06/08/24 15:30 06/08/24 15:35 Temperature 97.6 F 97.6 F 97.6 F Pulse Rate 83 76 76 Respiratory Rate 12 20 15 Blood Pressure 97/87 91/72 89/66 L Pulse Oximetry 93 98 95 Oxygen Delivery Me thod OxyMask Room Air Room Air Oxygen Flow Rate 10 06/08/24 15:40 06/08/24 15:45 Temperature 97.6 F 98 F Pulse Rate 68 65 Respiratory Rate 15 15 Blood Pressure 108/67 107/69 Pulse Oximetry 95 93 Oxygen Delivery Me thod Room Air Room Air Oxygen Flow Rate Assessment and Plan Assessment and plan (1) Hypertension: Status: Acute (2) History of left knee replacement: Problem comment: - 06/08/24Michelle Status: Acute Plan - pain management and prophylaxis per orthopedic surgery team - continue home medications for comorbidities - anticipate routine postoperative course
[2024-06-08] MEDS: OXYCODONE 5 MG TABLET PO (19:21)
[2024-06-08] MEDS: SENNOSIDES 1 TAB TABLET 2 TAB PO (20:49)
[2024-06-08] MEDS: ONDANSETRON 2 MG/ML inj 4 MG IVP (20:49)
[2024-06-08] MEDS: 0.9 % SODIUM CHLORIDE 500 ML IV (21:30)
[2024-06-09 02:10] VITALS: BP 143/100; PULSE 89; RESP 16; TEMP 36.9; O2SAT 94
[2024-06-09] MEDS: CEFAZOLIN 2 GM in 0.9 % SODIUM CHLORIDE Mini-bag 100 ML IVPB (04:12)
[2024-06-09] MEDS: OXYCODONE 5 MG TABLET PO (04:16)
[2024-06-09] MEDS: ACETAMINOPHEN 500 MG TABLET 1000 MG PO (06:04)
--- NOTE | 2024-06-09 06:59 | PC.NURSE ---
Pt is alert and oriented x3. Afebrile. Pt reports 4/10 pain in right knee, pain is being managed with scheduled Tylenol, an ice pack to site and PRN medication. Pt is up SBA with walker and gait belt, voiding, tolerating a regular diet. Pt reports they have not passed gas yet. Bowel sounds are active. ?
[2024-06-09 07:00] VITALS: BP 110/105; PULSE 90; RESP 18; TEMP 36.8; O2SAT 93; O2SAT 96
[2024-06-09 07:09] LABS: Basophils Percent Auto 0.3 % (0.0-3.0); Eosinophils Percent Auto 0.4 % (0.0-7.0); Hematocrit 39.9 % (37.0-53.0); Hemoglobin* 13.6 gm/dL (13.5-17.5); Immature Granulocytes Pct Auto 0.1 %; Lymphocytes Percent Auto 26.5 % (20-44); Mean Corpuscular HGB Conc 34 gm/dL (32-36); Mean Corpuscular Hemoglobin 31 pg (26-34); Mean Corpuscular Volume 92 fL (80-100); Monocytes Percent Auto 14.3 % (0.0-11.0); Neutrophils Percent Auto 58.4 % (42.0-72.0); Platelet Count* 238 K/uL (140-440); RDW Coefficient of Variation % 13.2 % (11.5-15.5); Red Blood Count 4.33 m/uL (4.30-5.90); White Blood Count* 11.39 K/uL (4.50-11.00)
[2024-06-09 07:19] LABS: Slide Review Reflex No
[2024-06-09 07:27] LABS: Potassium* 4.2 mmol/L (3.6-5.1); Sodium* 136 mmol/L (135-149)
[2024-06-09 07:29] LABS: Creatinine* 0.9 mg/dL (0.5-1.5); Est. Creatinine Clearance* 62.86; Estimated Glomerular Filt Rate 87 ml/min
[2024-06-09 07:30] LABS: Blood Urea Nitrogen* 16 mg/dL (7-30)
[2024-06-09] MEDS: ATORVASTATIN CALCIUM 40 MG TABLET PO (08:40)
[2024-06-09] MEDS: CELECOXIB 200 MG CAPSULE PO (08:40)
[2024-06-09] MEDS: lisinopriL 20 MG TABLET PO (08:40)
[2024-06-09] MEDS: TRAMADOL HCL 50 MG TABLET PO (08:41)
[2024-06-09] MEDS: SENNOSIDES 1 TAB TABLET 2 TAB PO (08:41)
--- NOTE | 2024-06-09 12:59 | PC.NURSE ---
Discharge: The patient discharged with his home this afternoon, all S/S and education regarding post op knee replacement was reviewed. L knee dressing CDI, 1+ pitting edema to L knee. Reports that his pain is under control with medications given in the AUG. All belongings and discharge paperwork was sent home with the patient. Rosemary GUERRA BSN
--- NOTE | 2024-06-09 14:19 | PM.ORPN ---
Subjective Subjective Date Seen: 06/09/24 Principal diagnosis: Status postop day 1 left total knee arthroplasty Interval history: Patient reports doing well. No acute events over night. Pain managed with scheduled and PRN medications, ice. DVT prophylaxis: Apixaban 5 mg twice daily for 2 weeks, followed by 81 mg aspirin by mouth twice daily for 2 weeks; SCDs, walking. Denies fevers, chills, aches, N/V, CP, SOB/MAXWELL, or lightheadedness. Expresses some concern about taking oxycodone, and is wondering about tramadol. He was given tramadol, Celebrex, Zofran here at the hospital for pain and nausea. Nausea has since improved. Ortho Exam Narrative Exam Narrative: -Patient appears comfortable; no apparent acute distress -Alert and oriented times 3 -Operative knee mild-moderately swollen; soft tissues supple; no ecchymosis; no erythematous streaking Warmth appropriate -Surgical dressing clean, dry, intact; no drainage -Bilateral calfs soft; no significant swelling, edema, tenderness, erythema, discoloration, warmth, or palpable cords -2+ DP/PT pulses, intact dermatomes and myotomes distally (5/5 strength) Const Vital Signs, click to edit/add: Vital Signs - 24 hr 06/08/24 15:13 06/08/24 15:15 06/08/24 15:20 Temperature 97.6 F 97.6 F 97.6 F Pulse Rate 75 89 83 Pulse Rate [Pulse Oximeter] Respiratory Rate 15 13 16 Blood Pressure 78/51 L 108/88 80/59 L Blood Pressure [Left Arm] Pulse Oximetry 94 95 94 Oxygen Delivery Method OxyMask OxyMask OxyMask Oxygen Flow Rate 10 10 10 06/08/24 15:25 06/08/24 15:30 06/08/24 15:35 Temperature 97.6 F 97.6 F 97.6 F Pulse Rate 83 76 76 Pulse Rate [Pulse Oximeter] Respiratory Rate 12 20 15 Blood Pressure 97/87 91/72 89/66 L Blood Pressure [Left Arm] Pulse Oximetry 93 98 95 Oxygen Delivery Method OxyMask Room Air Room Air Oxygen Flow Rate 10 06/08/24 15:40 06/08/24 15:45 06/08/24 15:53 Temperature 97.6 F 98 F 96 F L Pulse Rate 68 65 65 Pulse Rate [Pulse Oximeter] Respiratory Rate 15 15 16 Blood Pressure 108/67 107/69 91/74 Blood Pressure [Left Arm] Pulse Oximetry 95 93 93 Oxygen Delivery Method Room Air Room Air Room Air Oxygen Flow Rate 06/08/24 16:00 06/08/24 16:15 06/08/24 16:30 Temperature 96 F L 96 F L 96 F L Pulse Rate 66 58 L 57 L Pulse Rate [Pulse Oximeter] Respiratory Rate 16 16 16 Blood Pressure 111/78 107/77 104/75 Blood Pressure [Left Arm] Pulse Oximetry 95 96 94 Oxygen Delivery Method Room Air Room Air Room Air Oxygen Flow Rate 06/08/24 16:45 06/08/24 17:00 06/08/24 17:30 Temperature 96.4 F L 96.9 F L Pulse Rate 61 59 L 68 Pulse Rate [Pulse Oximeter] Respiratory Rate 16 16 16 Blood Pressure 118/74 123/79 132/93 H Blood Pressure [Left Arm] Pulse Oximetry 95 95 95 Oxygen Delivery Method Room Air Room Air Room Air Oxygen Flow Rate 10 06/08/24 18:00 06/08/24 19:00 06/08/24 20:00 Temperature 97 F L 97.6 F 97.7 F Pulse Rate 67 66 64 Pulse Rate [Pulse Oximeter] Respiratory Rate 16 18 20 Blood Pressure 113/80 120/81 108/81 Blood Pressure [Left Arm] Pulse Oximetry 95 92 92 Oxygen Delivery Method Room Air Room Air Room Air Oxygen Flow Rate 06/08/24 21:00 06/08/24 22:44 06/08/24 22:44 Temperature 97.7 F Pulse Rate 55 L Pulse Rate [Pulse Oximeter] Respiratory Rate 20 18 Blood Pressure 71/55 L Blood Pressure [Left Arm] Pulse Oximetry 90 90 94 Oxygen Delivery Method Room Air Room Air Oxygen Flow Rate 06/08/24 22:44 06/09/24 02:10 06/09/24 07:00 Temperature 97.8 F 98.5 F 98.3 F Pulse Rate Pulse Rate [Pulse Oximeter] 77 89 90 Respiratory Rate 18 16 18 Blood Pressure Blood Pressure [Left Arm] 155/102 H 143/100 H 110/105 H Pulse Oximetry 94 94 93 Oxygen Delivery Method Room Air Room Air Room Air Oxygen Flow Rate 06/09/24 07:00 Temperature Pulse Rate Pulse Rate [Pulse Oximeter] Respiratory Rate 18 Blood Pressure Blood Pressure [Left Arm] Pulse Oximetry 96 Oxygen Delivery Method Room Air Oxygen Flow Rate Assessment and Plan Assessment and plan (1) Hypertension: Status: Acute (2) History of left knee replacement: Problem details: - 06/08/24Michelle Status: Acute (3) Factor V Leiden: Problem details: Will take apixaban 5 mg twice daily for 2 weeks, followed by 81 mg aspirin by mouth twice daily for 2 weeks, total of 1 month duration treatment DVT prophylaxis. Status: Acute Plan - Complete 23 hour perioperative antibiotics. - PT/OT consult for education and assistance. - Social work consult for discharge planning - Prescribed analgesics as needed - we discussed this. We will try oxycodone even half dosing at this time for pain as well as Tylenol. If this medication is not working for him, we can consider tramadol Rx. - DVT prophylaxis: As stated above, walking, and SCDs - Anticipation is for discharge to home with family/friends today 06/09/2024 if the patient remains medically stable, pain is controlled, and they are safe with mobilization.
== END 2024-06-09 12:11 | disposition home or self-care (01) ==
LOC: OR 10:57 → MEDSURG 11:01
PROVIDERS: Visit Provider Orthopaedic Surgery Sports Medicine
PROC: (CPT 27447; principal; 2024-06-08 13:15)
DX: M17.12 Unilateral primary osteoarthritis, left knee (principal); G89.18 Other acute postprocedural pain; I10 Essential (primary) hypertension; E78.5 Hyperlipidemia, unspecified; D68.51 Activated protein C resistance; Z85.46 Personal history of malignant neoplasm of prostate
CPT/HCPCS: 27447; 01402; 36415; 64447; 64454; 73560; 76942; 82565; 84132; 84295; 84520; 85025; 97110; 97116; 97161; 97165; 97535; 99100; A9270; C1776; J0665; J0690; J2250; J2371; J2405; J2704; J3010; J7030; J7120

== ENCOUNTER 2024-07-28 11:00 | Outpatient (RCR) | payer OTHER, SELFPAY ==
--- NOTE | 2024-05-25 12:22 | PT.OPE ---
PT [place] [facility] Eval PT [facility] Outpatient Eval Start: 05/25/24 08:28 Freq: Status: Active Protocol: Document 05/25/24 12:21 CJT (Rec: 05/25/24 12:22 CJT [id number]) E-signed By Christopher Mckeon PT Physical Therapy Outpatient Evaluation Insurance Information Recert Due Date 08/23/24 Insurance Name Other; See Comments Insurance Information/Comments [employer] Medical Diagnosis L TKA Treating Diagnosis L TKA Referring MD Michelle Fontenot Preferred Name Randall Fontenot Pt presents for L TKA pre-op appointment (DOS: 06/08/24). Pt had R TKA performed in 2012 and notes that his recovery went exceptionally well. Pt lives in a townhouse with his Susi in [place], [place]. They are planning to drive to [place] for his rehab following surgery. Pt reports no steps to enter home. Bed room is upstairs although he may sleep on the sofa downstairs for the first few nights after surgery. Pt has access to bathrooms upstairs and downstairs although notes no grab bars in either. He understands the importance of safety and reducing fall risk following his operation and is open to using a shower chair if needed. 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 (ICD-10) Prostate cancer (2004) C61 - Malignant neoplasm of prostate (ICD-10) Hyperlipidemia E78.5 - Hyperlipidemia, unspecified (ICD-10) Hypertension I10 - Essential (primary) hypertension (ICD-10) History of prostatectomy (2004 ) Z90.79 - Acquired absence of other genital organ(s) (ICD-10 ) History of eye surgery () Z98.890 - Other specified postprocedural states (ICD-10) H/O hernia repair Z98.890 - Other specified postprocedural states (ICD-10) Z87.19 - Personal history of other diseases of the digestive system (ICD-10) 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 Pre -surgical consultation was completed including education on expected post-surgical swelling/bruising/pain, appropriate use of pain medication, icing to reduce pain/swelling, exercises following surgery, therapy outcomes and safety in and outside his home. Pt completed several reps of each of the exercises issued in his post- TKA folder and shows good understanding of these. I did encourage the patient to practice all of these exercises at least two more times prior to surgery as well as read each of the pages on post-surgical expectations and safety and ambulation expectations following their surgery. All questions were answered to the patient's satisfaction. Skilled PT services are medically necessary to address deficits and return patient to highest level of function. Recommend physical therapy sessions 2 reducing to 1/week for 6-12 weeks, beginning 06/10/2024. Pt agrees with this plan. Printout of HEP was given for I completion and pt gives verbal understanding of each exercise. Primary Functional Limitations Walking, stairs Plan of Care Rehabilitation Potential Excellent Physical Therapy Goals STG - To be completed in 2-3 weeks: 1. Pt will report consistent use of ice as well as elevation of surgical limb while resting to reduce inflammation and swelling. 2. Pt will demonstrate 90 degrees of knee flexion on surgical limb to reduce risk of contracture development and progress through rehabilitation as expected. 3. Pt to show appropriate use of all AD's with minimal gait deviations and no LOB with all ambulation to reduce risk of falls and restore normal gait mechanics. 4. Pt will demo full knee extension to reduce risk of contracture in posterior knee and allow for ease of ambulation. LTG - To be completed in 8-12 weeks: 1. Pt to be I with HEP so that they may I manage progression of symptoms. 2. Pt will demonstrate 120 degrees knee flexion on surgical limb so that they may descend steps without restrictions in ROM. 3. Pt will perform 10+ squats of full depth with good control over medial/lateral deviation of knees to show improved functional strength to assist with transfers. 4. Pt will demonstrate 5/5 MMT knee flexion/extension of surgical limb to provide greater support to knee joint and allow for ease of ambulation. 5. Pt will ambulate with no AD and minimal gait deviations so that they may return to walking safely and comfortably for exercise and pleasure. Treatment Plan/Direct Interventions Electrical Stimulation,Gait Training,Heat,Ice/Cold/ Vasopneumatic,Joint Mobilization,Manual Therapy, Neuromuscular Re-ed,Self-Care/ Home Management,Therapeutic Activities,Therapeutic Exercises Frequency/Duration 2 reducing to 1/week for 6-12 weeks Patient Will Be Discharged From Therapy Completion of LTG(s),Skills Plateau,Independent w/HEP, Independently Progressing Evaluation Billing Untimed Code Treatment Minutes 50 PT Eval No Charge No Complexity Low Certification Information Initial Certification Date 05/25/24 Ending Certification Date 08/23/24 Provider Signature Required Yes Provider Signature Shows Agreement With POC & Medical Necessity Physician NPI Number Write NPI# Here Physician Comment/Change : Physician Signature & Date Requested Please Sign/Date Here
--- OUTSIDE RECORDS SUMMARY | 2024-06-10 12:50 | XMS_ITS | Continuity of Care Document ---
Author Name [facility] Organization [facility] Care Team Providers Care Pharmaceutical Sales Representative Name Role Phone [facility] Unavailable Unavailable Problems Combined list of problems from Department of Defense and Veterans Affairs facilities. It does not include entries that were removed or entered in error. 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) Active 976 Condition Aug 16, 2012 Entered By: GAURAV IYER Comment: s/p Photo Therapeutic Keratotomy in 2012 Entered By: GAURAV IYER Comment: Corneal transplant for recurrent ulcers in 2012 Entered By: GAURAV IYER Comment: Catract extraction in 2012 Entered By: GAURAV IYER Comment: Bleropheroplasty in 04/2011 [facility] Adjustment Disorder with Anxiety (ICD-9-CM 309.24) Active Condition [facility] Benign essential hypertension (SNOMED CT 2804246) Active Condition [facility] DJD * (ICD-9-CM 715.90) Active Condition [facility] F5 (Coagulation factor V) (eg, Hereditary Hypercoagulabilit y) Gene Analysis, Lei Active Condition Aug 16, 2012 Entered By: GAURAV IYER Comment: dx in 2009 prior to knee replaceement [facility] History of male erectile disorder (SNOMED CT 875548946) Active Condition [facility] HTN * (ICD-9-CM 401.9) Active Condition [facility] Hyperglycemia * (ICD-9-CM 790.29) Active Condition [facility] Hyperlipidemia (SNOMED CT 69318317) Active Condition [facility] Hyperlipidemia * (ICD-9-CM 272.4) Active Condition [facility] Inguinal hernia, without mention of obstruction or gangrene Active Condition Aug 16, 2012 Entered By: GAURAV IYER Comment: s/p L hernioraphy in 2007 and Rt in 2010 [facility] Keratoconus Nos Active Condition [facility] Kidney stone (SNOMED CT 79245648) Active Condition Aug 16, 2012 Entered By: GAURAV IYER Comment: s/p cystoscopy in 2012 Entered By: GAURAV IYER Comment: recurrence in 2007 but no further interventionsAug 16, 2012 Entered By: GAURAV IYER Comment: CT scan in 01/30 Stable [facility] Nephrolithiasis * (ICD-9-CM 592.0) Active Condition [facility] Osteoarthritis (SNOMED CT 561148289) Active Condition Aug 16, 2012 Entered By: GAURAV IYER Comment: Rt knee injury in 1968. 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 [facility] Medications Combined list of outpatient medications [...] DOSE) FOR CHOLESTE ROL ORAL ACTIVE 09/21/2024 [id number] JAYLON,ARS HAD 2023 90 [facility] ATORVASTATI N CA 20MG TAB TAKE ONE TABLET BY MOUTH AT BEDTIME (FULL TABLET DOSE) FOR CHOLESTE ROL ORAL DISCONT INUED 01/28/2024 [id number] 4 JAYLON,ARS HAD 2022 90 [facility] EPINEPHRINE (EQV-EPI-PE N) 0.3MG/0.3ML INJECTOR INJECT 1 PEN DIRECTED NEEDED FOR ALLERGIC REACTION ACTIVE 11/24/2024 [id number] 4 JAYLON,ARS HAD 2023 2 [facility] GLUCOSAMINE CAP/TAB TAKE ACTIVE JAYLON,ARS HAD 2012 [facility] HYDROCHLORO THIAZIDE 12.5MG/GAYE NOPRIL 20MG TAB TAKE 1 TABLET BY MOUTH EVERY DAY ORAL 05/05/2024 [id number] JAYLON,ARS HAD 2022 90 [facility] MARINE LIPID (FISH OIL) CAP,ORAL TAKE 3000GRAM BY MOUTH ORAL ACTIVE JAYLON,ARS HAD 2012 [facility] MULTIVITAMI NS CAP/TAB TAKE ONE TABLET BY MOUTH EVERY DAY ORAL ACTIVE JAYLON,ARS HAD 2012 [facility] SILDENAFIL CITRATE 100MG TAB TAKE ONE TABLET BY MOUTH NEEDED 1 HOUR BEFORE ANTICIPA HIGINIO SEXUAL ACTIVITY ORAL 05/05/2024 [id number] 4 JAYLON,ARS HAD 2022 18 [facility] Allergies, Adverse Reactions, Alerts Combined list of allergies from Department of Defense and Veterans Affairs facilities. It does not include entries that were removed or entered in error. Substance Category Reaction Severity Reaction type Status Date Reported Comments Source [place] Propensity to adverse reaction (finding) active 7 [facility] BEE STINGS Propensity to adverse reaction (finding) Anaphylaxis active [facility] Immunizations Combined list of available immunizations from the Department of Defense and Veterans Affairs facilities. Immunization Series Date Given Administered By Site Reaction Lot Number CVX Code Drug Generator Operator Status Comments Source INFLUENZA, SPLIT VIRUS, TRIVALENT, PF 2023 KEKE VELIZ LEFT DELTO ID [id number] 140 complet ed [place] [facility] COVID-19 (PFIZER), MRNA, LNP-S, PF, NEAL-SUCROSE, 30 MCG/0.3 ML (AGES 12+ YEARS) 1 2022 SERJIO LAW RIGHT DELTO ID [id number] 309 complet ed [place] [facility] INFLUENZA, HIGH-DOSE, QUADRIVALENT 2022 SERJIO LAW RIGHT DELTO ID [id number] 197 complet ed [place] [facility] COVID-19 (PFIZER), MRNA, LNP-S, BIVALENT BOOSTER, PF, 30 MCG/0.3 ML DOSE 1 2021 300 complet ed PFR; [id number]; 3 [facility] INFLUENZA VACCINE, QUADRIVALENT, ADJUVANTED 2021 205 complet ed [facility] COVID-19 (PFIZER), MRNA, LNP-S, PF, 30 MCG/0.3 ML DOSE, NEAL-SUCROSE (AGES 12+ YEARS) 4 2021 217 complet ed PFR; [id number]; 2 [place] [facility] COVID-19 (PFIZER), MRNA, LNP-S, PF, 30 MCG/0.3 ML DOSE 3 2020 208 complet ed PFR; [id number]; 1 [place] [facility] INFLUENZA, INJECTABLE, QUADRIVALENT, PRESERVATIVE FREE [address] [facility] COVID-19 (PFIZER), MRNA, LNP-S, PF, 30 MCG/0.3 ML DOSE 2 2020 208 complet ed PFR; [id number]; 1 [facility] COVID-19 (PFIZER), MRNA, LNP-S, PF, 30 MCG/0.3 ML DOSE 1 2020 208 complet ed PFR; [id number]; 1 [facility] INFLUENZA, INJECTABLE, QUADRIVALENT, PRESERVATIVE FREE 2019 150 complet ed [place] [facility] INFLUENZA, HIGH DOSE SEASONAL 2018 135 complet ed [facility] TD (ADULT) 2015 138 complet ed [employer], [id number], 7 [facility] ZOSTER LIVE 2014 121 complet ed [employer] lot# [id number], expiratio n 06-14- [facility] TD (ADULT), 2 LF TETANUS TOXOID, PRESERVATIVE FREE, ADSORBED 2010 09 complet ed [facility] TDAP 2005 115 complet ed [facility] TD(ADULT) UNSPECIFIED FORMULATION 2002 139 complet ed [facility] TD (ADULT), 2 LF TETANUS TOXOID, PRESERVATIVE FREE, ADSORBED 1993 09 complet ed [facility] Results Combined list of recent chemistry, hematology [...] 2023 05:03 PM Reporting Lab: [facility] [address] Performing Lab: [facility] [address] [facility] PSA PROSTATE SPECIFIC AG [MASS/VOLUM E] IN SERUM OR PLASMA <0.01n g/mL <4.00 - 4.00 09/17 Specimen Type: SERUM No comment entered. Ordering Provider: ANGIE IYER Report Released Date/Time: Aug 05, 2023 05:03 PM Reporting Lab: [facility] [address] Performing Lab: [facility] [address] [facility] TSH W/REFLEX TO FREE T4 THYROTROPIN [UNITS/VOLU ME] IN SERUM OR PLASMA 1.61 u[IU]/ mL 0.35 - 4.94 09/17 Specimen Type: PLASMA No comment entered. Ordering Provider: ANGIE IYER Report Released Date/Time: Aug 05, 2023 05:03 PM Reporting Lab: [facility] [address] Performing Lab: [facility] [address] [facility] COMPREHEN SIVE METABOLIC PANEL+MG CREATININE [MASS/VOLUM E] IN SERUM OR PLASMA 1.0 mg/dL 0.7 - 1.2 09/17 Specimen Type: PLASMA No comment entered. Ordering Provider: ANGIE IYER Report Released Date/Time: Aug 05, 2023 05:03 PM Reporting Lab: [facility] [address] Performing Lab: [facility] [address] [facility] COMPREHEN SIVE METABOLIC PANEL+MG UREA NITROGEN [MASS/VOLUM E] IN SERUM OR PLASMA 19 mg/dL 8 - 26 09/17 Specimen Type: PLASMA No comment entered. Ordering Provider: ANGIE IYER Report Released Date/Time: Aug 05, 2023 05:03 PM Reporting Lab: [facility] [address] Performing Lab: [facility] [address] [facility] COMPREHEN SIVE METABOLIC PANEL+MG GLUCOSE [MASS/VOLUM E] IN SERUM OR PLASMA 109 mg/dL 70 - 100 09/17 H Specimen Type: PLASMA No comment entered. Ordering Provider: ANGIE IYER Report Released Date/Time: Aug 05, 2023 05:03 PM Reporting Lab: [facility] [address] Performing Lab: [facility] [address] [facility] COMPREHEN SIVE METABOLIC PANEL+MG SODIUM [MOLES/VOLU ME] IN SERUM OR PLASMA 138 mmol/L 136 - 145 09/17 Specimen Type: PLASMA No comment entered. Ordering Provider: ANGIE IYER Report Released Date/Time: Aug 05, 2023 05:03 PM Reporting Lab: [facility] [address] Performing Lab: [facility] [address] [facility] COMPREHEN SIVE METABOLIC PANEL+MG POTASSIUM [MOLES/VOLU ME] IN SERUM OR PLASMA 4.0 mmol/L 3.5 - 5.1 09/17 Specimen Type: PLASMA No comment entered. Ordering Provider: ANGIE IYER Report Released Date/Time: Aug 05, 2023 05:03 PM Reporting Lab: [facility] [address] Performing Lab: [facility] [address] [facility] COMPREHEN SIVE METABOLIC PANEL+MG CHLORIDE [MOLES/VOLU ME] IN SERUM OR PLASMA 102 mmol/L 98 - 107 09/17 Specimen Type: PLASMA No comment entered. Ordering Provider: ANGIE IYER Report Released Date/Time: Aug 05, 2023 05:03 PM Reporting Lab: [facility] [address] Performing Lab: [facility] [address] [facility] COMPREHEN SIVE METABOLIC PANEL+MG CARBON DIOXIDE, TOTAL [MOLES/VOLU ME] IN SERUM OR PLASMA 26 mmol/L 22 - 29 09/17 Specimen Type: PLASMA No comment entered. Ordering Provider: ANGIE IYER Report Released Date/Time: Aug 05, 2023 05:03 PM Reporting Lab: [facility] [address] Performing Lab: [facility] [address] [facility] COMPREHEN SIVE METABOLIC PANEL+MG CALCIUM [MASS/VOLUM E] IN SERUM OR PLASMA 9.9 mg/dL 8.4 - 10.2 09/17 Specimen Type: PLASMA No comment entered. Ordering Provider: ANGIE IYER Report Released Date/Time: Aug 05, 2023 05:03 PM Reporting Lab: [facility] [address] Performing Lab: [facility] [address] [facility] COMPREHEN SIVE METABOLIC PANEL+MG PROTEIN [MASS/VOLUM E] IN SERUM OR PLASMA 7.1 g/dL 6.0 - 8.3 09/17 Specimen Type: PLASMA No comment entered. Ordering Provider: ANGIE IYER Report Released Date/Time: Aug 05, 2023 05:03 PM Reporting Lab: [facility] [address] Performing Lab: [facility] [address] [facility] COMPREHEN SIVE METABOLIC PANEL+MG ALBUMIN [MASS/VOLUM E] IN SERUM OR PLASMA 4.3 g/dL 3.5 - 5.2 09/17 Specimen Type: PLASMA No comment entered. Ordering Provider: ANGIE IYER Report Released Date/Time: Aug 05, 2023 05:03 PM Reporting Lab: [facility] [address] Performing Lab: [facility] [address] [facility] COMPREHEN SIVE METABOLIC PANEL+MG BILIRUBIN.T OTAL [MASS/VOLUM E] IN SERUM OR PLASMA 0.9 mg/dL 0.2 - 1.2 09/17 Specimen Type: PLASMA No comment entered. Ordering Provider: ANGIE IYER Report Released Date/Time: Aug 05, 2023 05:03 PM Reporting Lab: [facility] [address] Performing Lab: [facility] [address] [facility] COMPREHEN SIVE METABOLIC PANEL+MG MAGNESIUM [MASS/VOLUM E] IN SERUM OR PLASMA 1.8 mg/dL 1.6 - 2.6 09/17 Specimen Type: PLASMA No comment entered. Ordering Provider: ANGIE IYER Report Released Date/Time: Aug 05, 2023 05:03 PM Reporting Lab: [facility] [address] Performing Lab: [facility] [address] [facility] COMPREHEN SIVE METABOLIC PANEL+MG ANION GAP IN SERUM OR PLASMA 10 mmol/L 5 - 15 09/17 Specimen Type: PLASMA No comment entered. Ordering Provider: ANGIE IYER Report Released Date/Time: Aug 05, 2023 05:03 PM Reporting Lab: [facility] [address] Performing Lab: [facility] [address] [facility] COMPREHEN SIVE METABOLIC PANEL+MG ALKALINE PHOSPHATASE [ENZYMATIC ACTIVITY/VO LUME] IN SERUM OR PLASMA 63 U/L 40 - 150 09/17 Specimen Type: PLASMA No comment entered. Ordering Provider: ANGIE IYER Report Released Date/Time: Aug 05, 2023 05:03 PM Reporting Lab: [facility] [address] Performing Lab: [facility] [address] [facility] COMPREHEN SIVE METABOLIC PANEL+MG ALANINE AMINOTRANSF ERASE [ENZYMATIC ACTIVITY/VO LUME] IN SERUM OR PLASMA 27 U/L <55 - 55 09/17 Specimen Type: PLASMA No comment entered. Ordering Provider: ANGIE IYER Report Released Date/Time: Aug 05, 2023 05:03 PM Reporting Lab: [facility] [address] Performing Lab: [facility] [address] [facility] COMPREHEN SIVE METABOLIC PANEL+MG ASPARTATE AMINOTRANSF ERASE [ENZYMATIC ACTIVITY/VO LUME] IN SERUM OR PLASMA 25 U/L <34 - 34 09/17 Specimen Type: PLASMA No comment entered. Ordering Provider: ANGIE IYER Report Released Date/Time: Aug 05, 2023 05:03 PM Reporting Lab: [facility] [address] Performing Lab: [facility] [address] [facility] COMPREHEN SIVE METABOLIC PANEL+MG GLOMERULAR FILTRATION RATE/1.73 SQ M.PREDICTED [VOLUME RATE/AREA] IN SERUM, PLASMA OR BLOOD BY CREATININE- BASED FORMULA (CKD-EPI 2020) 77 60 09/17 Specimen Type: PLASMA No comment entered. Ordering Provider: ANGIE IYER Report Released Date/Time: Aug 05, 2023 05:03 PM Reporting Lab: [facility] [address] Performing Lab: [facility] [address] [facility] LIPID PANEL,NON -FASTING CHOLESTEROL [MASS/VOLUM E] IN SERUM OR PLASMA 174 mg/dL <199 - 199 09/17 Specimen Type: PLASMA No comment entered. Ordering Provider: ANGIE IYER Report Released Date/Time: Aug 05, 2023 05:03 PM Reporting Lab: [facility] [address] Performing Lab: [facility] [address] [facility] LIPID PANEL,NON -FASTING CHOLESTEROL IN HDL [MASS/VOLUM E] IN SERUM OR PLASMA 46 mg/dL 40 09/17 Specimen Type: PLASMA No comment entered. Ordering Provider: ANGIE IYER Report Released Date/Time: Aug 05, 2023 05:03 PM Reporting Lab: [facility] [address] Performing Lab: [facility] [address] [facility] LIPID PANEL,NON -FASTING CHOLESTEROL IN LDL [MASS/VOLUM E] IN SERUM OR PLASMA BY CALCULATION 96 mg/dL <99 - 99 09/17 Specimen Type: PLASMA No comment entered. Ordering Provider: ANGIE IYER Report Released Date/Time: Aug 05, 2023 05:03 PM Reporting Lab: [facility] [address] Performing Lab: [facility] [address] [facility] LIPID PANEL,NON -FASTING CHOLESTEROL IN VLDL [MASS/VOLUM E] IN SERUM OR PLASMA BY CALCULATION 32 mg/dL <29 - 29 09/17 H Specimen Type: PLASMA No comment entered. Ordering Provider: ANGIE IYER Report Released Date/Time: Aug 05, 2023 05:03 PM Reporting Lab: [facility] [address] Performing Lab: [facility] [address] [facility] LIPID PANEL,NON -FASTING CHOLESTEROL NON HDL [MASS/VOLUM E] IN SERUM OR PLASMA 128 mg/dL <129 - 129 09/17 Specimen Type: PLASMA No comment entered. Ordering Provider: ANGIE IYER Report Released Date/Time: Aug 05, 2023 05:03 PM Reporting Lab: [facility] [address] Performing Lab: [facility] [address] [facility] LIPID PANEL,NON -FASTING TRIGLYCERID E [MASS/VOLUM E] IN SERUM OR PLASMA 162 mg/dL <149 - 149 09/17 H Specimen Type: PLASMA No comment entered. Ordering Provider: ANGIE IYER Report Released Date/Time: Aug 05, 2023 05:03 PM Reporting Lab: [facility] [address] Performing Lab: [facility] [address] [facility] Vital Signs Combined list of inpatient and [...] [place] [facility] ADMN SARSCOV2 VACC 1 DOSE [id number] Diagnos is: ICD-10- CM Z23 Encount er for immuniz ation<b r/> Lucy LAW 05/22 [place] [facility] [place] [facility] Outpatient Encounter [id number] 05[facility] [place] [facility] Outpatient Encounter [id number] 06/02 [place] [facility] [place] [facility] Outpatient Encounter [id number] 08/05 [facility] [place] [facility] Outpatient Encounter [id number] DIGNA JACQUES 09[facility]17 [facility] Outpatient Encounter [id number] Diagnos is: ICD-10- CM D07.5 Carcino ma in situ of prostat e
FLORENCIO IYER 09/20 [facility] [place] [facility] Outpatient Encounter [id number] CORBY LOPEZ 01/10 [place] [facility] [place] [facility] Outpatient Encounter [id number] Vince GRAHAM 01/11 [facility] [place] [facility] Outpatient Encounter [id number] HERMELINDA MCCULLOUGH SA 01/12 [facility] [place] [facility] Outpatient Encounter [id number] 01/21 [place] [facility] [place] [facility] Outpatient Encounter [id number] Kimberly JAIMES 02/03 [facility] [place] [facility] Outpatient Encounter [id number] 02/[address] [facility] [place] [facility] Outpatient Encounter [id number] 03/[address] [facility] [place] [facility] OFF/OP EST MAY X REQ PHY/QHP [id number] Diagnos is: ICD-10- CM Z23 Encount er for immuniz ation<b r/> KEREN,FABIEN ORAH A 03/16 [place] [facility] Social History Combined list of available smoking, tobacco, and other social history from Department of Defense and [facility] facilities. Social History Type Response Date Comment [facility] e [facility] 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 USER 10/14/2017 [facility] History of tobacco use 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 RN SHIFT MGR USER 11/03/2016 [facility] History of tobacco use 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 RN SHIFT MGR USER 10/23/2015 [facility] History of tobacco use 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 RN SHIFT MGR USER 10/25/2014 [facility] History of tobacco use 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 RN SHIFT MGR USER 09/28/2013 [facility] History of tobacco use 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 RN SHIFT MGR USER 08/16/2012 [facility] History of tobacco use 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-USER OF TOBACCO 01/07/2010 [facility] History of tobacco use 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 RN SHIFT MGR USER 07/20/2006 [facility] Advance Directives List of completed, amended, or rescinded Advance Directives on record at Department of [facility] Affairs facilities. An actual copy of the Directive is not included. Date Advance Directive Provider Source 10/08/2021 ADVANCE [address] [facility] 06/27/2011 ADVANCE DIRECTIVE DISCUSSION KENYA AVILA [facility] 06/27/2011 ADVANCE DIRECTIVE KENYA AVILA [facility]
--- OUTSIDE RECORDS SUMMARY | 2024-06-10 12:51 | XMS_ITS | Encounter Summary ---
Author Name [facility] [place] [facility] [place] Address [address] [place] [address] [address] Care [address] Mri Technologist Name Role Phone GAURAV IYER Primary Care [...] Name Patient's Relationship to Policy Cazares BCBS [facility] ([place]) MEDICARE ADVANTAGE [facility] ([facility]) Jun 22, 2022 [id number] [phone] OLESYA REDDY PATIENT CIGNA RETIREE ALLIA [employer] May 22, 2010 [id number] OLESYA REDDY PATIENT CIGNA MEDICARE SUPPLEMENT MEDICARE SUPPLEMEN [facility] MEDIC ARE SUPPL EMENT Jun 22, 2016 PLAN [place] [id number] OLESYA REDDY PATIENT MEDICARE (WNR) MEDICARE (M) PART A May 22, 2010 PART A [id number] OLESYA REDDY PATIENT MEDICARE (WNR) MEDICARE (M) PART B May 22, 2010 PART B [id number] OLESYA REDDY PATIENT MEDICARE (WNR) MEDICARE (M) PART A May 22, 2010 PART A [id number] [phone] OLESYA REDDY PATIENT MEDICARE (WNR) MEDICARE (M) PART B May 22, 2010 PART B [id number] OLESYA REDDY PATIENT Selected Encounter This section includes the information on record at [place] for the Encounter. Date/Time Encounter Type Encounter Description Reason Pro vider Source Jan 22, 2024 01:27 PM Outpatient Encounter TELEPHONE TRIAGE IHE Encounter Template Text not used by [place] Plan of Treatment: Future Appointments (+ 6 [...] 19, 2024 01:10 PM AMBULATORY - NONE [facility] Active, Pending, and Scheduled Orders This section includes a listing of several types of active, pending, and scheduled orders, including clinic medications orders, diagnostic test orders, procedure orders and consult orders; where the start date of the order is 45 days before the date of the Encounter or 45 days after the date of theEncounter. The data comes from all [place] treatment [facility]. Test Date/Time Test Type Test Details Facility Name Jan 13, 2024 04:15 PM Consult Order COMMUNITY CARE-ORTHO SURG Cons Instrument Mechanics Supervisor's Choice [facility] Social History: Smoking Status (Most current) and Tobacco Use (All prior to encounter date) This section includes the most current, and the historical, smoking and tobacco- related health factors from the [place] facility where the Encounter took place. Current Smoking Status This section includes the most current smoking, or tobacco-related health factor, from the [place] facility where the Encounter took place. Date/Time Current Smoking Status Comment Facil amrik Sep 18, 2023 03:06 PM VA-TOBACCO NEVER USED [facility] Tobacco Use History This section includes a history of the smoking, or tobacco-related health factors, that were collected on or before the date of the Encounter. The data comes from the [place] facility where the Encounter took place. Date/Time Smoking Status/Tobacco Use Comment F acility Mar 04, 2021 12:55 PM VA-TOBACCO NEVER USED [facility] Advance Directives: All historical and current Section Date Range: From patient's date of to the date document was created. This section includes ALL of a patient's completed or amended [place] Advance and Rescinded Directives. The entries below indicate that a directive exists for the patient, but an actual copy is not included with this document. The data comes from all [facility]. Date Advance Directives Provider Source Oct 08, 2021 ADVANCE DIRECTIVE KRISTINE PINK [facility] Oct 08, 2021 ADVANCE DIRECTIVE DISCUSSION Patsy PINK [facility] Jun 27, 2011 ADVANCE DIRECTIVE DISCUSSION [...] the Encounter. The data comes from all [place] treatment facilities. Date/Time Radiology Report Provider Source Jan 11, 2024 01:12 PM NON [place] KNEE LEFT: OLESYA REDDY [id number] -[id number] M Ex Date: JAN 11, 2024@13:12 Req Phys: GAURAV IYER Pat Loc: [facility] XRAY GENERAL AM (Req'g Loc Img Loc: OUTSOURCE MAIN X-RAY Service: Unknown (Case [id number] COMPLETE) NON [place] KNEE LEFT (RAD Detailed) CPT:63444 Reason for Study: OUTSIDE STUDY Clinical History: OUTSIDE STUDY Report Status: Electronically Filed Date Reported: JAN 13, 2024 Report: This is an outside Imaging study and/or report imported for continuity of patient care. This Imaging study and/or report was not reviewed or verified by a [place] Radiologist. Impression: This is an outside Imaging study and/or report imported for continuity of patient care. This Imaging study and/or report was not reviewed or verified by a [place] Radiologist. Primary Diagnostic Code: VERIFIED BY: / *ELECTRONICALLY FILED* [facility] Encounter Notes: All associated encounter notes This section contains the clinical notes associated to the Encounter. Date/Time Encounter Note(s) Provider Source Jan 22, 2024 01:27 PM ADMINISTRATIVE NOT E: LOCAL TITLE: CCC: SCHEDULING ADMINISTRATION STANDARD TITLE: ADMINISTRATIVE NOTE DATE OF NOTE: JAN 22, 2024@13:27 ENTRY DATE: JAN 22, 2024@13:27:10 AUTHOR: SHADIA CEDEÑO EXP COSIGNER: URGENCY: STATUS: COMPLETED CCC: SCHEDULING ADMINISTRATION Has ADDENDA Primary Care Call Center Primary Care Provider Call. the is requesting a community care order to be placed for ortho. This note was created by a 3 [facility] Call Center ELIAS/LUIS. Please do not alert this chief writer by adding as a signer for future communications. Alerts are not monitored by this user, please reach out to [facility] Leadership instead if indicated. /[place] CEDEÑO VISN23 [facility] AMSA Signed: 01/22/2024 13:28 Receipt Acknowledged By: 01/22/2024 14:08 /brissa/ HAYDEE KWONG, RN, RDH, CRMST STAFF NURSE, OLIVIA PLAMER 01/22/2024 ADDENDUM STATUS: COMPLETED [place] and or E-contact verified using all HIPAA guidelines prior to conversation. Covering PACT RN was able to reach as he was wondering where his ortho consult was at in it's completion. He will follow up in a week if CC does not call him to schedule. /HAYDEE Lee, RN, RD, CRMST STAFF NURSE, CBJEF PALMER Signed: 01/22/2024 14:11 SHADIA CEDEÑO [facility]
--- NOTE | 2024-06-10 13:59 | PT.OPDN ---
PT [place] Outpatient Daily Note PT [facility] Outpatient Daily Note Start: 05/25/24 08:28 Freq: Status: Active Protocol: Document 06/10/24 08:02 ENM (Rec: 06/10/24 13:17 ENM [id number]) E-signed By Gloria Valle DPT PT OP Daily Progress Note Visit Information Note Type Re-Evaluation Visit Number 2 Physician Authorized Visits eval and treat Insurance Information Recert Due Date 09/08/24 Insurance Name Other; See Comments Insurance Information/Comments 's Affairs Medical Diagnosis L TKA Treating Diagnosis left knee pain, impaired gait, impaired balance, muscle weakness, decreased knee ROM Referring MD Michelle Subjective Preferred Name Randall Subjective Pt returns to PT 2 days s/p for L TKA (DOS: 06/08/24). He is feeling better than he expected, felt similar to his other knee replacement. He is just taking high dose of tylenol and ibuprofen but no oxycodone. That is managing the pain to an extent but felt higher levels at night. Is suspicious that the oxy causes his BP to drop and would not like to take it for now. Has been getting around the house with the walker. Has been able to navigate getting in<>out of bed as well as the car. Was nauseous yesterday morning but nothing since then. His goal is to get back to walking in the [place] and cutting down trees. Is staying in the area with family for now. Has been icing consistently and trying to elevate. 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 (ICD-10) Prostate cancer (2004) C61 - Malignant neoplasm of prostate (ICD-10) Hyperlipidemia E78.5 - Hyperlipidemia, unspecified (ICD-10) Hypertension I10 - Essential (primary) hypertension (ICD-10) History of prostatectomy (2004 ) Z90.79 - Acquired absence of other genital organ(s) (ICD-10 ) History of eye surgery () Z98.890 - Other specified postprocedural states (ICD-10) H/O hernia repair Z98.890 - Other specified postprocedural states (ICD-10) Z87.19 - Personal history of other diseases of the digestive system (ICD-10) 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 Bandaging is in place Patient Instructed in Risks/Benefits Yes Therapeutic Exercise Therapeutic Exercise Minutes (minutes) 30 Therapeutic Exercise: To Restore -supine ankle pumps 1x15 Functional Status -supine quad set 1x10 with 3s holds -supine heel slides 1x10 (able to achieve 114 degs) -supine SLR 2x5 with Marii -seated marches 1x10 B -seated heel raises 1x15 -seated hamstring stretch 2x20s holds Manual Therapy Techniques Manual Therapy Minutes (minutes) 6 Manual Therapy Techniques -supine skilled decongestive massage to left lower leg Gait & Stair Training Gait Training/Stairs Minutes (minutes) 4 Gait & Stair Training Comments -Ambulation x2 laps with 2WW focusing on heel toe push off. Also lowered patients walker to proper height Treatment Minutes Untimed Code Treatment Minutes 10 Timed Code Treatment Minutes 40 Total Treatment Time 50 Billing Units Therapeutic Exercise Units 3 Re-Evaluation Units 1 Assessment/Impression Assessment/Impression Patient returns to PT for evaluation after L TKA DOS . They have been doing well after surgery with pain ranging from 2-7/10 being managed with tylenol and ibuprofen. They have had no difficulties with navigating home environment using 2WW. Have been consistent with exercises, icing and elevation . Upon assessment patient displays decreased knee ROM, impaired gait, impaired transfers, decreased quad strength and swelling. Impairments consistent with s/ p TKA. He displays great knee flexion range of 106 degrees today, knee extension is 7 degrees from neutral. Quad strength is fair requiring Marii to complete SLR. Randall would greatly benefit from skilled PT to address impairments stated above for return to functional mobility and recreational activities after surgery. Primary Functional Limitations walking, stairs, transfers Plan of Care Physical Therapy Goals STG - To be completed in 2-3 weeks: 1. Pt will report consistent use of ice as well as elevation of surgical limb while resting to reduce inflammation and swelling. 2. Pt will demonstrate 90 degrees of knee flexion on surgical limb to reduce risk of contracture development and progress through rehabilitation as expected. 3. Pt to show appropriate use of all AD's with minimal gait deviations and no LOB with all ambulation to reduce risk of falls and restore normal gait mechanics. 4. Pt will demo full knee extension to reduce risk of contracture in posterior knee and allow for ease of ambulation. LTG - To be completed in 8-12 weeks: 1. Pt to be I with HEP so that they may I manage progression of symptoms. 2. Pt will demonstrate 120 degrees knee flexion on surgical limb so that they may descend steps without restrictions in ROM. 3. Pt will perform 10+ squats of full depth with good control over medial/lateral deviation of knees to show improved functional strength to assist with transfers. 4. Pt will demonstrate 5/5 MMT knee flexion/extension of surgical limb to provide greater support to knee joint and allow for ease of ambulation. 5. Pt will ambulate with no AD and minimal gait deviations so that they may return to walking safely and comfortably for exercise and pleasure. Daily Plan of Care Continue per POC Recertification Information Recertification Start Date 06/10/24 Recertification Due Date 09/08/24 Reasons to Continue Skilled Therapy Patient continues to benefit from skilled PT for full return to PLOF after total knee replacement. Rehabilitation Potential good Continued Plan of Care and Interventions 2x a week for 6-8 weeks, 1-2x a week for 4 weeks decreasing frequency as appropriate Provider Signature Shows Agreement With POC & Medical Necessity Physician Comment/Change Comment or Changes Physician NPI Number #
--- OUTSIDE RECORDS SUMMARY | 2024-06-13 13:32 | XMS_ITS | Continuity of Care Document ---
Author Name [facility] Organization [facility] Care Team Providers Care Air Transportation Provider Name Role Phone [facility] Unavailable Unavailable Problems Combined list of problems from Department of Defense and Veterans Affairs facilities. It does not include entries that were removed or entered in error. 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 976 Condition Aug 16, 2012 Entered By: GAURAV IYER Comment: s/p Photo Therapeutic Keratotomy in 2012 Entered By: GAURVA IYER Comment: Corneal transplant for recurrent ulcers in 2012 Entered By: GAURAV IYER Comment: Catract extraction in 2012 Entered By: GAURAV IYER Comment: Bleropheroplasty in 04/2011 [facility] Adjustment Disorder with Anxiety (ICD-9-CM 309.24) Active Condition [facility] Benign essential hypertension (SNOMED CT 1900757) Active Condition [facility] DJD * (ICD-9-CM 715.90) Active Condition [facility] F5 (Coagulation factor V) (eg, Hereditary Hypercoagulabilit y) Gene Analysis, Lei Active Condition Aug 16, 2012 Entered By: GAURAV IYER Comment: dx in 2009 prior to knee replaceement [facility] History of male erectile disorder (SNOMED CT 359454920) Active Condition [facility] HTN * (ICD-9-CM 401.9) Active Condition [facility] Hyperglycemia * (ICD-9-CM 790.29) Active Condition [facility] Hyperlipidemia (SNOMED CT 32916025) Active Condition [facility] Hyperlipidemia * (ICD-9-CM 272.4) Active Condition [facility] Inguinal hernia, without mention of obstruction or gangrene Active Condition Aug 16, 2012 Entered By: GAURAV IYER Comment: s/p L hernioraphy in 2007 and Rt in 2010 [facility] Keratoconus Nos Active Condition [facility] Kidney stone (SNOMED CT 92268219) Active Condition Aug 16, 2012 Entered By: GAURAV IYER Comment: s/p cystoscopy in 2012 Entered By: GAURAV IYER Comment: recurrence in 2007 but no further interventionsAug 16, 2012 Entered By: GAURAV IYER Comment: CT scan in 01/30 Stable [facility] Nephrolithiasis * (ICD-9-CM 592.0) Active Condition [facility] Osteoarthritis (SNOMED CT 087833937) Active Condition Aug 16, 2012 Entered By: GAURAV IYER Comment: Rt knee injury in 1968. 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 [facility] Medications Combined list of outpatient [...] DOSE) FOR CHOLESTE ROL ORAL ACTIVE 09/21/2024 [id number] JAYLON,ARS HAD 2023 90 [facility] ATORVASTATI N CA 20MG TAB TAKE ONE TABLET BY MOUTH AT BEDTIME (FULL TABLET DOSE) FOR CHOLESTE ROL ORAL DISCONT INUED 01/28/2024 [id number] 4 JAYLON,ARS HAD 2022 90 [facility] EPINEPHRINE (EQV-EPI-PE N) 0.3MG/0.3ML INJECTOR INJECT 1 PEN DIRECTED NEEDED FOR ALLERGIC REACTION ACTIVE 11/24/2024 [id number] 4 JAYLON,ARS HAD 2023 2 [facility] GLUCOSAMINE CAP/TAB TAKE ACTIVE JAYLON,ARS HAD 2012 [facility] HYDROCHLORO THIAZIDE 12.5MG/GAYE NOPRIL 20MG TAB TAKE 1 TABLET BY MOUTH EVERY DAY ORAL 05/05/2024 [id number] 4 JAYLON,ARS HAD 2022 90 [facility] MARINE LIPID (FISH OIL) CAP,ORAL TAKE 3000GRAM BY MOUTH ORAL ACTIVE JAYLON,ARS HAD 2012 [facility] MULTIVITAMI NS CAP/TAB TAKE ONE TABLET BY MOUTH EVERY DAY ORAL ACTIVE JAYLON,ARS HAD 2012 [facility] SILDENAFIL CITRATE 100MG TAB TAKE ONE TABLET BY MOUTH NEEDED 1 HOUR BEFORE ANTICIPA HIGINIO SEXUAL ACTIVITY ORAL 05/05/2024 [id number] 4 JAYLON,ARS HAD 2022 18 [facility] Allergies, Adverse Reactions, Alerts Combined list of allergies from Department of Defense and Veterans Affairs facilities. It does not include entries that were removed or entered in error. Substance Category Reaction Severity Reaction type Status Date Reported Comments Source BEE [place]INGS Propensity to adverse reaction (finding) active 7 [facility] BEE STINGS Propensity to adverse reaction (finding) Anaphylaxis active 3 [facility] Immunizations Combined list of available immunizations from the Department of Defense and Veterans Affairs facilities. Immunization Series Date Given Administered By Site Reaction Lot Number CVX Code Drug Grab Jack Worker Status Comments Source INFLUENZA, SPLIT VIRUS, TRIVALENT, PF 2023 KEKE VELIZ LEFT DELTO ID [id number] 140 complet ed [place] [facility] COVID-19 (PFIZER), MRNA, LNP-S, PF, NEAL-SUCROSE, 30 MCG/0.3 ML (AGES 12+ YEARS) 1 2022 SERJIO LAW RIGHT DELTO ID [id number] complet ed [place] [facility] INFLUENZA, HIGH-DOSE, QUADRIVALENT 2022 SERJIO LAW RIGHT DELTO ID [id number] 197 complet ed [place] [facility] COVID-19 (PFIZER), MRNA, LNP-S, BIVALENT BOOSTER, PF, 30 MCG/0.3 ML DOSE 1 2021 300 complet ed PFR; [id number]; 3 [facility] INFLUENZA VACCINE, QUADRIVALENT, ADJUVANTED 2021 205 complet ed [facility] COVID-19 (PFIZER), MRNA, LNP-S, PF, 30 MCG/0.3 ML DOSE, NEAL-SUCROSE (AGES 12+ YEARS) 4 2021 217 complet ed PFR; [id number]; 2 [place] [facility] COVID-19 (PFIZER), MRNA, LNP-S, PF, 30 MCG/0.3 ML DOSE 3 2020 208 complet ed PFR; [id number]; 1 [place] [facility] INFLUENZA, INJECTABLE, QUADRIVALENT, PRESERVATIVE FREE 2020 150 complet ed [facility] COVID-19 (PFIZER), MRNA, LNP-S, PF, 30 MCG/0.3 ML DOSE 2 2020 208 complet ed PFR; [id number]; 1 [facility] COVID-19 (PFIZER), MRNA, LNP-S, PF, 30 MCG/0.3 ML DOSE 1 2020 208 complet ed PFR; [id number]; 1 [facility] INFLUENZA, INJECTABLE, QUADRIVALENT, PRESERVATIVE FREE 2019 150 complet ed [place] [facility] INFLUENZA, HIGH DOSE SEASONAL 2018 135 complet ed [facility] TD (ADULT) 2015 138 complet ed [employer], [id number], 7 [facility] ZOSTER LIVE 2014 121 complet ed [employer] lot# [id number], expiratio n 06-14- [facility] TD (ADULT), 2 LF TETANUS TOXOID, PRESERVATIVE FREE, ADSORBED 2010 09 complet ed [facility] TDAP 2005 115 complet ed [facility] TD(ADULT) UNSPECIFIED FORMULATION 2002 139 complet ed [facility] TD (ADULT), 2 LF TETANUS TOXOID, PRESERVATIVE FREE, ADSORBED 1993 09 complet ed [facility] Results Combined list of recent chemistry, [...] 05, 2023 05:03 PM Reporting Lab: [facility] [address] Performing Lab: [facility] [address] [facility] PSA PROSTATE SPECIFIC AG [MASS/VOLUM E] IN SERUM OR PLASMA <0.01n g/mL <4.00 - 4.00 09/17 Specimen Type: SERUM No comment entered. Ordering Provider: ANGIE IYER Report Released Date/Time: Aug 05, 2023 05:03 PM Reporting Lab: [facility] [address] Performing Lab: [facility] [address] [facility] TSH W/REFLEX TO FREE T4 THYROTROPIN [UNITS/VOLU ME] IN SERUM OR PLASMA 1.61 u[IU]/ mL 0.35 - 4.94 09/17 Specimen Type: PLASMA No comment entered. Ordering Provider: ANGIE IYER Report Released Date/Time: Aug 05, 2023 05:03 PM Reporting Lab: [facility] [address] Performing Lab: [facility] [address] [facility] LIPID PANEL,NON -FASTING CHOLESTEROL [MASS/VOLUM E] IN SERUM OR PLASMA 174 mg/dL <199 - 199 09/17 Specimen Type: PLASMA No comment entered. Ordering Provider: ANGIE IYER Report Released Date/Time: Aug 05, 2023 05:03 PM Reporting Lab: [facility] [address] Performing Lab: [facility] [address] [facility] LIPID PANEL,NON -FASTING CHOLESTEROL IN HDL [MASS/VOLUM E] IN SERUM OR PLASMA 46 mg/dL 40 09/17 Specimen Type: PLASMA No comment entered. Ordering Provider: ANGIE IYER Report Released Date/Time: Aug 05, 2023 05:03 PM Reporting Lab: [facility] [address] Performing Lab: [facility] [address] [facility] LIPID PANEL,NON -FASTING CHOLESTEROL IN LDL [MASS/VOLUM E] IN SERUM OR PLASMA BY CALCULATION 96 mg/dL <99 - 99 09/17 Specimen Type: PLASMA No comment entered. Ordering Provider: ANGIE IYER Report Released Date/Time: Aug 05, 2023 05:03 PM Reporting Lab: [facility] [address] Performing Lab: [facility] [address] [facility] LIPID PANEL,NON -FASTING CHOLESTEROL IN VLDL [MASS/VOLUM E] IN SERUM OR PLASMA BY CALCULATION 32 mg/dL <29 - 29 09/17 H Specimen Type: PLASMA No comment entered. Ordering Provider: ANGIE IYER Report Released Date/Time: Aug 05, 2023 05:03 PM Reporting Lab: [facility] [address] Performing Lab: [facility] [address] [facility] LIPID PANEL,NON -FASTING CHOLESTEROL NON HDL [MASS/VOLUM E] IN SERUM OR PLASMA 128 mg/dL <129 - 129 09/17 Specimen Type: PLASMA No comment entered. Ordering Provider: ANGIE IYER Report Released Date/Time: Aug 05, 2023 05:03 PM Reporting Lab: [facility] [address] Performing Lab: [facility] [address] [facility] LIPID PANEL,NON -FASTING TRIGLYCERID E [MASS/VOLUM E] IN SERUM OR PLASMA 162 mg/dL <149 - 149 09/17 H Specimen Type: PLASMA No comment entered. Ordering Provider: ANGIE IYER Report Released Date/Time: Aug 05, 2023 05:03 PM Reporting Lab: [facility] [address] Performing Lab: [facility] [address] [facility] COMPREHEN SIVE METABOLIC PANEL+MG CREATININE [MASS/VOLUM E] IN SERUM OR PLASMA 1.0 mg/dL 0.7 - 1.2 09/17 Specimen Type: PLASMA No comment entered. Ordering Provider: ANGIE IYER Report Released Date/Time: Aug 05, 2023 05:03 PM Reporting Lab: [facility] [address] Performing Lab: [facility] [address] [facility] COMPREHEN SIVE METABOLIC PANEL+MG UREA NITROGEN [MASS/VOLUM E] IN SERUM OR PLASMA 19 mg/dL 8 - 26 03/29 /2024 Specimen Type: PLASMA No comment entered. Ordering Provider: ANGIE IYER Report Released Date/Time: Aug 05, 2023 05:03 PM Reporting Lab: [facility] [address] Performing Lab: [facility] [address] [facility] COMPREHEN SIVE METABOLIC PANEL+MG GLUCOSE [MASS/VOLUM E] IN SERUM OR PLASMA 109 mg/dL 70 - 100 09/17 H Specimen Type: PLASMA No comment entered. Ordering Provider: ANGIE IYER Report Released Date/Time: Aug 05, 2023 05:03 PM Reporting Lab: [facility] [address] Performing Lab: [facility] [address] [facility] COMPREHEN SIVE METABOLIC PANEL+MG SODIUM [MOLES/VOLU ME] IN SERUM OR PLASMA 138 mmol/L 136 - 145 09/17 Specimen Type: PLASMA No comment entered. Ordering Provider: ANGIE IYER Report Released Date/Time: Aug 05, 2023 05:03 PM Reporting Lab: [facility] [address] Performing Lab: [facility] [address] [facility] COMPREHEN SIVE METABOLIC PANEL+MG POTASSIUM [MOLES/VOLU ME] IN SERUM OR PLASMA 4.0 mmol/L 3.5 - 5.1 09/17 Specimen Type: PLASMA No comment entered. Ordering Provider: ANGIE IYER Report Released Date/Time: Aug 05, 2023 05:03 PM Reporting Lab: [facility] [address] Performing Lab: [facility] [address] [facility] COMPREHEN SIVE METABOLIC PANEL+MG CHLORIDE [MOLES/VOLU ME] IN SERUM OR PLASMA 102 mmol/L 98 - 107 09/17 Specimen Type: PLASMA No comment entered. Ordering Provider: ANGIE IYER Report Released Date/Time: Aug 05, 2023 05:03 PM Reporting Lab: [facility] [address] Performing Lab: [facility] [address] [facility] COMPREHEN SIVE METABOLIC PANEL+MG CARBON DIOXIDE, TOTAL [MOLES/VOLU ME] IN SERUM OR PLASMA 26 mmol/L 09/17 Specimen Type: PLASMA No comment entered. Ordering Provider: ANGIE IYER Report Released Date/Time: Aug 05, 2023 05:03 PM Reporting Lab: [facility] [address] Performing Lab: [facility] [address] [facility] COMPREHEN SIVE METABOLIC PANEL+MG CALCIUM [MASS/VOLUM E] IN SERUM OR PLASMA 9.9 mg/dL 8.4 - 10.2 09/17 Specimen Type: PLASMA No comment entered. Ordering Provider: ANGIE IYER Report Released Date/Time: Aug 05, 2023 05:03 PM Reporting Lab: [facility] [address] Performing Lab: [facility] [address] [facility] COMPREHEN SIVE METABOLIC PANEL+MG PROTEIN [MASS/VOLUM E] IN SERUM OR PLASMA 7.1 g/dL 6.0 - 8.3 09/17 Specimen Type: PLASMA No comment entered. Ordering Provider: ANGIE IYER Report Released Date/Time: Aug 05, 2023 05:03 PM Reporting Lab: [facility] [address] Performing Lab: [facility] [address] [facility] COMPREHEN SIVE METABOLIC PANEL+MG ALBUMIN [MASS/VOLUM E] IN SERUM OR PLASMA 4.3 g/dL 3.5 - 5.2 09/17 Specimen Type: PLASMA No comment entered. Ordering Provider: ANGIE IYER Report Released Date/Time: Aug 05, 2023 05:03 PM Reporting Lab: [facility] [address] Performing Lab: [facility] [address] [facility] COMPREHEN SIVE METABOLIC PANEL+MG BILIRUBIN.T OTAL [MASS/VOLUM E] IN SERUM OR PLASMA 0.9 mg/dL 0.2 - 1.2 09/17 Specimen Type: PLASMA No comment entered. Ordering Provider: ANGIE IYER Report Released Date/Time: Aug 05, 2023 05:03 PM Reporting Lab: [facility] [address] Performing Lab: [facility] [address] [facility] COMPREHEN SIVE METABOLIC PANEL+MG MAGNESIUM [MASS/VOLUM E] IN SERUM OR PLASMA 1.8 mg/dL 1.6 - 2.6 09/17 Specimen Type: PLASMA No comment entered. Ordering Provider: ANGIE IYER Report Released Date/Time: Aug 05, 2023 05:03 PM Reporting Lab: [facility] [address] Performing Lab: [facility] [address] [facility] COMPREHEN SIVE METABOLIC PANEL+MG ANION GAP IN SERUM OR PLASMA 10 mmol/L 5 - 15 09/17 Specimen Type: PLASMA No comment entered. Ordering Provider: ANGIE IYER Report Released Date/Time: Aug 05, 2023 05:03 PM Reporting Lab: [facility] [address] Performing Lab: [facility] [address] [facility] COMPREHEN SIVE METABOLIC PANEL+MG ALKALINE PHOSPHATASE [ENZYMATIC ACTIVITY/VO LUME] IN SERUM OR PLASMA 63 U/L 40 - 150 09/17 Specimen Type: PLASMA No comment entered. Ordering Provider: ANGIE IYER Report Released Date/Time: Aug 05, 2023 05:03 PM Reporting Lab: [facility] [address] Performing Lab: [facility] [address] [facility] COMPREHEN SIVE METABOLIC PANEL+MG ALANINE AMINOTRANSF ERASE [ENZYMATIC ACTIVITY/VO LUME] IN SERUM OR PLASMA 27 U/L <55 - 55 09/17 Specimen Type: PLASMA No comment entered. Ordering Provider: ANGIE IYER Report Released Date/Time: Aug 05, 2023 05:03 PM Reporting Lab: [facility] [address] Performing Lab: [facility] [address] [facility] COMPREHEN SIVE METABOLIC PANEL+MG ASPARTATE AMINOTRANSF ERASE [ENZYMATIC ACTIVITY/VO LUME] IN SERUM OR PLASMA 25 U/L <34 - 34 09/17 Specimen Type: PLASMA No comment entered. Ordering Provider: ANGIE IYER Report Released Date/Time: Aug 05, 2023 05:03 PM Reporting Lab: [facility] [address] Performing Lab: [facility] [address] [facility] COMPREHEN SIVE METABOLIC PANEL+MG GLOMERULAR FILTRATION RATE/1.73 SQ M.PREDICTED [VOLUME RATE/AREA] IN SERUM, PLASMA OR BLOOD BY CREATININE- BASED FORMULA (CKD-EPI 2020) 77 60 09/17 Specimen Type: PLASMA No comment entered. Ordering Provider: ANGIE IYER Report Released Date/Time: Aug 05, 2023 05:03 PM Reporting Lab: [facility] [address] Performing Lab: [facility] [address] [facility] Vital Signs Combined list of inpatient and [...] [place] [facility] ADMN SARSCOV2 VACC 1 DOSE [id number] Diagnos is: ICD-10- CM Z23 Encount er for immuniz ation<b r/> Lucy LAW 05/22 [place] [facility] [place] [facility] Outpatient Encounter [id number] 05/22 [facility] [place] [facility] Outpatient Encounter [id number] 06/02 [place] [facility] [place] [facility] Outpatient Encounter [id number] 08/05 [facility] [place] [facility] Outpatient Encounter [id number] DIGNA JACQUES 09/17 [facility] Outpatient Encounter [id number] Diagnos is: ICD-10- CM D07.5 Carcino ma in situ of prostat e
FLORENCIO IYER 09/20 [facility] [place] [facility] Outpatient Encounter [id number] CORBY LOPEZ 01/10 [place] [facility] [place] [facility] Outpatient Encounter [id number] Vince GRAHAM 01/11 [facility] [place] [facility] Outpatient Encounter [id number] HERMELINDA MCCULLOUGH SA 01/12 [facility] [place] [facility] Outpatient Encounter [id number] 01/21 [place] [facility] [place] [facility] Outpatient Encounter [id number] Kimberly JAIMES 02/03 [facility] [place] [facility] Outpatient Encounter [id number] 02/03 [facility] [place] [facility] Outpatient Encounter [id number] 03/15 [facility] [place] [facility] OFF/OP EST OCTOBER X REQ PHY/QHP [id number] Diagnos is: ICD-10- CM Z23 Encount er for immuniz ation<b r/> KEREN,FABIEN ORAH A 03/16 [place] [facility] [place] [facility] Outpatient Encounter [id number] 06/11 [facility] Social History Combined list of available smoking, tobacco, and other social history from Department of Defense and [facility] facilities. 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 DEICER TESTER USER 10/14/2017 [facility] History of tobacco use 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 DEICER TESTER USER 11/03/2016 [facility] History of tobacco use 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 DEICER TESTER USER 10/23/2015 [facility] History of tobacco use 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 DEICER TESTER USER 10/25/2014 [facility] History of tobacco use 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 DEICER TESTER USER 09/28/2013 [facility] History of tobacco use 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 DEICER TESTER USER 08/16/2012 [facility] History of tobacco use 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-USER OF TOBACCO 01/07/2010 [facility] History of tobacco use 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 DEICER TESTER USER 07/20/2006 [facility] Advance Directives List of completed, amended, or rescinded Advance Directives on record at Department of [place] [facility] facilities. An actual copy of the Directive is not included. Date Advance Directive Provider Source 10/08/2021 ADVANCE DIRECTIVE KRISTINE PINK [facility] 06/27/2011 ADVANCE DIRECTIVE DISCUSSION KENYA AVILA [facility] 06/27/2011 ADVANCE DIRECTIVE KENYA AVILA [facility]
--- OUTSIDE RECORDS SUMMARY | 2024-06-13 13:33 | XMS_ITS | Encounter Summary ---
Author Name [facility] [facility] [place] Address [address] [place] [address] Care Team Providers Care Rad Tech Name Role Phone GAURAV IYER Primary Care [...] Name Patient's Relationship to Policy [employer] BCBS [facility] (WNR) MEDICARE ADVANTAGE [facility] (WN) Jun 22, 2022 [id number] [phone] OLESYA REDDY PATIENT CIGNA RETIREE [employer] May 22, 2010 [id number] OLESYA REDDY PATIENT CIGNA MEDICARE SUPPLEMENT MEDICARE SUPPLEMEN RADHIKA MEDIC ARE SUPPL EMENT Jun 22, 2016 [place]AN [place] BASIC [id number] OLESYA REDDY PATIENT MEDICARE (WNR) MEDICARE (M) PART B May 22, 2010 PART B [id number] [phone] OLESYA REDDY PATIENT MEDICARE (WNR) MEDICARE (M) PART A May 22, 2010 PART A [id number] OLESYA REDDY PATIENT MEDICARE (WNR) MEDICARE (M) PART A May 22, 2010 PART A [id number] OLESYA REDDY PATIENT MEDICARE (WNR) MEDICARE (M) PART B May 22, 2010 PART B [id number] OLESYA REDDY PATIENT Selected Encounter This section includes the information on record at [place] for the Encounter. Date/Time Encounter Type Encounter Description Reason Pro vider Source Jun 11, 2024 10:30 AM Outpatient Encounter EVENT (HISTORICAL) IHE Encounter Template Text not used by [place] Social History: Smoking Status (Most current) and Tobacco Use (All prior to encounter date) This section includes the most current, and the historical, smoking and tobacco- related health factors from the [place] facility where the Encounter took place. Current Smoking Status This section includes the most current smoking, or tobacco-related health factor, from the [place] facility where the Encounter took place. Date/Time Current Smoking Status Comment Garett ity Sep 18, 2023 03:06 PM [facility]-TOBACCO NEVER USED [facility] Tobacco Use History This section includes a history of the smoking, or tobacco-related health factors, that were collected on or before the date of the Encounter. The data comes from the [place] facility where the Encounter took place. Date/Time Smoking Status/Tobacco Use Comment F acility Mar 04, 2021 12:55 PM [place]-TOBACCO NEVER USED [facility] Advance Directives: All historical and current Section Date Range: From patient's date of to the date document was created. This section includes ALL of a patient's completed or amended [place] Advance and Rescinded Directives. The entries below indicate that a directive exists for the patient, but an actual copy is not included with this document. The data comes from all [place] facilities. Date Advance Directives Provider Source Oct 08, 2021 [facility] Oct 08, 2021 ADVANCE DIRECTIVE DISCUSSION Patsy PINK [facility] Jun 27, 2011 ADVANCE DIRECTIVE DISCUSSION KENYA AVILA [facility] Jun 27, 2011 ADVANCE DIRECTIVE KENYA AVILA [facility]
--- OUTSIDE RECORDS SUMMARY | 2024-06-16 13:38 | XMS_ITS | Continuity of Care Document ---
Author Name [facility] Organization [facility] Care Team Providers Care Boning Room Worker Name Role Phone [facility] Unavailable Unavailable Problems Combined list of problems from Department of Defense and Veterans Affairs facilities. It does not include entries that were removed or entered in error. Problem Status Onset Date Problem Type Date of Resolution Comments Source Exposure to potentially hazardous substance ([facility] [id number]) Active 024 Condition Aug 27, 2023 Entered By: JOSE OLIVEIRA Comment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) Active 976 Condition Aug 16, 2012 Entered By: GAURAV IYER Comment: s/p Photo Therapeutic Keratotomy in 2012 Entered By: GAURAV IYER Comment: Corneal transplant for recurrent ulcers in 2012 Entered By: GAURAV IYER Comment: Catract extraction in 2012 Entered By: GAURAV IYER Comment: Bleropheroplasty in 04/2011 [facility] Adjustment Disorder with Anxiety (ICD-9-CM 309.24) Active Condition [facility] Benign essential hypertension (SNOMED CT 7204664) Active Condition [facility] DJD * (ICD-9-CM 715.90) Active Condition [facility] F5 (Coagulation factor V) (eg, Hereditary Hypercoagulabilit y) Gene Analysis, Lei Active Condition Aug 16, 2012 Entered By: GAURAV IYER Comment: dx in 2009 prior to knee replaceement [facility] History of male erectile disorder (SNOMED CT 341756612) Active Condition [facility] HTN * (ICD-9-CM 401.9) Active Condition [facility] Hyperglycemia * (ICD-9-CM 790.29) Active Condition [facility] Hyperlipidemia (SNOMED CT 31791212) Active Condition [facility] Hyperlipidemia * (ICD-9-CM 272.4) Active Condition [facility] Inguinal hernia, without mention of obstruction or gangrene Active Condition Aug 16, 2012 Entered By: GAURAV IYER Comment: s/p L hernioraphy in 2007 and Rt in 2010 [facility] Keratoconus Nos Active Condition [facility] Kidney stone (SNOMED CT 43434268) Active Condition Aug 16, 2012 Entered By: GAURAV IYER Comment: s/p cystoscopy in 2012 Entered By: GAURAV IYER Comment: recurrence in 2007 but no further interventionsAug 16, 2012 Entered By: GAURAV IYER Comment: CT scan in 01/30 Stable [facility] Nephrolithiasis * (ICD-9-CM 592.0) Active Condition [facility] Osteoarthritis (SNOMED CT 881850423) Active Condition Aug 16, 2012 Entered By: GAURAV IYER Comment: Rt knee injury in 1968. 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 [facility] Medications Combined list of outpatient medications [...] DOSE) FOR CHOLESTE ROL ORAL ACTIVE 09/21/2024 [id number] JAYLON,ARS HAD 2023 90 [facility] ATORVASTATI N CA 20MG TAB TAKE ONE TABLET BY MOUTH AT BEDTIME (FULL TABLET DOSE) FOR CHOLESTE ROL ORAL DISCONT INUED 01/28/2024 [id number] 4 JAYLON,ARS HAD 2022 90 [facility] EPINEPHRINE (EQV-EPI-PE N) 0.3MG/0.3ML INJECTOR INJECT 1 PEN DIRECTED NEEDED FOR ALLERGIC REACTION ACTIVE 11/24/2024 [id number] 4 JAYLON,ARS HAD 2023 2 [facility] GLUCOSAMINE CAP/TAB TAKE ACTIVE JAYLON,ARS HAD 2012 [facility] HYDROCHLORO THIAZIDE 12.5MG/GAYE NOPRIL 20MG TAB TAKE 1 TABLET BY MOUTH EVERY DAY ORAL 05/05/2024 [id number] 4 JAYLON,ARS HAD 2022 90 [facility] MARINE LIPID (FISH OIL) CAP,ORAL TAKE 3000GRAM BY MOUTH ORAL ACTIVE JAYLON,ARS HAD 2012 [facility] MULTIVITAMI NS CAP/TAB TAKE ONE TABLET BY MOUTH EVERY DAY ORAL ACTIVE JAYLON,ARS HAD 2012 [facility] SILDENAFIL CITRATE 100MG TAB TAKE ONE TABLET BY MOUTH NEEDED 1 HOUR BEFORE ANTICIPA HIGINIO SEXUAL ACTIVITY ORAL 05/05/2024 [id number] 4 JAYLON,ARS HAD 2022 18 [facility] Allergies, Adverse Reactions, Alerts Combined list of allergies from Department of Defense and Veterans Affairs facilities. It does not include entries that were removed or entered in error. Substance Category Reaction Severity Reaction type Status Date Reported Comments Source [place]INGS Propensity to adverse reaction (finding) active 7 [facility] BEE STINGS Propensity to adverse reaction (finding) Anaphylaxis active 3 [facility] Immunizations Combined list of available immunizations from the Department of Defense and Veterans Affairs facilities. 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 Source INFLUENZA, SPLIT VIRUS, TRIVALENT, PF 2023 KEKE VELIZ LEFT DELTO ID [id number] 140 complet ed [place] [facility] COVID-19 (PFIZER), MRNA, LNP-S, PF, NEAL-SUCROSE, 30 MCG/0.3 ML (AGES 12+ YEARS) 1 2022 SERJIO LAW RIGHT DELTO ID [id number] 309 complet ed [place] [facility] INFLUENZA, HIGH-DOSE, QUADRIVALENT 2022 SERJIO LAW RIGHT DELTO ID [id number] 197 complet ed [place] [facility] COVID-19 (PFIZER), MRNA, LNP-S, BIVALENT BOOSTER, PF, 30 MCG/0.3 ML DOSE 1 2021 300 complet ed PFR; [id number]; 3 [facility] INFLUENZA VACCINE, QUADRIVALENT, ADJUVANTED 2021 205 complet ed [facility] COVID-19 (PFIZER), MRNA, LNP-S, PF, 30 MCG/0.3 ML DOSE, NEAL-SUCROSE (AGES 12+ YEARS) 4 2021 217 complet ed PFR; [id number]; 2 [place] [facility] COVID-19 (PFIZER), MRNA, LNP-S, PF, 30 MCG/0.3 ML DOSE 3 2020 208 complet ed PFR; [id number]; 1 [place] [facility] INFLUENZA, INJECTABLE, QUADRIVALENT, PRESERVATIVE FREE 2020 150 complet ed [facility] COVID-19 (PFIZER), MRNA, LNP-S, PF, 30 MCG/0.3 ML DOSE 2 2020 208 complet ed PFR; [id number]; 1 [facility] COVID-19 (PFIZER), MRNA, LNP-S, PF, 30 MCG/0.3 ML DOSE 1 2020 208 complet ed PFR; [id number]; 1 [facility] INFLUENZA, INJECTABLE, QUADRIVALENT, PRESERVATIVE FREE 2019 150 complet ed [place] [facility] INFLUENZA, HIGH DOSE SEASONAL 2018 135 complet ed [facility] TD (ADULT) 2015 138 complet ed [employer], [id number], 7 [facility] ZOSTER LIVE 2014 121 complet ed [employer] lot# [id number], expiratio n 06-14- [facility] TD (ADULT), 2 LF TETANUS TOXOID, PRESERVATIVE FREE, ADSORBED 2010 09 complet ed [facility] TDAP 2005 115 complet ed [facility] TD(ADULT) UNSPECIFIED FORMULATION 2002 139 complet ed [facility] TD (ADULT), 2 LF TETANUS TOXOID, PRESERVATIVE FREE, ADSORBED 1993 09 complet ed [facility] Results Combined list of recent chemistry, [...] Aug 05, 2023 05:03 PM Reporting Lab: [facility] [address] Performing Lab: [facility] [address] [facility] PSA PROSTATE SPECIFIC AG [MASS/VOLUM E] IN SERUM OR PLASMA <0.01n g/mL <4.00 - 4.00 09/17 Specimen Type: SERUM No comment entered. Ordering Provider: ANGIE IYER Report Released Date/Time: Aug 05, 2023 05:03 PM Reporting Lab: [facility] [address] Performing Lab: [facility] [address] [facility] TSH W/REFLEX TO FREE T4 THYROTROPIN [UNITS/VOLU ME] IN SERUM OR PLASMA 1.61 u[IU]/ mL 0.35 - 4.94 09/17 Specimen Type: PLASMA No comment entered. Ordering Provider: ANGIE IYER Report Released Date/Time: Aug 05, 2023 05:03 PM Reporting Lab: [facility] [address] Performing Lab: [facility] [address] [facility] LIPID PANEL,NON -FASTING CHOLESTEROL [MASS/VOLUM E] IN SERUM OR PLASMA 174 mg/dL <199 - 199 09/17 Specimen Type: PLASMA No comment entered. Ordering Provider: ANGIE IYER Report Released Date/Time: Aug 05, 2023 05:03 PM Reporting Lab: [facility] [address] Performing Lab: [facility] [address] [facility] LIPID PANEL,NON -FASTING CHOLESTEROL IN HDL [MASS/VOLUM E] IN SERUM OR PLASMA 46 mg/dL 40 09/17 Specimen Type: PLASMA No comment entered. Ordering Provider: ANGIE IYER Report Released Date/Time: Aug 05, 2023 05:03 PM Reporting Lab: [facility] [address] Performing Lab: [facility] [address] [facility] LIPID PANEL,NON -FASTING CHOLESTEROL IN LDL [MASS/VOLUM E] IN SERUM OR PLASMA BY CALCULATION 96 mg/dL <99 - 99 09/17 Specimen Type: PLASMA No comment entered. Ordering Provider: ANGIE IYER Report Released Date/Time: Aug 05, 2023 05:03 PM Reporting Lab: [facility] [address] Performing Lab: [facility] [address] [facility] LIPID PANEL,NON -FASTING CHOLESTEROL IN VLDL [MASS/VOLUM E] IN SERUM OR PLASMA BY CALCULATION 32 mg/dL <29 - 29 09/17 H Specimen Type: PLASMA No comment entered. Ordering Provider: ANGIE IYER Report Released Date/Time: Aug 05, 2023 05:03 PM Reporting Lab: [facility] [address] Performing Lab: [facility] [address] [facility] LIPID PANEL,NON -FASTING CHOLESTEROL NON HDL [MASS/VOLUM E] IN SERUM OR PLASMA 128 mg/dL <129 - 129 09/17 Specimen Type: PLASMA No comment entered. Ordering Provider: ANGIE IYER Report Released Date/Time: Aug 05, 2023 05:03 PM Reporting Lab: [facility] [address] Performing Lab: [facility] [address] [facility] LIPID PANEL,NON -FASTING TRIGLYCERID E [MASS/VOLUM E] IN SERUM OR PLASMA 162 mg/dL <149 - 149 09/17 H Specimen Type: PLASMA No comment entered. Ordering Provider: ANGIE IYER Report Released Date/Time: Aug 05, 2023 05:03 PM Reporting Lab: [facility] [address] Performing Lab: [facility] [address] [facility] COMPREHEN SIVE METABOLIC PANEL+MG CREATININE [MASS/VOLUM E] IN SERUM OR PLASMA 1.0 mg/dL 0.7 - 1.2 09/17 Specimen Type: PLASMA No comment entered. Ordering Provider: ANGIE IYER Report Released Date/Time: Aug 05, 2023 05:03 PM Reporting Lab: [facility] [address] Performing Lab: [facility] [address] [facility] COMPREHEN SIVE METABOLIC PANEL+MG UREA NITROGEN [MASS/VOLUM E] IN SERUM OR PLASMA 19 mg/dL 8 - 26 03/29 /2024 Specimen Type: PLASMA No comment entered. Ordering Provider: ANGIE IYER Report Released Date/Time: Aug 05, 2023 05:03 PM Reporting Lab: [facility] [address] Performing Lab: [facility] [address] [facility] COMPREHEN SIVE METABOLIC PANEL+MG GLUCOSE [MASS/VOLUM E] IN SERUM OR PLASMA 109 mg/dL 70 - 100 09/17 H Specimen Type: PLASMA No comment entered. Ordering Provider: ANGIE IYER Report Released Date/Time: Aug 05, 2023 05:03 PM Reporting Lab: [facility] [address] Performing Lab: [facility] [address] [facility] COMPREHEN SIVE METABOLIC PANEL+MG SODIUM [MOLES/VOLU ME] IN SERUM OR PLASMA 138 mmol/L 136 - 145 09/17 Specimen Type: PLASMA No comment entered. Ordering Provider: ANGIE IYER Report Released Date/Time: Aug 05, 2023 05:03 PM Reporting Lab: [facility] [address] Performing Lab: [facility] [address] [facility] COMPREHEN SIVE METABOLIC PANEL+MG POTASSIUM [MOLES/VOLU ME] IN SERUM OR PLASMA 4.0 mmol/L 3.5 - 5.1 09/17 Specimen Type: PLASMA No comment entered. Ordering Provider: ANGIE IYER Report Released Date/Time: Aug 05, 2023 05:03 PM Reporting Lab: [facility] [address] Performing Lab: [facility] [address] [facility] COMPREHEN SIVE METABOLIC PANEL+MG CHLORIDE [MOLES/VOLU ME] IN SERUM OR PLASMA 102 mmol/L 98 - 107 09/17 Specimen Type: PLASMA No comment entered. Ordering Provider: ANGIE IYER Report Released Date/Time: Aug 05, 2023 05:03 PM Reporting Lab: [facility] [address] Performing Lab: [facility] [address] [facility] COMPREHEN SIVE METABOLIC PANEL+MG CARBON DIOXIDE, TOTAL [MOLES/VOLU ME] IN SERUM OR PLASMA 26 mmol/L 09/17 Specimen Type: PLASMA No comment entered. Ordering Provider: ANGIE IYER Report Released Date/Time: Aug 05, 2023 05:03 PM Reporting Lab: [facility] [address] Performing Lab: [facility] [address] [facility] COMPREHEN SIVE METABOLIC PANEL+MG CALCIUM [MASS/VOLUM E] IN SERUM OR PLASMA 9.9 mg/dL 8.4 - 10.2 09/17 Specimen Type: PLASMA No comment entered. Ordering Provider: ANGIE IYER Report Released Date/Time: Aug 05, 2023 05:03 PM Reporting Lab: [facility] [address] Performing Lab: [facility] [address] [facility] COMPREHEN SIVE METABOLIC PANEL+MG PROTEIN [MASS/VOLUM E] IN SERUM OR PLASMA 7.1 g/dL 6.0 - 8.3 09/17 Specimen Type: PLASMA No comment entered. Ordering Provider: ANGIE IYER Report Released Date/Time: Aug 05, 2023 05:03 PM Reporting Lab: [facility] [address] Performing Lab: [facility] [address] [facility] COMPREHEN SIVE METABOLIC PANEL+MG ALBUMIN [MASS/VOLUM E] IN SERUM OR PLASMA 4.3 g/dL 3.5 - 5.2 09/17 Specimen Type: PLASMA No comment entered. Ordering Provider: ANGIE IYER Report Released Date/Time: Aug 05, 2023 05:03 PM Reporting Lab: [facility] [address] Performing Lab: [facility] [address] [facility] COMPREHEN SIVE METABOLIC PANEL+MG BILIRUBIN.T OTAL [MASS/VOLUM E] IN SERUM OR PLASMA 0.9 mg/dL 0.2 - 1.2 09/17 Specimen Type: PLASMA No comment entered. Ordering Provider: ANGIE IYER Report Released Date/Time: Aug 05, 2023 05:03 PM Reporting Lab: [facility] [address] Performing Lab: [facility] [address] [facility] COMPREHEN SIVE METABOLIC PANEL+MG MAGNESIUM [MASS/VOLUM E] IN SERUM OR PLASMA 1.8 mg/dL 1.6 - 2.6 09/17 Specimen Type: PLASMA No comment entered. Ordering Provider: ANGIE IYER Report Released Date/Time: Aug 05, 2023 05:03 PM Reporting Lab: [facility] [address] Performing Lab: [facility] [address] [facility] COMPREHEN SIVE METABOLIC PANEL+MG ANION GAP IN SERUM OR PLASMA 10 mmol/L 5 - 15 09/17 Specimen Type: PLASMA No comment entered. Ordering Provider: ANGIE IYER Report Released Date/Time: Aug 05, 2023 05:03 PM Reporting Lab: [facility] [address] Performing Lab: [facility] [address] [facility] COMPREHEN SIVE METABOLIC PANEL+MG ALKALINE PHOSPHATASE [ENZYMATIC ACTIVITY/VO LUME] IN SERUM OR PLASMA 63 U/L 40 - 150 09/17 Specimen Type: PLASMA No comment entered. Ordering Provider: ANGIE IYER Report Released Date/Time: Aug 05, 2023 05:03 PM Reporting Lab: [facility] [address] Performing Lab: [facility] [address] [facility] COMPREHEN SIVE METABOLIC PANEL+MG ALANINE AMINOTRANSF ERASE [ENZYMATIC ACTIVITY/VO LUME] IN SERUM OR PLASMA 27 U/L <55 - 55 09/17 Specimen Type: PLASMA No comment entered. Ordering Provider: ANGIE IYER Report Released Date/Time: Aug 05, 2023 05:03 PM Reporting Lab: [facility] [address] Performing Lab: [facility] [address] [facility] COMPREHEN SIVE METABOLIC PANEL+MG ASPARTATE AMINOTRANSF ERASE [ENZYMATIC ACTIVITY/VO LUME] IN SERUM OR PLASMA 25 U/L <34 - 34 09/17 Specimen Type: PLASMA No comment entered. Ordering Provider: ANGIE IYER Report Released Date/Time: Aug 05, 2023 05:03 PM Reporting Lab: [facility] [address] Performing Lab: [facility] [address] [facility] COMPREHEN SIVE METABOLIC PANEL+MG GLOMERULAR FILTRATION RATE/1.73 SQ M.PREDICTED [VOLUME RATE/AREA] IN SERUM, PLASMA OR BLOOD BY CREATININE- BASED FORMULA (CKD-EPI 2020) 77 60 09/17 Specimen Type: PLASMA No comment entered. Ordering Provider: ANGIE IYER Report Released Date/Time: Aug 05, 2023 05:03 PM Reporting Lab: [facility] [address] Performing Lab: [facility] [address] [facility] Vital Signs Combined list of [...] [place] [facility] ADMN SARSCOV2 VACC 1 DOSE [id number] Diagnos is: ICD-10- CM Z23 Encount er for immuniz ation<b r/> Lucy LAW 05/22 [place] [facility] [place] [facility] Outpatient Encounter [id number] 05/22 [facility] [place] Outpatient Encounter [id number] 06/02 [place] [facility] Outpatient Encounter [id number] 08/05 [facility] [place] Outpatient Encounter [id number] DIGNA JACQUES 09/17 [facility] Outpatient Encounter [id number] Diagnos is: ICD-10- CM D07.5 Carcino ma in situ of prostat e
FLORENCIO IYER 09/20 [facility] [place] [facility] Outpatient Encounter [id number] CORBY LOPEZ 01/10 [place] [facility] [place] Outpatient Encounter [id number] Vince GRAHAM 01/11 [facility] [place] Outpatient Encounter [id number] HERMELINDA MCCULLOUGH SA 01/12 [facility] [place] [facility] Outpatient Encounter [id number] 01/21 [place] [facility] [place] [facility] Outpatient Encounter [id number] Kimberly JAIMES 02/03 [facility] [place] [facility] Outpatient Encounter [id number] 02/03 [facility] Outpatient Encounter [id number] 03/15 [facility] [place] [facility] OFF/OP EST OCTOBER X REQ PHY/QHP [id number] Diagnos is: ICD-10- CM Z23 Encount er for immuniz ation<b r/> KEREN,FABIEN ORAH A 03/16 [place] [facility] Outpatient Encounter [id number] 06/11 [facility] Social History Combined list of available smoking, tobacco, and other social history from Department of Defense and [facility] facilities. Social History Type Response Date Comment [facility] e Tobacco smoking status [facility] NEVER USED 09/18/2023 [facility]2022 [facility] 03[facility]04/2021 [facility] 09/27/2018 [facility] History of tobacco use 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 DIRECT ENTRY [employer]WIFE USER 10/14/2017 [facility] History of tobacco use 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 DIRECT ENTRY MIDWIFE USER 11/03/2016 [facility] History of tobacco use 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 DIRECT ENTRY MIDWIFE USER 10/23/2015 [facility] History of tobacco use 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 DIRECT ENTRY MIDWIFE USER 10/25/2014 [facility] History of tobacco use 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 DIRECT ENTRY MIDWIFE USER 09/28/2013 [facility] History of tobacco use 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 DIRECT ENTRY MIDWIFE USER 08/16/2012 [facility] History of tobacco use 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-USER OF TOBACCO 01/07/2010 [facility] History of tobacco use 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 DIRECT ENTRY MIDWIFE USER 07/20/2006 [facility] Advance Directives List of completed, amended, or rescinded Advance Directives on record at Department of [facility] Affairs facilities. An actual copy of the Directive is not included. Date Advance Directive Provider Source 10/08/2021 ADVANCE DIRECTIVE KRISTINE PINK [facility] 06/27/2011 ADVANCE DIRECTIVE DISCUSSION KENYA AVILA [facility] 06/27/2011 ADVANCE DIRECTIVE KENYA AVILA [facility]
--- OUTSIDE RECORDS SUMMARY | 2024-06-20 12:49 | XMS_ITS | Continuity of Care Document ---
Author Name [facility] Organization [facility] Care Team Providers Care Senior Information Security Analyst Name Role Phone [facility] Unavailable Unavailable Problems Combined list of problems from Department of Defense and Veterans Affairs facilities. It does not include entries that were removed or entered in error. 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) Active 976 Condition Aug 16, 2012 Entered By: GAURAV IYER Comment: s/p Photo Therapeutic Keratotomy in 2012 Entered By: GAURAV IYER Comment: Corneal transplant for recurrent ulcers in 2012 Entered By: GAURAV IYER Comment: Catract extraction in 2012 Entered By: GAURAV IYER Comment: Bleropheroplasty in 04/2011 [facility] Adjustment Disorder with Anxiety (ICD-9-CM 309.24) Active Condition [facility] Benign essential hypertension (SNOMED CT 9709308) Active Condition [facility] DJD * (ICD-9-CM 715.90) Active Condition [facility] F5 (Coagulation factor V) (eg, Hereditary Hypercoagulabilit y) Gene Analysis, Lei Active Condition Aug 16, 2012 Entered By: GAURAV IYER Comment: dx in 2009 prior to knee replaceement [facility] History of male erectile disorder (SNOMED CT 164034779) Active Condition [facility] HTN * (ICD-9-CM 401.9) Active Condition [facility] Hyperglycemia * (ICD-9-CM 790.29) Active Condition [facility] Hyperlipidemia (SNOMED CT 60759356) Active Condition [facility] Hyperlipidemia * (ICD-9-CM 272.4) Active Condition [facility] Inguinal hernia, without mention of obstruction or gangrene Active Condition Aug 16, 2012 Entered By: GAURAV IYER Comment: s/p L hernioraphy in 2007 and Rt in 2010 [facility] Keratoconus Nos Active Condition [facility] Kidney stone (SNOMED CT 51339712) Active Condition Aug 16, 2012 Entered By: GAURAV IYER Comment: s/p cystoscopy in 2012 Entered By: GAURAV IYER Comment: recurrence in 2007 but no further interventionsAug 16, 2012 Entered By: GAURAV IYER Comment: CT scan in 01/30 Stable [facility] Nephrolithiasis * (ICD-9-CM 592.0) Active Condition [facility] Osteoarthritis (SNOMED CT 819884894) Active Condition Aug 16, 2012 Entered By: GAURAV IYER Comment: Rt knee injury in 1968. 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 [facility] Medications Combined list of outpatient medications [...] DOSE) FOR CHOLESTE ROL ORAL ACTIVE 09/21/2024 [id number] JAYLON,ARS HAD 2023 90 [facility] ATORVASTATI N CA 20MG TAB TAKE ONE TABLET BY MOUTH AT BEDTIME (FULL TABLET DOSE) FOR CHOLESTE ROL ORAL DISCONT INUED 01/28/2024 [id number] 4 JAYLON,ARS HAD 2022 90 [facility] EPINEPHRINE (EQV-EPI-PE N) 0.3MG/0.3ML INJECTOR INJECT 1 PEN DIRECTED NEEDED FOR ALLERGIC REACTION ACTIVE 11/24/2024 [id number] 4 JAYLON,ARS HAD 2023 2 [facility] GLUCOSAMINE CAP/TAB TAKE ACTIVE JAYLON,ARS HAD 2012 [facility] HYDROCHLORO THIAZIDE 12.5MG/GAYE NOPRIL 20MG TAB TAKE 1 TABLET BY MOUTH EVERY DAY ORAL 05/05/2024 [id number] 4 JAYLON,ARS HAD 2022 90 [facility] MARINE LIPID (FISH OIL) CAP,ORAL TAKE 3000GRAM BY MOUTH ORAL ACTIVE JAYLON,ARS HAD 2012 [facility] MULTIVITAMI NS CAP/TAB TAKE ONE TABLET BY MOUTH EVERY DAY ORAL ACTIVE JAYLON,ARS HAD 2012 [facility] SILDENAFIL CITRATE 100MG TAB TAKE ONE TABLET BY MOUTH NEEDED 1 HOUR BEFORE ANTICIPA HIGINIO SEXUAL ACTIVITY ORAL 05/05/2024 [id number] 4 JAYLON,ARS HAD 2022 18 [facility] Allergies, Adverse Reactions, Alerts Combined list of allergies from Department of Defense and Veterans Affairs facilities. It does not include entries that were removed or entered in error. Substance Category Reaction Severity Reaction type Status Date Reported Comments Source BEE STINGS Propensity to adverse reaction (finding) active 7 [facility] BEE STINGS Propensity to adverse reaction (finding) Anaphylaxis active 3 [facility] Immunizations Combined list of available immunizations from the Department of Defense and Veterans Affairs facilities. Immunization Series Date Given Administered By Site Reaction Lot Number CVX Code Drug Hearse Driver Status Comments Source INFLUENZA, SPLIT VIRUS, TRIVALENT, PF 2023 KEKE VELIZ LEFT DELTO ID [id number] 140 complet ed [place] [facility] COVID-19 (PFIZER), MRNA, LNP-S, PF, NEAL-SUCROSE, 30 MCG/0.3 ML (AGES 12+ YEARS) 1 2022 SERJIO ALW RIGHT DELTO ID [id number] 309 complet ed [place] [facility] INFLUENZA, HIGH-DOSE, QUADRIVALENT 2022 SERJIO LAW RIGHT DELTO ID [id number] 197 complet ed [place] COVID-19 (PFIZER), MRNA, LNP-S, BIVALENT BOOSTER, PF, 30 MCG/0.3 ML DOSE 1 2021 300 complet ed PFR; [id number]; 3 [facility] INFLUENZA VACCINE, QUADRIVALENT, ADJUVANTED 2021 205 complet ed [facility] COVID-19 (PFIZER), MRNA, LNP-S, PF, 30 MCG/0.3 ML DOSE, NEAL-SUCROSE (AGES 12+ YEARS) 4 2021 217 complet ed PFR; [id number]; 2 [place] [facility] COVID-19 (PFIZER), MRNA, LNP-S, PF, 30 MCG/0.3 ML DOSE 3 2020 208 complet ed PFR; [id number]; 1 [place] [facility] INFLUENZA, INJECTABLE, QUADRIVALENT, PRESERVATIVE FREE 2020 150 complet ed [facility] COVID-19 (PFIZER), MRNA, LNP-S, PF, 30 MCG/0.3 ML DOSE 2 2020 208 complet ed PFR; [id number]; 1 [facility] COVID-19 (PFIZER), MRNA, LNP-S, PF, 30 MCG/0.3 ML DOSE 1 2020 208 complet ed PFR; [id number]; 1 [facility] INFLUENZA, INJECTABLE, QUADRIVALENT, PRESERVATIVE FREE 2019 150 complet ed [place] [facility] INFLUENZA, HIGH DOSE SEASONAL 2018 135 complet ed [facility] TD (ADULT) 2015 138 complet ed [employer], [id number], 7 [facility] ZOSTER LIVE 2014 121 complet ed [employer] lot# [id number], expiratio n 06-14- [facility] TD (ADULT), 2 LF TETANUS TOXOID, PRESERVATIVE FREE, ADSORBED 2010 09 complet ed [facility] TDAP 2005 115 complet ed [facility] TD(ADULT) UNSPECIFIED FORMULATION 2002 139 complet ed [facility] TD (ADULT), 2 LF TETANUS TOXOID, PRESERVATIVE FREE, ADSORBED 1993 09 complet ed [facility] Results Combined list of recent chemistry, hematology [...] Aug 05, 2023 05:03 PM Reporting Lab: [facility] [address] Performing Lab: [facility] [phone] [facility] PSA PROSTATE SPECIFIC AG [MASS/VOLUM E] IN SERUM OR PLASMA <0.01n g/mL <4.00 - 4.00 09/17 Specimen Type: SERUM No comment entered. Ordering Provider: ANGIE IYER Report Released Date/Time: Aug 05, 2023 05:03 PM Reporting Lab: [facility] [address] Performing Lab: [facility] [address] [facility] TSH W/REFLEX TO FREE T4 THYROTROPIN [UNITS/VOLU ME] IN SERUM OR PLASMA 1.61 u[IU]/ mL 0.35 - 4.94 09/17 Specimen Type: PLASMA No comment entered. Ordering Provider: ANGIE IYER Report Released Date/Time: Aug 05, 2023 05:03 PM Reporting Lab: [facility] [address] Performing Lab: [facility] [address] [facility] LIPID PANEL,NON -FASTING CHOLESTEROL [MASS/VOLUM E] IN SERUM OR PLASMA 174 mg/dL <199 - 199 09/17 Specimen Type: PLASMA No comment entered. Ordering Provider: ANGIE IYER Report Released Date/Time: Aug 05, 2023 05:03 PM Reporting Lab: [facility] [address] Performing Lab: [facility] [address] [facility] LIPID PANEL,NON -FASTING CHOLESTEROL IN HDL [MASS/VOLUM E] IN SERUM OR PLASMA 46 mg/dL 40 09/17 Specimen Type: PLASMA No comment entered. Ordering Provider: ANGIE IYER Report Released Date/Time: Aug 05, 2023 05:03 PM Reporting Lab: [facility] [phone] Performing Lab: [facility] [phone] [facility] LIPID PANEL,NON -FASTING CHOLESTEROL IN LDL [MASS/VOLUM E] IN SERUM OR PLASMA BY CALCULATION 96 mg/dL <99 - 99 09/17 Specimen Type: PLASMA No comment entered. Ordering Provider: ANGIE IYER Report Released Date/Time: Aug 05, 2023 05:03 PM Reporting Lab: [facility] [address] Performing Lab: [facility] [phone] [facility] LIPID PANEL,NON -FASTING CHOLESTEROL IN VLDL [MASS/VOLUM E] IN SERUM OR PLASMA BY CALCULATION 32 mg/dL <29 - 29 09/17 H Specimen Type: PLASMA No comment entered. Ordering Provider: ANGIE IYER Report Released Date/Time: Aug 05, 2023 05:03 PM Reporting Lab: [facility] [phone] Performing Lab: [facility] [phone] [facility] LIPID PANEL,NON -FASTING CHOLESTEROL NON HDL [MASS/VOLUM E] IN SERUM OR PLASMA 128 mg/dL <129 - 129 09/17 Specimen Type: PLASMA No comment entered. Ordering Provider: ANGIE IYER Report Released Date/Time: Aug 05, 2023 05:03 PM Reporting Lab: [facility] [address] Performing Lab: [facility] [phone] [facility] LIPID PANEL,NON -FASTING TRIGLYCERID E [MASS/VOLUM E] IN SERUM OR PLASMA 162 mg/dL <149 - 149 09/17 H Specimen Type: PLASMA No comment entered. Ordering Provider: ANGIE IYER Report Released Date/Time: Aug 05, 2023 05:03 PM Reporting Lab: [facility] [address] Performing Lab: [facility] [address] [facility] COMPREHEN SIVE METABOLIC PANEL+MG CREATININE [MASS/VOLUM E] IN SERUM OR PLASMA 1.0 mg/dL 0.7 - 1.2 09/17 Specimen Type: PLASMA No comment entered. Ordering Provider: ANGIE IYER Report Released Date/Time: Aug 05, 2023 05:03 PM Reporting Lab: [facility] [address] Performing Lab: [facility] [phone] [facility] COMPREHEN SIVE METABOLIC PANEL+MG UREA NITROGEN [MASS/VOLUM E] IN SERUM OR PLASMA 19 mg/dL 8 - 26 03/29 /2024 Specimen Type: PLASMA No comment entered. Ordering Provider: ANGIE IYER Report Released Date/Time: Aug 05, 2023 05:03 PM Reporting Lab: [facility] [address] Performing Lab: [facility] [phone] [facility] COMPREHEN SIVE METABOLIC PANEL+MG GLUCOSE [MASS/VOLUM E] IN SERUM OR PLASMA 109 mg/dL 70 - 100 09/17 H Specimen Type: PLASMA No comment entered. Ordering Provider: ANGIE IYER Report Released Date/Time: Aug 05, 2023 05:03 PM Reporting Lab: [facility] [address] Performing Lab: [facility] [phone] [facility] COMPREHEN SIVE METABOLIC PANEL+MG SODIUM [MOLES/VOLU ME] IN SERUM OR PLASMA 138 mmol/L 136 - 145 09/17 Specimen Type: PLASMA No comment entered. Ordering Provider: ANGIE IYER Report Released Date/Time: Aug 05, 2023 05:03 PM Reporting Lab: [facility] [address] Performing Lab: [facility] [phone] [facility] COMPREHEN SIVE METABOLIC PANEL+MG POTASSIUM [MOLES/VOLU ME] IN SERUM OR PLASMA 4.0 mmol/L 3.5 - 5.1 09/17 Specimen Type: PLASMA No comment entered. Ordering Provider: ANGIE IYER Report Released Date/Time: Aug 05, 2023 05:03 PM Reporting Lab: [facility] [address] Performing Lab: [facility] [phone] [facility] COMPREHEN SIVE METABOLIC PANEL+MG CHLORIDE [MOLES/VOLU ME] IN SERUM OR PLASMA 102 mmol/L 98 - 107 09/17 Specimen Type: PLASMA No comment entered. Ordering Provider: ANGIE IYER Report Released Date/Time: Aug 05, 2023 05:03 PM Reporting Lab: [facility] [address] Performing Lab: [facility] [phone] [facility] COMPREHEN SIVE METABOLIC PANEL+MG CARBON DIOXIDE, TOTAL [MOLES/VOLU ME] IN SERUM OR PLASMA 26 mmol/L 09/17 Specimen Type: PLASMA No comment entered. Ordering Provider: ANGIE IYER Report Released Date/Time: Aug 05, 2023 05:03 PM Reporting Lab: [facility] [phone] Performing Lab: [facility] [phone] [facility] COMPREHEN SIVE METABOLIC PANEL+MG CALCIUM [MASS/VOLUM E] IN SERUM OR PLASMA 9.9 mg/dL 8.4 - 10.2 09/17 Specimen Type: PLASMA No comment entered. Ordering Provider: ANGIE IYER Report Released Date/Time: Aug 05, 2023 05:03 PM Reporting Lab: [facility] [address] Performing Lab: [facility] [phone] [facility] COMPREHEN SIVE METABOLIC PANEL+MG PROTEIN [MASS/VOLUM E] IN SERUM OR PLASMA 7.1 g/dL 6.0 - 8.3 09/17 Specimen Type: PLASMA No comment entered. Ordering Provider: ANGIE IYER Report Released Date/Time: Aug 05, 2023 05:03 PM Reporting Lab: [facility] [address] Performing Lab: [facility] [address] [facility] COMPREHEN SIVE METABOLIC PANEL+MG ALBUMIN [MASS/VOLUM E] IN SERUM OR PLASMA 4.3 g/dL 3.5 - 5.2 09/17 Specimen Type: PLASMA No comment entered. Ordering Provider: ANGIE IYER Report Released Date/Time: Aug 05, 2023 05:03 PM Reporting Lab: [facility] [phone] Performing Lab: [facility] [phone] [facility] COMPREHEN SIVE METABOLIC PANEL+MG BILIRUBIN.T OTAL [MASS/VOLUM E] IN SERUM OR PLASMA 0.9 mg/dL 0.2 - 1.2 09/17 Specimen Type: PLASMA No comment entered. Ordering Provider: ANGIE IYER Report Released Date/Time: Aug 05, 2023 05:03 PM Reporting Lab: [facility] [address] Performing Lab: [facility] [phone] [facility] COMPREHEN SIVE METABOLIC PANEL+MG MAGNESIUM [MASS/VOLUM E] IN SERUM OR PLASMA 1.8 mg/dL 1.6 - 2.6 09/17 Specimen Type: PLASMA No comment entered. Ordering Provider: ANGIE IYER Report Released Date/Time: Aug 05, 2023 05:03 PM Reporting Lab: [facility] [address] Performing Lab: [facility] [address] [facility] COMPREHEN SIVE METABOLIC PANEL+MG ANION GAP IN SERUM OR PLASMA 10 mmol/L 5 - 15 09/17 Specimen Type: PLASMA No comment entered. Ordering Provider: ANGIE IYER Report Released Date/Time: Aug 05, 2023 05:03 PM Reporting Lab: [facility] [address] Performing Lab: [facility] [phone] [facility] COMPREHEN SIVE METABOLIC PANEL+MG ALKALINE PHOSPHATASE [ENZYMATIC ACTIVITY/VO LUME] IN SERUM OR PLASMA 63 U/L 40 - 150 09/17 Specimen Type: PLASMA No comment entered. Ordering Provider: ANGIE IYER Report Released Date/Time: Aug 05, 2023 05:03 PM Reporting Lab: [facility] [address] Performing Lab: [facility] [phone] [facility] COMPREHEN SIVE METABOLIC PANEL+MG ALANINE AMINOTRANSF ERASE [ENZYMATIC ACTIVITY/VO LUME] IN SERUM OR PLASMA 27 U/L <55 - 55 09/17 Specimen Type: PLASMA No comment entered. Ordering Provider: ANGIE IYER Report Released Date/Time: Aug 05, 2023 05:03 PM Reporting Lab: [facility] [address] Performing Lab: [facility] [address] [facility] COMPREHEN SIVE METABOLIC PANEL+MG ASPARTATE AMINOTRANSF ERASE [ENZYMATIC ACTIVITY/VO LUME] IN SERUM OR PLASMA 25 U/L <34 - 34 09/17 Specimen Type: PLASMA No comment entered. Ordering Provider: ANGIE IYER Report Released Date/Time: Aug 05, 2023 05:03 PM Reporting Lab: [facility] [phone] Performing Lab: [facility] [address] [facility] COMPREHEN SIVE METABOLIC PANEL+MG GLOMERULAR FILTRATION RATE/1.73 SQ M.PREDICTED [VOLUME RATE/AREA] IN SERUM, PLASMA OR BLOOD BY CREATININE- BASED FORMULA (CKD-EPI 2020) 77 60 09/17 Specimen Type: PLASMA No comment entered. Ordering Provider: ANGIE IYER Report Released Date/Time: Aug 05, 2023 05:03 PM Reporting Lab: [facility] [address] Performing Lab: [facility] [phone] [facility] Vital Signs Combined list of [...] [place] [facility] ADMN SARSCOV2 VACC 1 DOSE [id number] Diagnos is: ICD-10- CM Z23 Encount er for immuniz ation<b r/> Lucy LAW 05/22 [place] [facility] [place] [facility] Outpatient Encounter [id number] 05/22 [facility] [place] [facility] Outpatient Encounter [id number] 06/02 [place] [facility] [place] [facility] Outpatient Encounter [id number] 08/05 [facility] [place] [facility] Outpatient Encounter [id number] DIGNA JACQUES 09/17 [facility] Outpatient Encounter [id number] Diagnos is: ICD-10- CM D07.5 Carcino ma in situ of prostat e
FLORENCIO IYER 09/20 [facility] [place] [facility] Outpatient Encounter [id number] CORBY LOPEZ 01/10 [place] [facility] [place] [facility] Outpatient Encounter [id number] Vince GRAHAM 01/11 [facility] [place] [facility] Outpatient Encounter [id number] HERMELINDA MCCULLOUGH SA 01/12 [facility] [place] [facility] Outpatient Encounter [id number] 01/21 [place] [facility] [place] [facility] Outpatient Encounter [id number] Kimberly JAIMES 02/03 [facility] [place] [facility] Outpatient Encounter [id number] 02/03 [facility] [place] [facility] Outpatient Encounter [id number] 03/15 [facility] [place] [facility] OFF/OP EST OCTOBER X REQ PHY/QHP [id number] Diagnos is: ICD-10- CM Z23 Encount er for immuniz ation<b r/> KEREN,FABIEN ORAH A 03/16 [place] [facility] [facility] Outpatient Encounter [id number] 06/11 [facility] Social History Combined list of available smoking, tobacco, and other social history from Department of Defense and [facility] facilities. 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 USER 10/14/2017 [facility] History of tobacco use 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 INDUSTRIAL MACHINERY MECHANIC USER 11/03/2016 [facility] History of tobacco use 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 MACHINERY MECHANIC USER 10/23/2015 [facility] History of tobacco use 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 INDUSTRIAL MACHINERY MECHANIC USER 10/25/2014 [facility] History of tobacco use 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 An actual copy of the Directive is not included. Date Advance Directive Provider Source 10/08/2021 ADVANCE DIRECTIVE KRISTINE PINK [facility] 06/27/2011 ADVANCE DIRECTIVE DISCUSSION KENYA AVILA [facility] 06/27/2011 ADVANCE DIRECTIVE KENYA AVILA [facility]
== END 2024-07-28 15:21 | disposition home or self-care (01) ==
PROVIDERS: PCP Orthopaedic Surgery Sports Medicine; Visit Provider Orthopaedic Surgery Sports Medicine
DX: M17.12 Unilateral primary osteoarthritis, left knee (principal); Z96.652 Presence of left artificial knee joint; M25.562 Pain in left knee; R26.9 Unspecified abnormalities of gait and mobility; R26.81 Unsteadiness on feet; M62.81 Muscle weakness (generalized); Z74.09 Other reduced mobility; Z51.89 Encounter for other specified aftercare
CPT/HCPCS: 97110; 97140; 97161; 97164

== ENCOUNTER 2025-03-08 06:42 | Day surgery (SDC) | payer OTHER, SELFPAY ==
[2025-03-08] VITALS (14 sets, daily range): BP systolic 82–147; BP diastolic 59–93; PULSE 65–757; RESP 12–16; TEMP 35.5–36.6; O2SAT 93–99; BMI 28.0
--- NOTE | 2025-03-08 07:38 | W.PM.H&PU ---
History & Physical Update History & Physical Update H&P Reviewed and patient assessed: The following changes are noted below H&P Updates: He has pain over the anterior aspect of the left knee particularly after rising from a low chair. This pain seems to be just deep to the superficial pole of the patella, per his report. He is not on Eliquis. He has not been taking that medicine for multiple months. No other changes noted.
[2025-03-08] MEDS: LACTATED RINGERS 1000 ML 1,000 ML 100 ML IV (08:21)
[2025-03-08] MEDS: SODIUM CHLORIDE 0.9 % (FLUSH) 10 ML SYRINGE IVF (08:21)
[2025-03-08] MEDS: ROPIVACAINE 0.5% 30 ML 150 MG INJECTION (09:58)
--- NOTE | 2025-03-08 10:10 | P.ANES_ITS ---
Anesthesia Charges Start Date/Time Anesthesia Start Date: 03/08/25 Anesthesia Start Time: 08:56 Stop Date/Time Anesthesia Stop Date: 03/08/25 Anesthesia Stop Time: 10:11 Summary Extremes of Age - Over 70 or under 1: DIRECTOR OF ANALYTICAL DEVELOPMENT Coding CPT Codes CPT Codes: ANESTH KNEE JOINT SURGERY - 00269 ([id number]) P2 - PATIENT W/MILD SYST DISEASE, QK - AUXILIARY POWERPLANT OPERATOR 2-4 CNCRNT ANES PROC, QX - DIRECTOR OF ANALYTICAL DEVELOPMENT SVC W/ MD MED DIRECTION Additional Codes: Summary - Extremes of Age - Over 70 or under 1: DIRECTOR OF ANALYTICAL DEVELOPMENT ([id number])
--- NOTE | 2025-03-08 10:10 | W.ANESCHARGE ---
Anesthesia Charges Start Date/Time Anesthesia Start Date: 03/08/25 Anesthesia Start Time: 08:56 Stop Date/Time Anesthesia Stop Date: 03/08/25 Anesthesia Stop Time: 10:11 Summary Extremes of Age - Over 70 or under 1: GOLF CART MECHANIC Coding CPT Codes CPT Codes: ANESTH KNEE JOINT SURGERY - 03425 ([id number]) P2 - PATIENT W/MILD SYST DISEASE, QK - CONTROLLER OPERATIONS AND HR MANAGER 2-4 CNCRNT ANES PROC, QX - GOLF CART MECHANIC SVC W/ MD MED DIRECTION Additional Codes: Summary - Extremes of Age - Over 70 or under 1: GOLF CART MECHANIC ([id number])
--- NOTE | 2025-03-08 10:11 | P.ORPRC_ITS ---
Procedure Note Date of procedure: 03/08/25 Procedure: PREOPERATIVE DIAGNOSIS: 1. Left knee patellar clunk following prior TKA POSTOPERATIVE DIAGNOSIS: 1. Left knee patellar clunk following prior TKA PROCEDURE: 1. Left knee arthroscopic extensive excisional debridement including debridement of superior pole patella patellar clunk scar, medial and lateral gutter scar tissue, anterior fat pad scar tissue, etc. SURGEON: Kirk Martinez M.D. APPRENTICE: Ger Childers PA-C. Of note, an orthopedic assistant was critical for this case to aid in patient positioning, knee manipulation, instrument exchange, and closure. ANESTHESIA: Spinal EBL: 2ml TOURNIQUET: 30 min at 250 torr COMPLICATIONS: None evident INDICATIONS: The patient is a pleasant 79-year-old male who has previously undergone a left total knee arthroplasty. While their pain from the preoperative arthritic state has improved, they are now battled some patellar clunk phenomenon in the postoperative time. Initially this was simply an audible noise/palpable feeling, but is become more of a symptomatic process. As such, knee arthroscopy for debridement was recommended. FINDINGS: TKA implants all stable. No evidence of significant scratching or pathology. Regarding the scar, there was abundant scar in the suprapatellar pouch especially at the superior pole patella consistent with patellar clunk. There is also significant scar bands across the anteromedial gutter especially near the tibial tray overlying the polyethylene component on the edges. All this underwent excisional debridement. DESCRIPTION OF PROCEDURE: After a thorough discussion of risks, benefits, and alternatives, the patient was brought to the operating room and placed upon the operating table. Induction of anesthesia was undertaken as previously noted. 2g iv Ancef was administered within 1 hr of incision preoperatively. Appropriate time-out was performed identifying proper patient, site, and procedure. The left lower extremity was prepped and draped in the appropriate sterile fashion using ChloraPrep. The limb was exsanguinated and tourniquet inflated. Anterolateral and anteromedial portals were established with an 11 blade, and a diagnostic arthroscopy was performed. This identified the findings as noted above. Following the diagnostic arthroscopy, an extensive excisional debridement was performed with an excaliber shaver and a 50 degree Lerona cautery device. Following the debridement, the knee was placed through range of motion found have no significant crepitation. At this stage, the shaver was reinserted into the suprapatellar pouch and all remaining debris was evacuated. Instruments were removed, excess fluid was drained, and closure performed with 3-0 Nylon. Dressings were applied, the tourniquet deflated, and the patient was awoken from anesthesia and transferred to the PACU in stable condition. PLAN: 1. Weightbear as tolerated operative extremity. Crutch / walker ambulation assistance PRN. 2. Ice, oral analgesics (e.g. acetaminophen and/or ibuprofen for pain as needed. 3. Knee range of motion and quad sets/straight leg raise regularly 4. Follow up with PA visit in 1-2 weeks for a wound check and possibly to initiate physical therapy.
--- NOTE | 2025-03-08 10:44 | SUR.PHASEI ---
patient met discharge criteria per anesthesia
[2025-03-08] MEDS: LACTATED RINGERS 500 ML 500 ML 100 ML IV (10:45)
--- NOTE | 2025-03-08 11:17 | W.ANESCHARGE ---
Anesthesia Charges Start Date/Time Anesthesia Start Date: 03/08/25 Anesthesia Start Time: 08:56 Stop Date/Time Anesthesia Stop Date: 03/08/25 Anesthesia Stop Time: 10:11 Summary Extremes of Age - Over 70 or under 1: MDA Coding CPT Codes CPT Codes: ANESTH KNEE JOINT SURGERY - 03190 ([id number]) QK - HAND TENNIS BALL COVERER 2-4 CNCRNT ANES PROC, QX - GENERATOR WORKER SVC W/ MD MED DIRECTION, P2 - PATIENT W/MILD SYST DISEASE Additional Codes: Summary - Extremes of Age - Over 70 or under 1: MDA ([id number])
== END 2025-03-08 12:10 | disposition home or self-care (01) ==
LOC: OR 06:44
PROVIDERS: Visit Provider Orthopaedic Surgery Sports Medicine
PROC: (CPT 29870; principal; 2025-03-08 09:15)
DX: M25.862 Other specified joint disorders, left knee (principal); Z96.652 Presence of left artificial knee joint
CPT/HCPCS: 29877; 01400; 99100; J0690; J1100; J1885; J2250; J2371; J2405; J2704; J2795; J7120